=== PATIENT | female | born 1955 ===

== ENCOUNTER → 2017-10-04 | Outpatient (CLI) | payer BC ==
[~2017-10-04] MED LIST: ASPI81TA86 PO; CALC-734 PO; CEPH500C24 PO; CLON-327 PO; DEX4 PO; FOLI0.4T56 PO; IBUP-56 PO; LORA-1455 PO; LOSA50TA72 PO; MAGN27TA6 PO; MULT1CAP59 PO; POTA-23 PO; PROC10TA4 PO; SIMV-54 PO; THIA250T9 PO; TRI05T TP; TRIA15CR40 TOP
== END ==
LOC: RAD 08:40
PROVIDERS: ATTEND Internal Medicine Hematology
DX: C02.1 Malignant neoplasm of border of tongue (principal)

== ENCOUNTER 2017-11-22 08:30 | Outpatient (RCR) | payer BC ==
--- NOTE | 2017-09-26 19:21 | ONCOLOGY CONSULTATION ---
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 Status post primary resection with a right lateral partial glossectomy on April 19, 2017. Tumor size estimated at 1.7 x 1.2 cm with initial positive anterior margin. Adverse features were present including extensive perineural invasion and lymphovascular invasion. Lack of positivity for p16. Patient underwent additional oral biopsy of the floor of mouth and right neck dissection on May 24, 2017. Eight lymph nodes were removed which were all negative for malignancy. The floor of mouth biopsy was unremarkable. STAGE Pathologic T1 N0 M0, intermediate risk with the presence of perineural invasion and angiolymphatic invasion. HISTORY This is a 62-year-old lady who lives in the [place] area. She is referred to the Cancer Center at [facility] by her providers in [place] (her primary surgeon is Dr. Figueroa and she has been seen by Dr. Cassidy for Oncology recommendations). She was advised to strongly consider postoperative radiation therapy and concurrent chemotherapy. The latter will now be directed by Dr. Baldev Kimbrough, who will be seeing the patient on of this week. Excellent notes from Dr. Cassidy accompanied the consultation today and we also have her operative notes and discharge summary from Dr. Figueroa. Briefly, the patient has a significant history of tobacco use as well as ill- fitting dentures. Smoking history of up to two packs per day for most of her life (greater than 45 pack-year). Patient is now down to two cigarettes, but is having trouble stopping completely. The patient relates a palpable irregularity on the lateral aspect of her tongue and pain. She first was found to have a high suspicious lesion by her dentist who was doing a denture adjustment. She was referred to Dr. Driss Roman and was noted to have a lesion on the right ventral tongue and floor of the mouth with biopsy on March 15, 2017 revealing a moderately differentiated squamous cell carcinoma, p16 and stain negative. Patient then had a CT scan of the neck which revealed two right parapharyngeal lymph nodes measuring 1.6 x 0.[address] irregularity along the lateral aspect of the right posterior tongue as well as the floor of the mouth. Lesion measured roughly 1.6 cm. Patient was referred to Dr. Figueroa, who proceeded with a right lateral glossectomy. This confirmed a 1.7 cm grade 2 squamous cell carcinoma. Margins of approximately 3-4 mm. Anterior margin was initially positive. Adverse features also noted were perineural invasion as well as lymphovascular invasion. Patient underwent a second procedure on May 24, 2017, underwent a reexcision specimen from the mouth with a small graft. That specimen was negative for residual carcinoma. Eight lymph nodes were removed from the right neck which were all negative for malignancy. Daughter states that there was a piece of tissue that was lost later, which may have been the graft. Patient has had an uneventful postoperative course. She is able to consume solid and liquid foods. She presently is not wearing her dentures as she fully expects to have additional therapy at this time. Patient has a history of moderate alcohol use. She states she consumes three to four beers per day. She presently has moved to [place] to be close to her daughter who is an ICU nurse at . Patient's daughter accompanied her today for the consultation. MEDICATIONS 1. Losartan 50 mg q.day. 2. Folic acid 1 mg a day. 3. Calcium carbonate 1250 mg q.day. 4. Aspirin 81 mg a day. 5. Simvastatin 40 mg a day. ALLERGIES None. PAST MEDICAL HISTORY 1. Squamous cell carcinoma of the oral cavity with history listed above. 2. History of hypertension. 3. History of hypercholesterolemia. 4. History of tobacco dependence. PAST SURGICAL HISTORY 1. Right partial glossectomy and right neck lymph node dissection. 2. Prior appendectomy. 3. Cholecystectomy. 4. Left hip fracture repair. 5. Remote tubal ligation. SOCIAL HISTORY Lives with family in [place]. Forty to 80 pack per year smoking history. Presently down to two cigarettes per day. Moderate alcohol use. FAMILY HISTORY Notable for type 2 diabetes in one sister and one brother. Carcinoma in a paternal uncle. COMPREHENSIVE REVIEW OF SYSTEMS Patient denies any recent weight changes. No respiratory complaints with the exception of intermittent cough from longstanding smoking. No chest pain or palpitations. No GI complaints. No significant complaints at this time. No focal neurologic complaints. PHYSICAL EXAMINATION GENERAL: A pleasant 62-year-old female of medium build. VITAL SIGNS: Imported to EMR. INTRAORAL INSPECTION: Reveals post surgical changes of partial glossectomy on the right side. There is mild impairment of mobility of the tongue, but overall I would say she has good mobility. Suture line is noted along the floor of the mouth which is smooth. No leukoplakia noted. Gingiva is unremarkable. No secondary lesions appreciated. Tongue is soft. Patient is edentulous. Salivary function appeared to be adequate. LUNGS: Reveal expiratory rhonchi, but otherwise clear. HEART: Sounds regular. No audible murmur. ABDOMEN: Soft. No gross organomegaly. EXTREMITIES: Reveal bilateral clubbing. No cyanosis, however, or edema. NEUROLOGIC: Exam was grossly intact. The patient does have some difficulties with concentration and her short term memory, but when things were repeated to her, she seemed to fully understand. No focal weakness of the upper or lower extremities. IMPRESSION This is a 62-year-old female with a non-HPV related squamous cell carcinoma of the oral cavity. The tumor is 1.7 x 1.2 cm with estimated thickness of 5 mm. She has undergone appropriate surgical resection at this time. Lymph nodes fortunately were negative, although mildly enlarged on the preoperative studies. She did have a recent PET CT scan in [place], and I will try to track the results of that study down within the week. The predominant reason for the patient being seen in Oncology is the findings of two significant adverse features of her malignancy. These adverse features include perineural invasion as well as lymphovascular invasion. Literature search today defined risk of tumor recurrence for patients with oral cavity lesions on the order of 23% to 36% in multiple studies with clear margins. Patients without that feature have a relative risk of local recurrence of 5% to 9%. We have certainly seen higher risk of positive margins and tumor recurrence at other sites as well, including skin and prostate, whenever we see perineural invasion. Patient appeared to have a good understanding of that rationale after our discussion today. I would like to proceed to a postoperative radiotherapy dose of 60 Gy confined to the oral tongue and floor of the mouth, with careful attention to treatment technique with IMRT. We could use the left parotid and submandibular glands as avoidance structures. I should be able to also prevent significant radiotherapy to the right parotid gland. I presently favor covering the submental lymph node chain. I would only extend the radiotherapy course to a wider area if there was any gross lymphadenopathy on her treatment planning CT scan, or any suspicious areas on her recent PET CT scan in [place]. Field reduction will be performed after Gy (50.4 Gy in 28 fractions and 10 Gy in five fractions to complete the course). The patient will see Dr. River on of this week to discuss the possibility of concurrent chemotherapy with cisplatin during the radiation program. The patient has already reviewed the NCCN guidelines with Dr. Cassidy at her appointment, and she also saw the radiation oncologist at that time in [place] just to review the indications. Patient and daughter would like to get started as quickly as possible and I am certain we could make that happen within a timeframe of seven to 10 days. Patient would be refitted for her appropriate dentures about six weeks following the radiotherapy program completion. Therapeutic dose and treatment technique will be altered based on treatment tolerance. Signed consent was obtained today after reviewing potential acute and late side effects and therapeutic alternatives. I would like to thank Dr. Figueroa and Dr. Cassidy for the excellent records which accompanied the patient today. Consultation was completed in approximately 70 minutes from start to finish, allowing time for patient's questions to be answered. Daughter accompanied the patient, who will reiterate the plan to her later this evening. [facility]
--- NOTE | 2017-11-14 18:29 | ONCOLOGY FOLLOW UP NOTE ---
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 CHIEF COMPLAINT Patient is here today for weekly cisplatin. This will be week number seven, concurrent with radiation therapy for her floor of the mouth squamous cell carcinoma. 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 Patient was found to have a lesion in the right ventral tongue and the floor of the mouth. She had a biopsy done on March 15, 2017, which showed moderately differentiated squamous cell carcinoma. P16 stain is negative. CT scan of the neck showed two right parapharyngeal lymph nodes ranging up to 1.6 x 0.9 cm. It also showed irregular enhancing lesion along the right posterior tongue extending laterally to the floor of the mouth with ill-defined margins, roughly 1.6 cm in diameter and 0.6 cm in thickness. Patient has been seen by Dr. Figueroa, the middleware consultant in [place] and had a partial tongue excision without node biopsy or neck dissection done on April 19, 2017, and pathology came back positive for 1.7 cm moderately differentiated squamous cell carcinoma 5 mm thick, anterior margins positive and lymphovascular and perineural invasion are positive. She had a second procedure done on May 24, 2017 including laryngoscopy, right neck dissection and re-excision of the tongue at the floor of the mouth, and the pathology from the biopsy was negative for malignancy, and eight right neck lymph nodes were negative for malignancy. Patient started chemoradiation with weekly cisplatin on October 07, 2017. HISTORY OF PRESENT ILLNESS Patient is here today for week number seven of weekly cisplatin concurrent with radiation therapy for her floor of the mouth squamous cell carcinoma. She is tolerating treatment very well so far, except for hypomagnesemia. Denies any sore throat. She has easy bruising and she is weak, tired and fatigued. Other than that she is really doing very well. PAST MEDICAL HISTORY 1. Hypertension. 2. Hypercholesterolemia. PAST SURGICAL HISTORY 1. Appendectomy. 2. Cholecystectomy. 3. Hip fracture surgery. 4. Laryngoscopy, right neck dissection, re-excision of the tongue at the floor of the mouth. 5. Partial excision of the tongue and excision biopsy of the neck deep. 6. Right neck dissection, re-excision of the tongue and the floor of the mouth. 7. Tubal ligation. 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 She has over 45 years of tobacco abuse. Currently she smokes about two to three cigarettes a day. She drinks about a six pack per day. Denies any abuse of illicit drugs. FAMILY HISTORY Negative for cancer or blood diseases. CURRENT MEDICATIONS 1. Triamcinolone acetonide 0.5% cream topically twice daily. 2. Simvastatin 40 mg at bedtime. 3. Losartan potassium 50 mg tablet daily. 4. Magnesium amino acid chelate 27 mg tablet daily. 5. Folic acid 0.4 mg daily. 6. Calcium carbonate/vitamin D3, 500 mg of calcium one tablet daily. 7. Multivitamin one tablet daily. 8. Ibuprofen 200 mg two tablets as needed orally. ALLERGIES No known drug allergies. REVIEW OF SYSTEMS CONSTITUTIONAL: No appetite or weight change. No fever, chills or sweating. No recent infection. Patient has loss of taste to food. HEENT: Ears: No tinnitus or hearing problem. Nose: She has some nasal discharge. No epistaxis. Throat: She has some sore mouth. Eyes: No diplopia or visual changes. RESPIRATORY: Patient has some cough with expectoration. CARDIOVASCULAR: No chest pain, orthopnea, or paroxysmal nocturnal dyspnea (PND) . No edema. No palpitations. GASTROINTESTINAL: No nausea or vomiting. No diarrhea or constipation. No change in bowel movements. No heartburn or swallowing difficulties. No abdominal pain. No jaundice. No hematemesis, melena or rectal bleeding. GENITOURINARY: She has cloudy urine. MUSCULOSKELETAL: She has pain in the knees. NEUROLOGICAL: No tingling or numbness in the hands or feet. No headaches or convulsions. HEMATOLOGIC/LYMPHATIC: She bruises easily. She is weak, tired and fatigued. SKIN: No skin rash or lumps. PSYCHIATRIC: No anxiety or depression. PHYSICAL EXAMINATION GENERAL: Looks stable. Well-developed, well-nourished, and in no acute distress. VITAL SIGNS: Blood pressure 157/83, pulse 103 per minute, respirations 16 per minute, temperature 97.8, pulse ox 93% on room air. HEENT: Head: Atraumatic. No sinus tenderness to palpation. Eyes: No icterus or conjunctivitis. Mouth and throat: No oral thrush or mucositis. NECK: Supple. No cervical or supraclavicular lymphadenopathy. LUNGS: Clear to auscultation and percussion bilaterally. HEART: Regular rate and rhythm. No gallops, murmurs, clicks or rubs. ABDOMEN: Soft and lax. No tenderness. No hepatosplenomegaly. No masses. EXTREMITIES: No cyanosis, clubbing or edema. LYMPHATICS: No peripheral lymphadenopathy. NEUROLOGICAL: Conscious, alert and oriented times three. No focal motor or sensory deficits. PSYCHIATRIC: Mood and affect appear normal. SKIN: No skin rash, bruise or purpuric eruption. DIAGNOSTIC DATA CBC shows white count 3.4, hemoglobin 12.8, hematocrit 36.7, platelets 112,000. Chem panel totally normal except sodium 124, magnesium 1.4, blood sugar 137 and chloride 87. ASSESSMENT 1. 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 CT scan of the neck showed right parapharyngeal lymph node 1.6 cm., and irregular enhancing mass along the right posterior tongue extending laterally to the floor of the mouth with ill-defined margins. The size of the mass was 1.6 cm . Patient had partial tongue excision without node biopsy or neck dissection done April 19, 2017, and the pathology came back positive for 1.7 cm moderately differentiated squamous cell carcinoma, 5 mm thick. Anterior margin was positive and lymphovascular invasion and perineural invasion were also positive. Patient had re-biopsy and re-excision of the right tongue/floor of the mouth and right neck dissection done May 24, 2017, and the pathology showed no residual tumor, and eight neck lymph nodes were negative for metastasis. Given the adverse effects of perineural invasion and lymphovascular invasion, radiation therapy or concurrent chemoradiation is recommended. Patient started chemoradiation with cisplatin weekly as radiosensitizer started October 07, 2017. Patient finished six courses so far, and she is due for her course number seven on November 18, 2017. I am planning to proceed with her treatment as scheduled. Patient is tolerating chemoradiation very well currently except for magnesium wasting and sodium wasting. 2. Hyponatremia, most probably due to cisplatin therapy. Patient is taking sodium salts. 3. Hypomagnesemia. Current magnesium 1.4. Patient is encouraged to use her magnesium supplement orally. PLAN 1. Cisplatin. This will be cycle number seven to be given on November 18, 2017. 2. Patient to return in one week with CBC, chem panel and magnesium level. 3. Continue sodium and magnesium supplement orally. 4. Patient is to contact us for any new concerns or complaints. [facility]
[~2017-11-22 08:30] MED LIST changes: +FLUC100T35 PO
== END 2017-12-22 ==
LOC: RAON 08:30
PROVIDERS: ATTEND Radiology Radiation Oncology
DX: Z51.0 Encounter for antineoplastic radiation therapy (principal); C02.1 Malignant neoplasm of border of tongue; F17.210 Nicotine dependence, cigarettes, uncomplicated
CPT/HCPCS: 77280; 77290; 77300; 77301; 77334; 77336; 77338; 77386; 99203

== ENCOUNTER 2017-12-23 08:45 | Outpatient (RCR) | payer BC ==
[2017-09-26 08:10] VITALS: BP 129/74
--- NOTE | 2017-09-27 04:24 | ONCOLOGY FOLLOW UP NOTE ---
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 CHIEF COMPLAINT Patient is here today to discuss about chemoradiation for her head and neck cancer. HISTORY OF PRESENT ILLNESS Patient is a 62-year-old female who was diagnosed with biopsy-proven squamous cell carcinoma of the right floor of the mouth/tongue. Patient was found to have a lesion in the right ventral tongue and the floor of the mouth. She had a biopsy done on March 15, 2017, which showed moderately differentiated squamous cell carcinoma. P16 stain is negative. CT scan of the neck showed two right parapharyngeal lymph nodes ranging up to 1.6 x 0.9 cm. It also showed irregular enhancing lesion along the right posterior tongue extending laterally to the floor of the mouth with ill-defined margins, roughly 1.6 cm in diameter and 0.6 cm in thickness. Patient has been seen by Dr. Figueroa, the senior clinical consultant in [place] and had a partial tongue excision without node biopsy or neck dissection done on April 19, 2017, and pathology came back positive for 1.7 cm moderately differentiated squamous cell carcinoma 5 mm thick, anterior margins positive and lymphovascular and perineural invasion are positive. She had a second procedure done on May 24, 2017 including laryngoscopy, right neck dissection and re-excision of the tongue at the floor of the mouth, and the pathology from the biopsy was negative for malignancy, and eight right neck lymph nodes were negative for malignancy. PAST MEDICAL HISTORY 1. Hypertension. 2. Hypercholesterolemia. PAST SURGICAL HISTORY 1. Appendectomy. 2. Cholecystectomy. 3. Hip fracture surgery. 4. Laryngoscopy, right neck dissection, re-excision of the tongue at the floor of the mouth. 5. Partial excision of the tongue and excision biopsy of the neck deep. 6. Right neck dissection, re-excision of the tongue and the floor of the mouth. 7. Tubal ligation. 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 She has over 45 years of tobacco abuse. Currently she smokes about two to three cigarettes a day. She drinks about a six pack per day. Denies any abuse of illicit drugs. FAMILY HISTORY Negative for cancer or blood diseases. CURRENT MEDICATIONS 1. Triamcinolone acetonide 0.5% cream topically twice daily. 2. Simvastatin 40 mg at bedtime. 3. Losartan potassium 50 mg tablet daily. 4. Magnesium amino acid chelate 27 mg tablet daily. 5. Folic acid 0.4 mg daily. 6. Calcium carbonate/vitamin D3, 500 mg of calcium one tablet daily. 7. Multivitamin one tablet daily. 8. Ibuprofen 200 mg two tablets as needed orally. ALLERGIES No known drug allergies. REVIEW OF SYSTEMS CONSTITUTIONAL: No appetite or weight change. No fever, chills or sweating. No recent infection. HEENT: Ears: No tinnitus or hearing problem. Nose: She has some nasal discharge. No epistaxis. Throat: No sore throat or mouth ulcers. Eyes: No diplopia or visual changes. RESPIRATORY: No shortness of breath. No cough, expectoration or hemoptysis. CARDIOVASCULAR: No chest pain, orthopnea, or paroxysmal nocturnal dyspnea (PND) . No edema. No palpitations. GASTROINTESTINAL: No nausea or vomiting. No diarrhea or constipation. No change in bowel movements. No heartburn or swallowing difficulties. No abdominal pain. No jaundice. No hematemesis, melena or rectal bleeding. GENITOURINARY: No hematuria or dysuria. MUSCULOSKELETAL: No pain in the muscles, joints or bones. NEUROLOGICAL: No tingling or numbness in the hands or feet. No headaches or convulsions. HEMATOLOGIC/LYMPHATIC: No bleeding or easy bruising. No weakness or fatigue. No enlarged lymph nodes. SKIN: No skin rash or lumps. PSYCHIATRIC: No anxiety or depression. PHYSICAL EXAMINATION GENERAL: Looks stable. Well-developed, well-nourished, and in no acute distress. VITAL SIGNS: Blood pressure 129/74, pulse 80 per minute, respirations 16 per minute, temperature 97.1, pulse ox 93% on room air. HEENT: Head: Atraumatic. No sinus tenderness to palpation. Eyes: No icterus or conjunctivitis. Mouth and throat: No oral thrush or mucositis. NECK: Supple. No cervical or supraclavicular lymphadenopathy. LUNGS: Clear to auscultation and percussion bilaterally. HEART: Regular rate and rhythm. No gallops, murmurs, clicks or rubs. ABDOMEN: Soft and lax. No tenderness. No hepatosplenomegaly. No masses. EXTREMITIES: No cyanosis, clubbing or edema. LYMPHATICS: No peripheral lymphadenopathy. NEUROLOGICAL: Conscious, alert and oriented times three. No focal motor or sensory deficits. PSYCHIATRIC: Mood and affect appear normal. SKIN: No skin rash, bruise or purpuric eruption. ASSESSMENT 1. 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 CT scan of the neck showed right parapharyngeal lymph nodes ranging up to 1.[address] scan showed irregular enhancing lesion along the right posterior tongue extending laterally to the floor of the mouth with ill-defined margins. Diameter was 1.6 cm and 6.6 cm. She had partial tongue excision without node biopsy of neck dissection done on April 19, 2017, and the pathology showed 1.7 cm moderately differentiated squamous cell carcinoma 5 mm thick. Anterior margin was positive and lymphovascular and perineural invasion were present. She had a repeat biopsy/re-excision of the right tongue/floor of the mouth and right neck dissection done on May 24, 2017. There was no residual tumor and the eight right neck lymph nodes ere negative for metastasis. Given the adverse features of perineural invasion and lymphovascular invasion, radiation therapy or concurrent chemoradiation is recommended. Patient has been evaluated by Dr. Maza and I am planning to treat her with cisplatin weekly during her radiation therapy and radiosensitization. I spent a long time with the patient and her daughter explaining the plan of management and side effects expected from cisplatin, and they are agreeable with the plan of management. For administered of chemotherapy I am planning to place a PICC line, to be removed after she will finish her chemotherapy. Patient will start chemoradiation on October 07, 2017, and I will see her on October 11, 2017. I will check her CBC, chem panel and magnesium prior each infusion of cisplatin. PLAN 1. Patient to return on October 07, 2017 to start chemotherapy with weekly cisplatin and radiation therapy. 2. CBC, chem panel and magnesium to be checked prior to each infusion of cisplatin. 3. Patient to return for followup on October 11, 2017. 4. Patient is to contact us for any new concerns or complaints. [facility]
--- NOTE | 2017-10-04 15:49 | RADIOLOGY IMAGING REPORT ---
FACILITY: [facility] PATIENT NAME: Arely Mac : 1955 MR: [id number] V: [id number] EXAM DATE: ORDERING PHYSICIAN: MANISHA SHELTON TECHNOLOGIST: Location: [facility] [place] Patient: Arely Mac : 1955 Visit/Account:[id number] Date of Sevice: 09/26/2017 Exam type: PICC LINE INSERTION, PICC LINE PLACEMENT History: chemo Comparison: None. Findings: Informed consent was obtained. The patient's right arm was prepped and draped in usual sterile fashi on. Local anesthesia was accomplished with 1% lidocaine. Utilizing both sonographic and fluoroscopi c guidance a 31 cm long trimmed 5 Tajik double lumen power PICC was inserted via the patent right ba silic vein with the distal tip resting in superior vena cava. Both lumens of the power PICC were flu shed with 5 mL of saline flush. Proximal portion PICC line was adhered the patient's arm the sterile dressing. The sonographic images were saved to PACS. The procedure was accomplished without appare nt cortication. The fluoroscopy dose area product was 47.93 micro-Noguera per meter squared IMPRESSION: 1. Successful placement of a 31 cm long trimmed 5 Tajik double lumen power PICC inserted via the pa tent right basilic vein with the distal tip resting in superior vena cava. Report Dictated By: Carrie Brandt MD at 10/04/2017 3:44 PM Report E-Signed By: Carrie Brandt MD at 10/04/2017 3:46 PM WSN:[email or web address]
--- NOTE | 2017-10-04 15:49 | RADIOLOGY IMAGING REPORT ---
FACILITY: [facility] PATIENT NAME: Arely Mac : 1955 MR: [id number] V: [id number] EXAM DATE: ORDERING PHYSICIAN: MANISHA SHELTON TECHNOLOGIST: Location: [facility] [place] Patient: Arely Mac : 1955 Visit/Account:[id number] Date of Sevice: 09/26/2017 Exam type: PICC LINE INSERTION, PICC LINE PLACEMENT History: chemo Comparison: None. Findings: Informed consent was obtained. The patient's right arm was prepped and draped in usual sterile fashi on. Local anesthesia was accomplished with 1% lidocaine. Utilizing both sonographic and fluoroscopi c guidance a 31 cm long trimmed 5 Italian double lumen power PICC was inserted via the patent right ba silic vein with the distal tip resting in superior vena cava. Both lumens of the power PICC were flu shed with 5 mL of saline flush. Proximal portion PICC line was adhered the patient's arm the sterile dressing. The sonographic images were saved to PACS. The procedure was accomplished without appare nt cortication. The fluoroscopy dose area product was 47.93 micro-Noguera per meter squared IMPRESSION: 1. Successful placement of a 31 cm long trimmed 5 Italian double lumen power PICC inserted via the pa tent right basilic vein with the distal tip resting in superior vena cava. Report Dictated By: Carrie Brandt MD at 10/04/2017 3:44 PM Report E-Signed By: Carrie Brandt MD at 10/04/2017 3:46 PM WSN:[email or web address]
[2017-10-07 09:07] VITALS: BP 111/71
[2017-10-07] MEDS: NS(*) 0.9% 1000 ML BAG 1,000 ML IV PRN (09:15)
[2017-10-07] MEDS: NS(*) 0.9% 500 ML BAG 500 ML IV PRN (10:01)
[2017-10-07] MEDS: DEXAMETHASONE SOD PHOS 10MG/ML IVP PRN (10:32)
[2017-10-07] MEDS: PALONOSETRON 0.25 MG/5 ML VIAL IVP PRN (10:32)
[2017-10-07] MEDS: FOSAPREPITANT DIM 150 MG/5 ML 150 MG in NS(*) 0.9% 250 ML BAG 245 ML IVPB PRN (11:14)
[2017-10-07] MEDS: [UNRECOGNIZED DRUG - OTHER] IV PRN (13:04)
[2017-10-07] MEDS: KCL IV PRN (13:04)
[2017-10-07] MEDS: MAGNESIUM SULF IV PRN (13:04)
--- NOTE | 2017-10-08 15:22 | Medical Nutrition Therapy ---
Nutritional Education Nutrition Education Topic: Other (Ca Nutrtion) Learning Readiness: Interested Teaching Methods: Handout Response to Teaching: Verbalize understanding Teaching Recipient: Patient Nutrition Counseling: Lare entry for 3?19: Pt states has lost some wt post dx. Decreased appetite. Reviewed handout on increasing kcal and protein. Discussed easy to chew food. Encouraged pt to try smoothies and provided several handouts. pt admised to contact RD if she has further nutritional issues. Nutrition Monitoring & Eval RD Patient Assessment Time: 15 minutes Nutritional Comment: Provided 20 minutes MNT for Ca dx. Copies To Copies to: MANISHA SHELTON MD, BETH Oct 08, 2017 15:22
[2017-10-11 08:07] VITALS: BP 127/77
--- NOTE | 2017-10-12 17:15 | ONCOLOGY FOLLOW UP NOTE ---
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 CHIEF COMPLAINT Patient is here today for followup of her head and neck cancer on chemoradiation with cisplatin weekly. 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 Patient was found to have a lesion in the right ventral tongue and the floor of the mouth. She had a biopsy done on March 15, 2017, which showed moderately differentiated squamous cell carcinoma. P16 stain is negative. CT scan of the neck showed two right parapharyngeal lymph nodes ranging up to 1.6 x 0.9 cm. It also showed irregular enhancing lesion along the right posterior tongue extending laterally to the floor of the mouth with ill-defined margins, roughly 1.6 cm in diameter and 0.6 cm in thickness. Patient has been seen by Dr. Figueroa, the automotive internet sales consultant in [place] and had a partial tongue excision without node biopsy or neck dissection done on April 19, 2017, and pathology came back positive for 1.7 cm moderately differentiated squamous cell carcinoma 5 mm thick, anterior margins positive and lymphovascular and perineural invasion are positive. She had a second procedure done on May 24, 2017 including laryngoscopy, right neck dissection and re-excision of the tongue at the floor of the mouth, and the pathology from the biopsy was negative for malignancy, and eight right neck lymph nodes were negative for malignancy. Patient started chemoradiation with weekly cisplatin on October 07, 2017. 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 She tolerated the first week of cisplatin very well without complications or complaints. Apart from having easy bruising, patient really is doing very well. PAST MEDICAL HISTORY 1. Hypertension. 2. Hypercholesterolemia. PAST SURGICAL HISTORY 1. Appendectomy. 2. Cholecystectomy. 3. Hip fracture surgery. 4. Laryngoscopy, right neck dissection, re-excision of the tongue at the floor of the mouth. 5. Partial excision of the tongue and excision biopsy of the neck deep. 6. Right neck dissection, re-excision of the tongue and the floor of the mouth. 7. Tubal ligation. 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 She has over 45 years of tobacco abuse. Currently she smokes about two to three cigarettes a day. She drinks about a six pack per day. Denies any abuse of illicit drugs. FAMILY HISTORY Negative for cancer or blood diseases. CURRENT MEDICATIONS 1. Triamcinolone acetonide 0.5% cream topically twice daily. 2. Simvastatin 40 mg at bedtime. 3. Losartan potassium 50 mg tablet daily. 4. Magnesium amino acid chelate 27 mg tablet daily. 5. Folic acid 0.4 mg daily. 6. Calcium carbonate/vitamin D3, 500 mg of calcium one tablet daily. 7. Multivitamin one tablet daily. 8. Ibuprofen 200 mg two tablets as needed orally. ALLERGIES No known drug allergies. REVIEW OF SYSTEMS CONSTITUTIONAL: No appetite or weight change. No fever, chills or sweating. No recent infection. HEENT: Ears: No tinnitus or hearing problem. Nose: She has some nasal discharge. No epistaxis. Throat: No sore throat or mouth ulcers. Eyes: No diplopia or visual changes. RESPIRATORY: No shortness of breath. No cough, expectoration or hemoptysis. CARDIOVASCULAR: No chest pain, orthopnea, or paroxysmal nocturnal dyspnea (PND) . No edema. No palpitations. GASTROINTESTINAL: No nausea or vomiting. No diarrhea or constipation. No change in bowel movements. No heartburn or swallowing difficulties. No abdominal pain. No jaundice. No hematemesis, melena or rectal bleeding. GENITOURINARY: No hematuria or dysuria. MUSCULOSKELETAL: No pain in the muscles, joints or bones. NEUROLOGICAL: No tingling or numbness in the hands or feet. No headaches or convulsions. HEMATOLOGIC/LYMPHATIC: She bruises easily. No weakness or fatigue. No enlarged lymph nodes. SKIN: No skin rash or lumps. PSYCHIATRIC: No anxiety or depression. PHYSICAL EXAMINATION GENERAL: Looks stable. Well-developed, well-nourished, and in no acute distress. VITAL SIGNS: Blood pressure 127/77, pulse 94 per minute, respirations 16 per minute, temperature 98.3, pulse ox 91% on room air. HEENT: Head: Atraumatic. No sinus tenderness to palpation. Eyes: No icterus or conjunctivitis. Mouth and throat: No oral thrush or mucositis. NECK: Supple. No cervical or supraclavicular lymphadenopathy. LUNGS: Clear to auscultation and percussion bilaterally. HEART: Regular rate and rhythm. No gallops, murmurs, clicks or rubs. ABDOMEN: Soft and lax. No tenderness. No hepatosplenomegaly. No masses. EXTREMITIES: No cyanosis, clubbing or edema. LYMPHATICS: No peripheral lymphadenopathy. NEUROLOGICAL: Conscious, alert and oriented times three. No focal motor or sensory deficits. PSYCHIATRIC: Mood and affect appear normal. SKIN: No skin rash, bruise or purpuric eruption. DIAGNOSTIC DATA CBC showed white count 10,000, hemoglobin 15.4, hematocrit 44, platelets 263, 000. Chem panel totally normal except sodium 132, chloride 95, blood sugar 128 , AST 58, alkaline phosphatase 142, other parameters are normal. 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 CT scan of the neck showed right parapharyngeal lymph nodes ranging from 1.[address] scan showed irregular enhancing lesion along the right posterior tongue extending laterally to the floor of the mouth with ill-defined margins. Diameter was 1.6 cm. She had partial tongue excision without node biopsy of neck dissection done on April 19, 2017, and the pathology showed 1.7 cm moderately differentiated squamous cell carcinoma 5 mm thick. Anterior margin was positive and lymphovascular and perineural invasion were present. She had a re-biopsy and re-excision of the right tongue/floor of the mouth and right neck dissection done on May 24, 2017. There was no residual tumor and eight right neck lymph nodes were negative for metastasis. Given the adverse features of perineural invasion and lymphovascular invasion, radiation therapy or concurrent chemoradiation is recommended. Patient has been evaluated by Dr. Maza and she started chemoradiation with weekly cisplatin as radiosensitizer started on October 07, 2017. She tolerated the first week very well without much complications. I am planning to proceed with her second week. I will continue to monitor her CBC, chem panel and magnesium level every week. I will see her in the week with the same labs. Patient will have her second dose of cisplatin on October 14, 2017. PLAN 1. Cisplatin week number two, to be given on October 14, 2017. 2. CBC, chem panel and magnesium level to be checked weekly. 3. Patient to return in one week with the same labs. 4. Patient is to contact us for any new concerns or complaints. [facility]
[2017-10-14 09:29] LABS: PLATELET COUNT, AUTOMATED 242 K/uL (150-450)
[2017-10-14 10:10] VITALS: BP 135/78
[2017-10-14] MEDS: NS(*) 0.9% 1000 ML BAG 1,000 ML IV PRN (10:30)
[2017-10-14] MEDS: NS(*) 0.9% 500 ML BAG 500 ML IV PRN (10:30)
[2017-10-14] MEDS: PALONOSETRON 0.25 MG/5 ML VIAL IVP PRN (10:54)
[2017-10-14] MEDS: DEXAMETHASONE SOD PHOS 10MG/ML IVP PRN (10:54)
[2017-10-14] MEDS: FOSAPREPITANT DIM 150 MG/5 ML 150 MG in NS(*) 0.9% 250 ML BAG 245 ML IVPB PRN (11:12)
[2017-10-14] MEDS: KCL IV PRN (13:03)
[2017-10-14] MEDS: MAGNESIUM SULF IV PRN (13:03)
[2017-10-14] MEDS: [UNRECOGNIZED DRUG - OTHER] IV PRN (13:03)
[2017-10-14 15:10] VITALS: BP 146/83
[2017-10-18 09:35] VITALS: BP 143/78
--- NOTE | 2017-10-18 18:11 | ONCOLOGY FOLLOW UP NOTE ---
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 CHIEF COMPLAINT Patient is here today for followup of her head and neck cancer on chemoradiation with cisplatin weekly. 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 Patient was found to have a lesion in the right ventral tongue and the floor of the mouth. She had a biopsy done on March 15, 2017, which showed moderately differentiated squamous cell carcinoma. P16 stain is negative. CT scan of the neck showed two right parapharyngeal lymph nodes ranging up to 1.6 x 0.9 cm. It also showed irregular enhancing lesion along the right posterior tongue extending laterally to the floor of the mouth with ill-defined margins, roughly 1.6 cm in diameter and 0.6 cm in thickness. Patient has been seen by Dr. Figueroa, the partner management consultant in [place] and had a partial tongue excision without node biopsy or neck dissection done on April 19, 2017, and pathology came back positive for 1.7 cm moderately differentiated squamous cell carcinoma 5 mm thick, anterior margins positive and lymphovascular and perineural invasion are positive. She had a second procedure done on May 24, 2017 including laryngoscopy, right neck dissection and re-excision of the tongue at the floor of the mouth, and the pathology from the biopsy was negative for malignancy, and eight right neck lymph nodes were negative for malignancy. Patient started chemoradiation with weekly cisplatin on October 07, 2017. 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 Patient is tolerating chemoradiation very well so far. She is complaining of some cough with expectoration, which is normal for her, but other than that she does not have any other complaint. PAST MEDICAL HISTORY 1. Hypertension. 2. Hypercholesterolemia. PAST SURGICAL HISTORY 1. Appendectomy. 2. Cholecystectomy. 3. Hip fracture surgery. 4. Laryngoscopy, right neck dissection, re-excision of the tongue at the floor of the mouth. 5. Partial excision of the tongue and excision biopsy of the neck deep. 6. Right neck dissection, re-excision of the tongue and the floor of the mouth. 7. Tubal ligation. 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 She has over 45 years of tobacco abuse. Currently she smokes about two to three cigarettes a day. She drinks about a six pack per day. Denies any abuse of illicit drugs. FAMILY HISTORY Negative for cancer or blood diseases. CURRENT MEDICATIONS 1. Triamcinolone acetonide 0.5% cream topically twice daily. 2. Simvastatin 40 mg at bedtime. 3. Losartan potassium 50 mg tablet daily. 4. Magnesium amino acid chelate 27 mg tablet daily. 5. Folic acid 0.4 mg daily. 6. Calcium carbonate/vitamin D3, 500 mg of calcium one tablet daily. 7. Multivitamin one tablet daily. 8. Ibuprofen 200 mg two tablets as needed orally. ALLERGIES No known drug allergies. REVIEW OF SYSTEMS CONSTITUTIONAL: No appetite or weight change. No fever, chills or sweating. No recent infection. HEENT: Ears: No tinnitus or hearing problem. Nose: She has some nasal discharge. No epistaxis. Throat: No sore throat or mouth ulcers. Eyes: No diplopia or visual changes. RESPIRATORY: Patient has some cough with expectoration. CARDIOVASCULAR: No chest pain, orthopnea, or paroxysmal nocturnal dyspnea (PND) . No edema. No palpitations. GASTROINTESTINAL: No nausea or vomiting. No diarrhea or constipation. No change in bowel movements. No heartburn or swallowing difficulties. No abdominal pain. No jaundice. No hematemesis, melena or rectal bleeding. GENITOURINARY: No hematuria or dysuria. MUSCULOSKELETAL: No pain in the muscles, joints or bones. NEUROLOGICAL: No tingling or numbness in the hands or feet. No headaches or convulsions. HEMATOLOGIC/LYMPHATIC: She bruises easily. No weakness or fatigue. No enlarged lymph nodes. SKIN: No skin rash or lumps. PSYCHIATRIC: No anxiety or depression. PHYSICAL EXAMINATION GENERAL: Looks stable. Well-developed, well-nourished, and in no acute distress. VITAL SIGNS: Blood pressure 143/78, pulse 97 per minute, respirations 16 per minute, temperature 96.7, pulse ox 94% on room air. HEENT: Head: Atraumatic. No sinus tenderness to palpation. Eyes: No icterus or conjunctivitis. Mouth and throat: No oral thrush or mucositis. NECK: Supple. No cervical or supraclavicular lymphadenopathy. LUNGS: Clear to auscultation and percussion bilaterally. HEART: Regular rate and rhythm. No gallops, murmurs, clicks or rubs. ABDOMEN: Soft and lax. No tenderness. No hepatosplenomegaly. No masses. EXTREMITIES: No cyanosis, clubbing or edema. LYMPHATICS: No peripheral lymphadenopathy. NEUROLOGICAL: Conscious, alert and oriented times three. No focal motor or sensory deficits. PSYCHIATRIC: Mood and affect appear normal. SKIN: No skin rash, bruise or purpuric eruption. DIAGNOSTIC DATA CBC showed white count 12.4, hemoglobin 14.4, hematocrit 40.6, platelets 242, 000. Chem panel is totally normal, except sodium 129, chloride 93, blood sugar 121, AST 42. Other parameters are normal. Her magnesium level is normal at 1.7. 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 CT scan of the neck showed right parapharyngeal lymph nodes ranging from 1.[address] scan showed irregular enhancing lesion along the right posterior tongue extending laterally to the floor of the mouth with ill-defined margins. Diameter was 1.6 cm. She had partial tongue excision without node biopsy or neck dissection done April 19, 2017, and the pathology showed 1.7 cm moderately differentiated squamous cell carcinoma 5 mm thick. Anterior margin was positive and lymphovascular invasion and perineural invasion were present. She had a re-biopsy and re-excision of the right tongue/floor of the mouth and right neck dissection done on May 24, 2017. There was no residual tumor and eight right neck lymph nodes were negative for metastasis. Given the adverse features of perineural invasion and lymphovascular invasion, radiation therapy or concurrent chemoradiation is recommended. Patient started chemoradiation with cisplatin weekly as radiosensitizer started October 07, 2017. She had two doses of cisplatin so far without complications. I am planning to proceed with her third dose as per schedule. I will see her in a week with CBC, chem panel and magnesium level. She is due for her third dose of cisplatin on October 21, 2017 PLAN 1. Cisplatin week number three, to be given on October 21, 2017. 2. Patient to return in one week with CBC, chem panel and magnesium level. 3. Patient is to contact us for any new concerns or complaints. [facility]
[2017-10-21 09:10] VITALS: BP 120/80
[2017-10-21] MEDS: NS(*) 0.9% 1000 ML BAG 1,000 ML IV PRN (09:26)
[2017-10-21] MEDS: PALONOSETRON 0.25 MG/5 ML VIAL IVP PRN (10:17)
[2017-10-21] MEDS: DEXAMETHASONE SOD PHOS 10MG/ML IVP PRN (10:17)
[2017-10-21] MEDS: FOSAPREPITANT DIM 150 MG/5 ML 150 MG in NS(*) 0.9% 250 ML BAG 245 ML IVPB PRN (10:30)
[2017-10-21] MEDS: KCL IV PRN (12:24)
[2017-10-21] MEDS: [UNRECOGNIZED DRUG - OTHER] IV PRN (12:24)
[2017-10-21] MEDS: MAGNESIUM SULF IV PRN (12:24)
[2017-10-21 14:43] VITALS: BP 147/71
[2017-10-25 09:27] VITALS: BP 132/81
--- NOTE | 2017-10-25 16:38 | ONCOLOGY FOLLOW UP NOTE ---
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 CHIEF COMPLAINT Patient is here today for followup of her head and neck cancer on chemoradiation with cisplatin weekly. 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 Patient was found to have a lesion in the right ventral tongue and the floor of the mouth. She had a biopsy done on March 15, 2017, which showed moderately differentiated squamous cell carcinoma. P16 stain is negative. CT scan of the neck showed two right parapharyngeal lymph nodes ranging up to 1.6 x 0.9 cm. It also showed irregular enhancing lesion along the right posterior tongue extending laterally to the floor of the mouth with ill-defined margins, roughly 1.6 cm in diameter and 0.6 cm in thickness. Patient has been seen by Dr. Figueroa, the child welfare consultant in [place] and had a partial tongue excision without node biopsy or neck dissection done on April 19, 2017, and pathology came back positive for 1.7 cm moderately differentiated squamous cell carcinoma 5 mm thick, anterior margins positive and lymphovascular and perineural invasion are positive. She had a second procedure done on May 24, 2017 including laryngoscopy, right neck dissection and re-excision of the tongue at the floor of the mouth, and the pathology from the biopsy was negative for malignancy, and eight right neck lymph nodes were negative for malignancy. Patient started chemoradiation with weekly cisplatin on October 07, 2017. 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 Patient is tolerating chemoradiation very well so far. She has started to loose a taste of food. She has also pain in her knees, and she has some cloudy urine. Other than that she is really doing very well. Denies any sore throat. PAST MEDICAL HISTORY 1. Hypertension. 2. Hypercholesterolemia. PAST SURGICAL HISTORY 1. Appendectomy. 2. Cholecystectomy. 3. Hip fracture surgery. 4. Laryngoscopy, right neck dissection, re-excision of the tongue at the floor of the mouth. 5. Partial excision of the tongue and excision biopsy of the neck deep. 6. Right neck dissection, re-excision of the tongue and the floor of the mouth. 7. Tubal ligation. 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 She has over 45 years of tobacco abuse. Currently she smokes about two to three cigarettes a day. She drinks about a six pack per day. Denies any abuse of illicit drugs. FAMILY HISTORY Negative for cancer or blood diseases. CURRENT MEDICATIONS 1. Triamcinolone acetonide 0.5% cream topically twice daily. 2. Simvastatin 40 mg at bedtime. 3. Losartan potassium 50 mg tablet daily. 4. Magnesium amino acid chelate 27 mg tablet daily. 5. Folic acid 0.4 mg daily. 6. Calcium carbonate/vitamin D3, 500 mg of calcium one tablet daily. 7. Multivitamin one tablet daily. 8. Ibuprofen 200 mg two tablets as needed orally. ALLERGIES No known drug allergies. REVIEW OF SYSTEMS CONSTITUTIONAL: No appetite or weight change. No fever, chills or sweating. No recent infection. Patient has loss of taste to food. HEENT: Ears: No tinnitus or hearing problem. Nose: She has some nasal discharge. No epistaxis. Throat: No sore throat or mouth ulcers. Eyes: No diplopia or visual changes. RESPIRATORY: Patient has some cough with expectoration. CARDIOVASCULAR: No chest pain, orthopnea, or paroxysmal nocturnal dyspnea (PND) . No edema. No palpitations. GASTROINTESTINAL: No nausea or vomiting. No diarrhea or constipation. No change in bowel movements. No heartburn or swallowing difficulties. No abdominal pain. No jaundice. No hematemesis, melena or rectal bleeding. GENITOURINARY: She has cloudy urine. MUSCULOSKELETAL: She has pain in the knees. NEUROLOGICAL: No tingling or numbness in the hands or feet. No headaches or convulsions. HEMATOLOGIC/LYMPHATIC: She bruises easily. No weakness or fatigue. No enlarged lymph nodes. SKIN: No skin rash or lumps. PSYCHIATRIC: No anxiety or depression. PHYSICAL EXAMINATION GENERAL: Looks stable. Well-developed, well-nourished, and in no acute distress. VITAL SIGNS: Blood pressure 132/81, pulse 98 per minute, respirations 16 per minute, temperature 97, pulse ox 92% on room air. HEENT: Head: Atraumatic. No sinus tenderness to palpation. Eyes: No icterus or conjunctivitis. Mouth and throat: No oral thrush or mucositis. NECK: Supple. No cervical or supraclavicular lymphadenopathy. LUNGS: Clear to auscultation and percussion bilaterally. HEART: Regular rate and rhythm. No gallops, murmurs, clicks or rubs. ABDOMEN: Soft and lax. No tenderness. No hepatosplenomegaly. No masses. EXTREMITIES: No cyanosis, clubbing or edema. LYMPHATICS: No peripheral lymphadenopathy. NEUROLOGICAL: Conscious, alert and oriented times three. No focal motor or sensory deficits. PSYCHIATRIC: Mood and affect appear normal. SKIN: No skin rash, bruise or purpuric eruption. DIAGNOSTIC DATA CBC showed white count 8.4, hemoglobin 13.8, hematocrit 38.9, platelets 244, 000. Chem panel is totally normal, except sodium 129, chloride 92, blood sugar 120, alkaline phosphatase 129, magnesium 1.9 which is normal. 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 CT scan of the neck showed right parapharyngeal lymph nodes ranging from 1.6 cm., and irregular enhancing mass along the right posterior tongue extending laterally to the floor of the mouth with ill-defined margins. Diameter was 1.6 cm for the mass. She had partial tongue excision without node biopsy or neck dissection done April 19, 2017, and pathology showed 1.7 cm moderately differentiated squamous cell carcinoma 5 mm thick. Anterior margin was positive and lymphovascular invasion and perineural invasion was also present. She had re-biopsy and re-excision of the right tongue/floor of hte mouth and right neck dissection done May 24, 2017. Pathology showed no residual tumor and eight right neck lymph nodes were negative for metastasis. Given the adverse features of perineural invasion and lymphovascular invasion, radiation therapy or concurrent chemoradiation is recommended. Patient started chemoradiation with cisplatin weekly as radiosensitizer started October 07, 2017. She finished three courses so far, and I am planning to proceed with her fourth course on October 28, 2017. I will see her in a week with CBC, chem panel and magnesium level. Generally speaking she is tolerating treatment very well so far. PLAN 1. Cisplatin week number four, to be given on October 28, 2017. 2. Patient to return in one week with CBC, chem panel and magnesium level. 3. Patient is to contact us for any new concern or complaints. [facility]
[2017-10-28] MEDS: NS(*) 0.9% 1000 ML BAG 1,000 ML IV PRN (09:43)
[2017-10-28 09:55] VITALS: BP 149/75
[2017-10-28] MEDS: PALONOSETRON 0.25 MG/5 ML VIAL IVP PRN (10:10)
[2017-10-28] MEDS: DEXAMETHASONE SOD PHOS 10MG/ML IVP PRN (10:11)
[2017-10-28] MEDS: FOSAPREPITANT DIM 150 MG/5 ML 150 MG in NS(*) 0.9% 250 ML BAG 245 ML IVPB PRN (10:48)
[2017-10-28] MEDS: NS(*) 0.9% 500 ML BAG 500 ML IV PRN (10:48)
[2017-10-28] MEDS: MAGNESIUM SULF IV PRN (12:34)
[2017-10-28] MEDS: KCL IV PRN (12:34)
[2017-10-28] MEDS: [UNRECOGNIZED DRUG - OTHER] IV PRN (12:34)
[2017-10-28 14:40] VITALS: BP 167/86
[2017-10-31 08:41] VITALS: BP 160/84
--- NOTE | 2017-10-31 17:55 | ONCOLOGY FOLLOW UP NOTE ---
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 CHIEF COMPLAINT Patient is here today for followup of her head and neck cancer on chemoradiation with cisplatin weekly. This will be week number five. 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 Patient was found to have a lesion in the right ventral tongue and the floor of the mouth. She had a biopsy done on March 15, 2017, which showed moderately differentiated squamous cell carcinoma. P16 stain is negative. CT scan of the neck showed two right parapharyngeal lymph nodes ranging up to 1.6 x 0.9 cm. It also showed irregular enhancing lesion along the right posterior tongue extending laterally to the floor of the mouth with ill-defined margins, roughly 1.6 cm in diameter and 0.6 cm in thickness. Patient has been seen by Dr. Figueroa, the devops consultant in [place] and had a partial tongue excision without node biopsy or neck dissection done on April 19, 2017, and pathology came back positive for 1.7 cm moderately differentiated squamous cell carcinoma 5 mm thick, anterior margins positive and lymphovascular and perineural invasion are positive. She had a second procedure done on May 24, 2017 including laryngoscopy, right neck dissection and re-excision of the tongue at the floor of the mouth, and the pathology from the biopsy was negative for malignancy, and eight right neck lymph nodes were negative for malignancy. Patient started chemoradiation with weekly cisplatin on October 07, 2017. 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 Patient so far is tolerating treatment very well. Apart from having occasional knee pains patient really is doing very well. She denies any sore throat. PAST MEDICAL HISTORY 1. Hypertension. 2. Hypercholesterolemia. PAST SURGICAL HISTORY 1. Appendectomy. 2. Cholecystectomy. 3. Hip fracture surgery. 4. Laryngoscopy, right neck dissection, re-excision of the tongue at the floor of the mouth. 5. Partial excision of the tongue and excision biopsy of the neck deep. 6. Right neck dissection, re-excision of the tongue and the floor of the mouth. 7. Tubal ligation. 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 She has over 45 years of tobacco abuse. Currently she smokes about two to three cigarettes a day. She drinks about a six pack per day. Denies any abuse of illicit drugs. FAMILY HISTORY Negative for cancer or blood diseases. CURRENT MEDICATIONS 1. Triamcinolone acetonide 0.5% cream topically twice daily. 2. Simvastatin 40 mg at bedtime. 3. Losartan potassium 50 mg tablet daily. 4. Magnesium amino acid chelate 27 mg tablet daily. 5. Folic acid 0.4 mg daily. 6. Calcium carbonate/vitamin D3, 500 mg of calcium one tablet daily. 7. Multivitamin one tablet daily. 8. Ibuprofen 200 mg two tablets as needed orally. ALLERGIES No known drug allergies. REVIEW OF SYSTEMS CONSTITUTIONAL: No appetite or weight change. No fever, chills or sweating. No recent infection. Patient has loss of taste to food. HEENT: Ears: No tinnitus or hearing problem. Nose: She has some nasal discharge. No epistaxis. Throat: No sore throat or mouth ulcers. Eyes: No diplopia or visual changes. RESPIRATORY: Patient has some cough with expectoration. CARDIOVASCULAR: No chest pain, orthopnea, or paroxysmal nocturnal dyspnea (PND) . No edema. No palpitations. GASTROINTESTINAL: No nausea or vomiting. No diarrhea or constipation. No change in bowel movements. No heartburn or swallowing difficulties. No abdominal pain. No jaundice. No hematemesis, melena or rectal bleeding. GENITOURINARY: She has cloudy urine. MUSCULOSKELETAL: She has occasional knee pains. NEUROLOGICAL: No tingling or numbness in the hands or feet. No headaches or convulsions. HEMATOLOGIC/LYMPHATIC: She bruises easily. No weakness or fatigue. No enlarged lymph nodes. SKIN: No skin rash or lumps. PSYCHIATRIC: No anxiety or depression. PHYSICAL EXAMINATION GENERAL: Looks stable. Well-developed, well-nourished, and in no acute distress. VITAL SIGNS: Blood pressure 160/84, pulse 85 per minute, respirations 16 per minute, temperature 97.1, pulse ox 93% on room air. HEENT: Head: Atraumatic. No sinus tenderness to palpation. Eyes: No icterus or conjunctivitis. Mouth and throat: No oral thrush or mucositis. NECK: Supple. No cervical or supraclavicular lymphadenopathy. LUNGS: Clear to auscultation and percussion bilaterally. HEART: Regular rate and rhythm. No gallops, murmurs, clicks or rubs. ABDOMEN: Soft and lax. No tenderness. No hepatosplenomegaly. No masses. EXTREMITIES: No cyanosis, clubbing or edema. LYMPHATICS: No peripheral lymphadenopathy. NEUROLOGICAL: Conscious, alert and oriented times three. No focal motor or sensory deficits. PSYCHIATRIC: Mood and affect appear normal. SKIN: No skin rash, bruise or purpuric eruption. DIAGNOSTIC DATA CBC showed white count 8.1, hemoglobin 13.6, hematocrit 38.2, platelets 207, 000. Chem panel totally normal except blood sugar 126, creatinine 0.5, chloride 90. Other parameters are normal. 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 CT scan of the neck showed right parapharyngeal lymph nodes ranging from 1.6 cm., and irregular enhancing mass along the right posterior tongue extending laterally to the floor of the mouth with ill-defined margins. Diameter of this mass was 1.6 cm . She had partial tongue excision without node biopsy or neck dissection done April 19, 2017, and the pathology showed 1.7 cm moderately differentiated squamous cell carcinoma 5 mm thick. Anterior margin was positive and lymphovascular invasion and perineural invasion were also positive. She had re-biopsy and re-excision of the right tongue/floor of the mouth and right neck dissection done May 24, 2017, and the pathology showed no residual tumor and eight neck lymph nodes were negative for metastasis. Given the adverse effects of perineural invasion and lymphovascular invasion, radiation therapy or concurrent chemoradiation is recommended. Patient started chemoradiation with cisplatin weekly as radiosensitizer started October 07, 2017. She finished four cycles so far, and I am planning to proceed with her fifth cycle. Patient is doing really very well currently without complaints related to her radiation. I am planning to see her in a week prior to the next dose of chemotherapy with CBC, chem panel and magnesium level. PLAN 1. Cisplatin to be given on November 04, 2017. 2. Patient to return in one week with CBC, chem panel and magnesium level. 3. Patient is to contact us for any new concern or complaints. [facility]
[2017-11-04 09:30] VITALS: BP 150/71
[2017-11-04] MEDS: NS(*) 0.9% 1000 ML BAG 1,000 ML IV PRN (10:04)
[2017-11-04] MEDS: PALONOSETRON 0.25 MG/5 ML VIAL IVP PRN (10:57)
[2017-11-04] MEDS: DEXAMETHASONE SOD PHOS 10MG/ML IVP PRN (10:58)
[2017-11-04] MEDS: FOSAPREPITANT DIM 150 MG/5 ML 150 MG in NS(*) 0.9% 250 ML BAG 245 ML IVPB PRN (12:16)
[2017-11-04] MEDS: [UNRECOGNIZED DRUG - OTHER] IV PRN (14:22)
[2017-11-04] MEDS: MAGNESIUM SULF IV PRN (14:22)
[2017-11-04] MEDS: KCL IV PRN (14:22)
[2017-11-04 16:33] VITALS: BP 161/73
[2017-11-04] MEDS: NS(*) 0.9% 500 ML BAG 500 ML IV PRN (16:35)
[2017-11-07 07:58] VITALS: BP 186/93
--- NOTE | 2017-11-07 19:09 | ONCOLOGY FOLLOW UP NOTE ---
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 CHIEF COMPLAINT Patient is here today for her week number six of cisplatin therapy, concurrent with radiation therapy for her floor of the mouth squamous cell carcinoma. 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 Patient was found to have a lesion in the right ventral tongue and the floor of the mouth. She had a biopsy done on March 15, 2017, which showed moderately differentiated squamous cell carcinoma. P16 stain is negative. CT scan of the neck showed two right parapharyngeal lymph nodes ranging up to 1.6 x 0.9 cm. It also showed irregular enhancing lesion along the right posterior tongue extending laterally to the floor of the mouth with ill-defined margins, roughly 1.6 cm in diameter and 0.6 cm in thickness. Patient has been seen by Dr. Figueroa, the sustainable design consultant in [place] and had a partial tongue excision without node biopsy or neck dissection done on April 19, 2017, and pathology came back positive for 1.7 cm moderately differentiated squamous cell carcinoma 5 mm thick, anterior margins positive and lymphovascular and perineural invasion are positive. She had a second procedure done on May 24, 2017 including laryngoscopy, right neck dissection and re-excision of the tongue at the floor of the mouth, and the pathology from the biopsy was negative for malignancy, and eight right neck lymph nodes were negative for malignancy. Patient started chemoradiation with weekly cisplatin on October 07, 2017. HISTORY OF PRESENT ILLNESS Patient is here today for week number six of cisplatin weekly concurrent with radiation therapy for her floor of the mouth squamous cell carcinoma. Patient tolerating treatment very well so far. She is complaining of some pain in her knees, and she has some soreness in her mouth, but other than that she is really doing very well. PAST MEDICAL HISTORY 1. Hypertension. 2. Hypercholesterolemia. PAST SURGICAL HISTORY 1. Appendectomy. 2. Cholecystectomy. 3. Hip fracture surgery. 4. Laryngoscopy, right neck dissection, re-excision of the tongue at the floor of the mouth. 5. Partial excision of the tongue and excision biopsy of the neck deep. 6. Right neck dissection, re-excision of the tongue and the floor of the mouth. 7. Tubal ligation. 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 She has over 45 years of tobacco abuse. Currently she smokes about two to three cigarettes a day. She drinks about a six pack per day. Denies any abuse of illicit drugs. FAMILY HISTORY Negative for cancer or blood diseases. CURRENT MEDICATIONS 1. Triamcinolone acetonide 0.5% cream topically twice daily. 2. Simvastatin 40 mg at bedtime. 3. Losartan potassium 50 mg tablet daily. 4. Magnesium amino acid chelate 27 mg tablet daily. 5. Folic acid 0.4 mg daily. 6. Calcium carbonate/vitamin D3, 500 mg of calcium one tablet daily. 7. Multivitamin one tablet daily. 8. Ibuprofen 200 mg two tablets as needed orally. ALLERGIES No known drug allergies. REVIEW OF SYSTEMS CONSTITUTIONAL: No appetite or weight change. No fever, chills or sweating. No recent infection. Patient has loss of taste to food. HEENT: Ears: No tinnitus or hearing problem. Nose: She has some nasal discharge. No epistaxis. Throat: She has some sore mouth. Eyes: No diplopia or visual changes. RESPIRATORY: Patient has some cough with expectoration. CARDIOVASCULAR: No chest pain, orthopnea, or paroxysmal nocturnal dyspnea (PND) . No edema. No palpitations. GASTROINTESTINAL: No nausea or vomiting. No diarrhea or constipation. No change in bowel movements. No heartburn or swallowing difficulties. No abdominal pain. No jaundice. No hematemesis, melena or rectal bleeding. GENITOURINARY: She has cloudy urine. MUSCULOSKELETAL: She has pain in the knees. NEUROLOGICAL: No tingling or numbness in the hands or feet. No headaches or convulsions. HEMATOLOGIC/LYMPHATIC: She bruises easily. No weakness or fatigue. No enlarged lymph nodes. SKIN: No skin rash or lumps. PSYCHIATRIC: No anxiety or depression. PHYSICAL EXAMINATION GENERAL: Looks stable. Well-developed, well-nourished, and in no acute distress. VITAL SIGNS: Blood pressure 186/93, pulse 82 per minute, respirations 16 per minute, temperature 98.2, pulse ox 98% on room air. HEENT: Head: Atraumatic. No sinus tenderness to palpation. Eyes: No icterus or conjunctivitis. Mouth and throat: No oral thrush or mucositis. NECK: Supple. No cervical or supraclavicular lymphadenopathy. LUNGS: Clear to auscultation and percussion bilaterally. HEART: Regular rate and rhythm. No gallops, murmurs, clicks or rubs. ABDOMEN: Soft and lax. No tenderness. No hepatosplenomegaly. No masses. EXTREMITIES: No cyanosis, clubbing or edema. LYMPHATICS: No peripheral lymphadenopathy. NEUROLOGICAL: Conscious, alert and oriented times three. No focal motor or sensory deficits. PSYCHIATRIC: Mood and affect appear normal. SKIN: No skin rash, bruise or purpuric eruption. DIAGNOSTIC DATA CBC showed white count 5.5, hemoglobin 13.2, hematocrit 37.3, platelets 140, 000. Chem panel totally normal except sodium 128, chloride 89, blood sugar 137. Alkaline phosphatase 128. Magnesium is normal at 1.7. 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 CT scan of the neck showed right parapharyngeal lymph node 1.6 cm., and irregular enhancing mass along the right posterior tongue extending laterally to the floor of the mouth with ill-defined margins. The size of this mass was 1.6 cm . She had partial tongue excision without node biopsy or neck dissection done April 19, 2017, and the pathology came back positive for 1.7 cm moderately differentiated squamous cell carcinoma, 5 mm thick. Anterior margin was positive and lymphovascular invasion and perineural invasion were also positive. She had re-biopsy and re-excision of the right tongue/floor of the mouth and right neck dissection done May 24, 2017, and the pathology showed no residual tumor and eight neck lymph nodes were negative for metastasis. Given the adverse effects of perineural invasion and lymphovascular invasion, radiation therapy or concurrent chemoradiation is recommended. Patient started chemoradiation with cisplatin weekly as radiosensitizer started October 07, 2017. Patient finished five courses so far, and I am planning to proceed with her sixth course at this time. I am planning to use cisplatin weekly until the patient will end her radiation therapy. So far she is doing very well and tolerating treatment very well too. I am planning to see her in a week with CBC , chem panel and magnesium level. PLAN 1. Cisplatin, which will be given on November 11, 2017. 2. Patient to return in one week with CBC, chem panel and magnesium level. 3. Patient is to contact us for any new concerns or complaints. [facility]
[2017-11-11 09:43] VITALS: BP 148/71
[2017-11-11] MEDS: NS(*) 0.9% 1000 ML BAG 1,000 ML IV PRN (10:17)
[2017-11-11] MEDS: DEXAMETHASONE SOD PHOS 10MG/ML IVP PRN (11:11)
[2017-11-11] MEDS: PALONOSETRON 0.25 MG/5 ML VIAL IVP PRN (11:11)
[2017-11-11] MEDS: FOSAPREPITANT DIM 150 MG/5 ML 150 MG in NS(*) 0.9% 250 ML BAG 245 ML IVPB PRN (11:26)
[2017-11-11] MEDS: MAGNESIUM SULF IV PRN (13:25)
[2017-11-11] MEDS: KCL IV PRN (13:25)
[2017-11-11] MEDS: [UNRECOGNIZED DRUG - OTHER] IV PRN (13:25)
[2017-11-11 15:31] VITALS: BP 168/77
[2017-11-14 08:10] VITALS: BP 154/83
[2017-11-18] MEDS: NS(*) 0.9% 1000 ML BAG 1,000 ML IV PRN (10:06)
[2017-11-18] MEDS: FOSAPREPITANT DIM 150 MG/5 ML 150 MG in NS(*) 0.9% 250 ML BAG 245 ML IVPB PRN (13:00)
[2017-11-18] MEDS: PALONOSETRON 0.25 MG/5 ML VIAL IVP PRN (13:02)
[2017-11-18] MEDS: DEXAMETHASONE SOD PHOS 10MG/ML IVP PRN (13:02)
[2017-11-18] MEDS: KCL IV PRN (15:16)
[2017-11-18] MEDS: MAGNESIUM SULF IV PRN (15:16)
[2017-11-18] MEDS: [UNRECOGNIZED DRUG - OTHER] IV PRN (15:16)
[2017-11-18 17:34] VITALS: BP 140/81
[2017-11-22 08:12] VITALS: BP 142/78
--- NOTE | 2017-11-22 14:55 | [facility] ONCOLOGY NOTE ---
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 CHIEF COMPLAINT Patient is here today for followup of her floor of the mouth squamous cell carcinoma. 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 Patient was found to have a lesion in the right ventral tongue and the floor of the mouth. She had a biopsy done on March 15, 2017, which showed moderately differentiated squamous cell carcinoma. P16 stain is negative. CT scan of the neck showed two right parapharyngeal lymph nodes ranging up to 1.6 x 0.9 cm. It also showed irregular enhancing lesion along the right posterior tongue extending laterally to the floor of the mouth with ill-defined margins, roughly 1.6 cm in diameter and 0.6 cm in thickness. Patient has been seen by Dr. Figueroa, the network consultant in [place] and had a partial tongue excision without node biopsy or neck dissection done on April 19, 2017, and pathology came back positive for 1.7 cm moderately differentiated squamous cell carcinoma 5 mm thick, anterior margins positive and lymphovascular and perineural invasion are positive. She had a second procedure done on May 24, 2017 including laryngoscopy, right neck dissection and re-excision of the tongue at the floor of the mouth, and the pathology from the biopsy was negative for malignancy, and eight right neck lymph nodes were negative for malignancy. Patient started chemoradiation with weekly cisplatin on October 07, 2017. Patient received seven weekly doses of cisplatin during her radiation therapy, completed on November 14, 2017, and she finished her radiation therapy on November 22, 2017. 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 She completed her chemotherapy, and she will complete her radiation therapy today. She is doing fine currently, except she had nasal discharge. She has dry cough. She has nausea and diarrhea. She has pain in her ankles. She bruises easily. She is weak, tired and fatigued. PAST MEDICAL HISTORY 1. Hypertension. 2. Hypercholesterolemia. PAST SURGICAL HISTORY 1. Appendectomy. 2. Cholecystectomy. 3. Hip fracture surgery. 4. Laryngoscopy, right neck dissection, re-excision of the tongue at the floor of the mouth. 5. Partial excision of the tongue and excision biopsy of the neck deep. 6. Right neck dissection, re-excision of the tongue and the floor of the mouth. 7. Tubal ligation. 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 She has over 45 years of tobacco abuse. Currently she smokes about two to three cigarettes a day. She drinks about a six pack per day. Denies any abuse of illicit drugs. FAMILY HISTORY Negative for cancer or blood diseases. CURRENT MEDICATIONS 1. Triamcinolone acetonide 0.5% cream topically twice daily. 2. Simvastatin 40 mg at bedtime. 3. Losartan potassium 50 mg tablet daily. 4. Magnesium amino acid chelate 27 mg tablet daily. 5. Folic acid 0.4 mg daily. 6. Calcium carbonate/vitamin D3, 500 mg of calcium one tablet daily. 7. Multivitamin one tablet daily. 8. Ibuprofen 200 mg two tablets as needed orally. ALLERGIES No known drug allergies. REVIEW OF SYSTEMS CONSTITUTIONAL: No appetite or weight change. No fever, chills or sweating. No recent infection. HEENT: Ears: No tinnitus or hearing problem. Nose: She has nasal discharge. Throat: No sore throat or mouth ulcers. Eyes: No diplopia or visual changes. RESPIRATORY: She has cough. CARDIOVASCULAR: No chest pain, orthopnea, or paroxysmal nocturnal dyspnea (PND) . No edema. No palpitations. GASTROINTESTINAL: She has nausea and diarrhea. GENITOURINARY: No hematuria or dysuria. MUSCULOSKELETAL: She has pain in her ankles. NEUROLOGICAL: No tingling or numbness in the hands or feet. No headaches or convulsions. HEMATOLOGIC/LYMPHATIC: She bruises easily. She is weak, tired and fatigued. SKIN: No skin rash or lumps. PSYCHIATRIC: No anxiety or depression. PHYSICAL EXAMINATION GENERAL: Looks stable. Well-developed, well-nourished, and in no acute distress. VITAL SIGNS: Blood pressure 142/78, pulse 123 per minute, respirations 16 per minute, temperature 96.9, pulse oximetry 94% on room air. HEENT: Head: Atraumatic. No sinus tenderness to palpation. Eyes: No icterus or conjunctivitis. Mouth and throat: No oral thrush or mucositis. NECK: Supple. No cervical or supraclavicular lymphadenopathy. LUNGS: Clear to auscultation and percussion bilaterally. HEART: Regular rate and rhythm. No gallops, murmurs, clicks or rubs. ABDOMEN: Soft and lax. No tenderness. No hepatosplenomegaly. No masses. EXTREMITIES: No cyanosis, clubbing or edema. LYMPHATICS: No peripheral lymphadenopathy. NEUROLOGICAL: Conscious, alert and oriented times three. No focal motor or sensory deficits. PSYCHIATRIC: Mood and affect appear normal. SKIN: No skin rash, bruise or purpuric eruption. DIAGNOSTIC DATA CBC shows white count 2.1, hemoglobin 11.5, hematocrit 31.9, platelets 99,000. ANC 1.2. Chem panel totally normal except sodium 127, blood sugar 141, magnesium 1.3. ASSESSMENT 1. 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 CT scan of the neck showed right parapharyngeal lymph node 1.6 cm., and irregular enhancing mass 1.6 cm along the right posterior tongue extending laterally to the floor of the mouth with ill-defined margins. Patient had partial tongue excision without node biopsy or neck dissection done March, and pathology was positive for 1.7 cm moderately differentiated squamous cell carcinoma, 5 mm thick. Anterior margin was positive and lymphovascular invasion and perineural invasion were also positive. Patient had re-excision of the right tongue/floor of the mouth and right neck dissection done May 24, 2017, and the pathology showed no residual tumor, and eight neck lymph nodes came back negative for metastasis. Given her adverse effects of perineural invasion and lymphovascular invasion, radiation therapy or concurrent chemoradiation was recommended. Patient received chemoradiation with seven weekly doses of cisplatin between October 07, 2017 through November 22, 2017. Apart from having hypomagnesemia and some fatigue, and hyponatremia, patient really is doing very well currently. I am planning to check her CBC, Chem panel and magnesium levels weekly, and I will see her in a month with CBC, Chem panel and a magnesium level until she recovers her electrolyte disturbances and her blood count. 2. Hyponatremia, most probably due to cisplatin therapy. Patient is taking sodium salts. Her current sodium 127, is getting a little bit better. 3. Hypomagnesemia. Current magnesium level 1.3. Patient started magnesium supplement orally last week, and I will administer 4 g of magnesium sulfate intravenously today. 4. Leukopenia due to chemotherapy. Currently white count 2.1, and ANC 1.2. Will continue to monitor, as the patient finished her chemotherapy. 5. Chemotherapy-induced thrombocytopenia. Current platelet count 99,000. Will continue to monitor her blood count weekly. 6. Chemotherapy-induced anemia. Current hemoglobin 11.5 g/dL. I will consider blood transfusion if the hemoglobin drops below 8 g/dL. PLAN 1. Magnesium sulfate 4 g IV infusion today. 2. CBC, chem panel and magnesium level to be checked weekly. 3. Patient to return in one month with CBC, chem panel and magnesium level. 4. Patient to contact us for any new concerns or complaints. MTDD
[2017-11-25 09:30] VITALS: BP 135/90
[2017-11-25 09:39] LABS: PLATELET COUNT, AUTOMATED 134 K/uL (150-450)
[2017-12-02 08:46] VITALS: BP 109/76
[2017-12-02 09:56] LABS: PLATELET COUNT, AUTOMATED 185 K/uL (150-450)
[2017-12-09 08:34] VITALS: BP 147/77
[2017-12-09 09:13] LABS: PLATELET COUNT, AUTOMATED 186 K/uL (150-450)
[~2017-12-23] VITALS: Ht 170.2 cm; Wt 71.5 kg
[~2017-12-23 08:45] MED LIST changes: +ALTEPLASE RECOMB 2 MG VIAL IVP PRN; +CISPLATIN IV ONE; +DEXTROSE 5%(*) 100 ML BAG 100 ML IVPB PRN; +MAGNESIUM SUL* 4 GM/100 ML BAG 100 ML IVPB ONE; +MAGNESIUM SULFATE IVPB ONE; +NS 0.9% IV ONE; +NS 0.9% IVPB ONE; +NS(*) 0.9% 100 ML BAG 100 ML IVPB PRN; +WATER FOR INJ,STERILE 20 ML IVP PRN
[2017-12-23 09:38] LABS: PLATELET COUNT, AUTOMATED 196 K/uL (150-450)
[2017-12-23 10:07] VITALS: BP 98/77
[2017-12-23] MEDS: NS(*) 0.9% 500 ML BAG 500 ML IV PRN (13:30)
== END 2017-12-24 ==
LOC: SPU 08:45
PROVIDERS: ATTEND Internal Medicine Hematology
DX: Z51.11 Encounter for antineoplastic chemotherapy (principal); C04.9 Malignant neoplasm of floor of mouth, unspecified; F17.210 Nicotine dependence, cigarettes, uncomplicated; Z79.899 Other long term (current) drug therapy; R63.0 Anorexia; I10 Essential (primary) hypertension; E78.00 Pure hypercholesterolemia, unspecified
CPT/HCPCS: 36415; 36592; 77336; 83735; 84100; 85025; 85027; 96360; 96361; 96365; 96366; 96367; 96375; 96413; 97802; 99212; J1100; J1453; J2469; J2997; J3475; J3480; J7030; J7040; J7050; J9060; 36569; 76937; 82040; 82247; 82310; 82374; 82435; 82565; 82947; 84075; 84132; 84155; 84295; 84450; 84460; 84520; C1751

== ENCOUNTER 2017-12-23 09:45 | Outpatient (RCR) | payer BC ==
--- NOTE | 2017-10-08 07:22 | PT INITIAL EVALUATION ---
MEDICAL DIAGNOSIS: Tongue Cancer TREATMENT DIAGNOSIS: Tongue Cancer DATE OF ONSET: 10/07/17 SUBJECTIVE: Arely is a 62 year-old female presenting to oncology rehabilitation following recent diagnosis of tongue cancer. Pt started having problems with her mouth in January of 2017 and following biopsy was diagnosed in March 2017. Following in April, pt underwent partial tongue and oral floor resection with margins unclear following pathology examination. Pt later had right side cervical lymph node dissection in May 2017. Following a healing period, pt is to initiate both Cisplatin chemotherapy and radiation therapy treatment today to address any lingering cancer tissue. Pt reports that she is currently feeling a little anxious about starting treatment, but is otherwise ok. Pt currently lives with her daughter who is an ICU nurse at [employer] [facility] and her family. Pt reports that her only major problem currently is some lingering numbness in the tongue affecting taste as well as some difficulty wearing her dentures following post surgical swelling resulting in her not wearing them at all. REHAB PROBLEM LIST: Decreased ROM Decreased Function Decreased ADL's Decreased Mobility PREVIOUS MEDICAL HISTORY: See EMR OCCUPATION: Unemployed on disability following a hip fracture. OBJECTIVE: Pt has a well healing incision on the R anterior neck without any evidence of redness or swelling. Posture: Pt has increased thoracic kyphosis with rounded shoulders and forward head. ROM: Cervical ROM: Extension: moderate restrictions without pain, flexion: full without pain, L SB: moderate restrictions with tightness, R SB: full without pain, B Rotation: full without pain. Palpation: Incision has moderate adhesions present on the proximal aspect with good mobility on the distal aspect Special Tests: FACT-G: PWB: , SWB: 16.3/, EWB: , FWB: , Total: 77.3/108 Modified Head and Neck QOL Instrument: Indicative of slight difficulty with communication and taste. Mobility: ECOG Performance Status: Grade 2 ASSESSMENT: Arely shows signs and symptoms consistent with tongue cancer diagnosis following surgical intervention. Physical therapy is indicated for this patient to address the above listed deficits as well as to maintain function with the initiation of medical and radiation oncology treatment. Education was provided for this patient on functional side-effects from treatment with Non Destructive Evaluation Specialist, and Pt's daugher present for education as well. It is my impression that this patient would also benefit from HUMAN RESOURCES GENERALIST services to address already developing deficits in oral functioning. Short Term Goals In 2 weeks pt will increase cervical ROM to minimal restrictions only or less for improved functional mobility with ADL's. In 3 MO pt will maintain ECOG Performance Status of grade 2 or less for maintenance of function with ADL's and improved oncological outcomes. In 6 MO pt will increase cervical ROM to full in all directions without pain for improved mobility and function with ADL's. In 6 MO pt will maintain FACT-G of 70 or greater for maintained functional well -being with ADL's. In 6 MO pt will maintain ECOG Performance Status of grade 2 or less for maintenance of function with ADL's and improved oncological outcomes. Patient's Goals Maintain current functional status with ADL's. PLAN: Patient to be seen for Manual Therapy/STM/MET Strengthening/condition Ice/Heat Range of Motion Spinal Stabilization Ultrasound Stretching Iontophoresis Neuromuscular Re-ed Closed Chain Program Electrical Stim Posture/Body mechanics Gait Trg/Balance Trg Biofeedback Home Exercise Program Mech./Manual Traction Therapeutic Activities 1x/Week for 4 Months If you have any questions, comments, or concerns about this report or plan, please contact me at . Thank you, Mckayla Soto, PT, DPT, CLT MTDD
--- NOTE | 2017-11-11 12:56 | PT PLAN OF CARE ---
Physician: OLU Goncalves Patient is being seen: 1x/2Weeks PRN Therapist: Mckayla Soto, PT, DPT, CLT Medical Diagnosis: Tongue Cancer Treatment Diagnosis: Tongue Cancer Date of Onset: 10/07/17 Date of Initial Evaluation: 10/07/17 Date patient was last seen: 11/11/17 Number of treatments: 4 Number of cancellations/No shows: 0 INTERVENTIONS: Manual Therapy/STM/MET Strengthening/condition Ice/Heat Range of Motion Spinal Stabilization Ultrasound Stretching Iontophoresis Neuromuscular Re-ed Closed Chain Program Electrical Stim Posture/Body mechanics Gait Trg/Balance Trg Biofeedback Home Exercise Program Mech./Manual Traction Therapeutic Activities GOALS: In 2 weeks pt will increase cervical ROM to minimal restrictions only or less for improved functional mobility with ADL's. MET In 3 MO pt will maintain ECOG Performance Status of grade 2 or less for maintenance of function with ADL's and improved oncological outcomes. In 6 MO pt will increase cervical ROM to full in all directions without pain for improved mobility and function with ADL's. In 6 MO pt will maintain FACT-G of 70 or greater for maintained functional well -being with ADL's. In 6 MO pt will maintain ECOG Performance Status of grade 2 or less for maintenance of function with ADL's and improved oncological outcomes. PATIENT'S GOAL: Maintain current functional status with ADL's. Status of Patient's Goals: In Progress Patient Compliance: Good Prognosis: Good Reasons for continuing therapy: Arely shows good progress with home exercise program and shows improved neck ROM and soft tissue mobility despite ongoing radiation treatment. At this time pt has near full ROM without any pain or stretch in all planes. Pt continues to maintain activity level but does report some increased fatigue following chemotherapy. At this time pt reports no pain or loss of function. OBJECTIVE: Pt has a well healing incision on the R anterior neck without any evidence of redness or swelling. Posture: Pt has slight increased thoracic kyphosis with rounded shoulders and forward head. ROM: Cervical ROM: Extension: minimal restrictions without pain, flexion: full without pain, B SB: Minimal restrictions without pain, B Rotation: full without pain. Palpation: Incision has minimal adhesions present on the proximal aspect with good mobility on the distal aspect Special Tests: FACT-G (EVAL): PWB: , SWB: 16.3, EWB: , FWB: , Total: 77.3/108 FACT-G (11/11/17): PWB: , SWB: 19.6/, EWB: , FWB: , Total: 77.6/108 Modified Head and Neck QOL Instrument: Indicative of slight difficulty with communication and taste. Mobility: ECOG Performance Status: Grade 2 If you have any questions, comments, or concerns about this report or plan, please contact me at . Thank you, Mckayla Soto, PT, DPT, CLT MTDD
[~2017-12-23 09:45] MED LIST changes: -ALTEPLASE RECOMB 2 MG VIAL IVP PRN; -CISPLATIN IV ONE; -DEXTROSE 5%(*) 100 ML BAG 100 ML IVPB PRN; -MAGNESIUM SUL* 4 GM/100 ML BAG 100 ML IVPB ONE; -MAGNESIUM SULFATE IVPB ONE; -NS 0.9% IV ONE; -NS 0.9% IVPB ONE; -NS(*) 0.9% 100 ML BAG 100 ML IVPB PRN; -WATER FOR INJ,STERILE 20 ML IVP PRN
--- NOTE | 2017-12-23 10:44 | PT PLAN OF CARE ---
Physician: OLU Goncalves Patient is being seen: 1x/Week Therapist: Mckayla Soto, PT, DPT, CLT Medical Diagnosis: Tongue Cancer Treatment Diagnosis: Tongue Cancer Date of Onset: 10/07/17 Date of Initial Evaluation: 10/07/17 Date patient was last seen: 12/23/17 Number of treatments: 5 Number of cancellations/No shows: 0 INTERVENTIONS: Manual Therapy/STM/MET Strengthening/condition Ice/Heat Range of Motion Spinal Stabilization Ultrasound Stretching Iontophoresis Neuromuscular Re-ed Closed Chain Program Electrical Stim Posture/Body mechanics Gait Trg/Balance Trg Biofeedback Home Exercise Program Mech./Manual Traction Therapeutic Activities GOALS: In 2 weeks pt will increase cervical ROM to minimal restrictions only or less for improved functional mobility with ADL's. MET In 3 MO pt will maintain ECOG Performance Status of grade 2 or less for maintenance of function with ADL's and improved oncological outcomes. MET In 6 MO pt will increase cervical ROM to full in all directions without pain for improved mobility and function with ADL's. MET In 6 MO pt will maintain FACT-G of 70 or greater for maintained functional well -being with ADL's. In 6 MO pt will maintain ECOG Performance Status of grade 2 or less for maintenance of function with ADL's and improved oncological outcomes. PATIENT'S GOAL: Maintain current functional status with ADL's. Status of Patient's Goals: In Progress Patient Compliance: Good Prognosis: Good Reasons for continuing therapy: Arely now shows full cervical ROM without pain or limitations. However, pt shows B swelling L>R with 2+ pitting and slight redness on the L LE without pain or warmth and a negative Stemmer's sign on B feet. Edema was significantly improved on the R and slightly improved on the L following manual lymph drainage. Pt educated about initiating compression stockings to promote venous flow as well as performing a home exercise program of muscle pump exercises to promote return. Pt overall well-being scores remain stable with little change. Pt to be monitored weekly for edema management. Pt also reports 2 falls in the last month secondary to dizziness with likely orthostatic hypotension with initiating ambulation. Pt educated on providing time for possibly delayed HR response secondary to chemo. OBJECTIVE: Pt has a well healing incision on the R anterior neck without any evidence of redness or swelling. Posture: Pt has slight increased thoracic kyphosis with rounded shoulders and forward head. ROM: Cervical ROM: Full without pain or restrictions Palpation: Incision has minimal adhesions present on the proximal aspect with good mobility on the distal aspect Special Tests: FACT-G (EVAL): PWB: /, SWB: 16.3/, EWB: , FWB: , Total: 77.3/108 FACT-G (11/11/17): PWB: /, SWB: 19.6/, EWB: , FWB: , Total: 77.6/108 FACT-G (12/23/17): PWB: /, SWB: 23.3/, EWB: , FWB: , Total: 81.3/108 Modified Head and Neck QOL Instrument: Indicative of slight difficulty with communication and taste. Mobility: ECOG Performance Status: Grade 2 If you have any questions, comments, or concerns about this report or plan, please contact me at . Thank you, Mckayla Soto, PT, DPT, CLT MTDD
== END 2018-01-05 ==
LOC: PT 09:45
PROVIDERS: ATTEND Internal Medicine Hematology
DX: C01 Malignant neoplasm of base of tongue (principal); R20.2 Paresthesia of skin
CPT/HCPCS: 97162

== ENCOUNTER 2017-12-27 15:26 | Outpatient (RCR) | payer BC ==
[~2017-12-27 15:26] MED LIST changes: -LOSA50TA72 PO; +LOSA50TA74 PO
[2017-12-27 15:31] VITALS: BP 145/78
--- NOTE | 2017-12-27 17:58 | ONCOLOGY FOLLOW UP NOTE ---
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 CHIEF COMPLAINT Patient is here today for followup of her floor of the mouth squamous cell carcinoma. 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 Patient was found to have a lesion in the right ventral tongue and the floor of the mouth. She had a biopsy done on March 15, 2017, which showed moderately differentiated squamous cell carcinoma. P16 stain is negative. CT scan of the neck showed two right parapharyngeal lymph nodes ranging up to 1.6 x 0.9 cm. It also showed irregular enhancing lesion along the right posterior tongue extending laterally to the floor of the mouth with ill-defined margins, roughly 1.6 cm in diameter and 0.6 cm in thickness. Patient has been seen by Dr. Figueroa, the wardrobe image consultant in [place] and had a partial tongue excision without node biopsy or neck dissection done on April 19, 2017, and pathology came back positive for 1.7 cm moderately differentiated squamous cell carcinoma 5 mm thick, anterior margins positive and lymphovascular and perineural invasion are positive. She had a second procedure done on May 24, 2017 including laryngoscopy, right neck dissection and re-excision of the tongue at the floor of the mouth, and the pathology from the biopsy was negative for malignancy, and eight right neck lymph nodes were negative for malignancy. Patient started chemoradiation with weekly cisplatin on October 07, 2017. Patient received seven weekly doses of cisplatin during her radiation therapy, completed on November 14, 2017, and she finished her radiation therapy on November 22, 2017. HISTORY OF PRESENT ILLNESS Patient is here today for follow up of her floor of the mouth squamous cell carcinoma. She has some dry cough occasionally. She continues to have occasional diarrhea. She is weak, tired and fatigued, but generally speaking she is stable. PAST MEDICAL HISTORY 1. Hypertension. 2. Hypercholesterolemia. PAST SURGICAL HISTORY 1. Appendectomy. 2. Cholecystectomy. 3. Hip fracture surgery. 4. Laryngoscopy, right neck dissection, re-excision of the tongue at the floor of the mouth. 5. Partial excision of the tongue and excision biopsy of the neck deep. 6. Right neck dissection, re-excision of the tongue and the floor of the mouth. 7. Tubal ligation. 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 She has over 45 years of tobacco abuse. Currently she smokes about two to three cigarettes a day. She drinks about a six pack per day. Denies any abuse of illicit drugs. FAMILY HISTORY Negative for cancer or blood diseases. CURRENT MEDICATIONS 1. Triamcinolone acetonide 0.5% cream topically twice daily. 2. Simvastatin 40 mg at bedtime. 3. Losartan potassium 50 mg tablet daily. 4. Magnesium amino acid chelate 27 mg tablet daily. 5. Folic acid 0.4 mg daily. 6. Calcium carbonate/vitamin D3, 500 mg of calcium one tablet daily. 7. Multivitamin one tablet daily. 8. Ibuprofen 200 mg two tablets as needed orally. ALLERGIES No known drug allergies. REVIEW OF SYSTEMS CONSTITUTIONAL: No appetite or weight change. No fever, chills or sweating. No recent infection. HEENT: Ears: No tinnitus or hearing problem. Nose: She has nasal discharge. Throat: No sore throat or mouth ulcers. Eyes: No diplopia or visual changes. RESPIRATORY: She has dry cough. CARDIOVASCULAR: No chest pain, orthopnea, or paroxysmal nocturnal dyspnea (PND) . No edema. No palpitations. GASTROINTESTINAL: She has diarrhea occasionally. GENITOURINARY: No hematuria or dysuria. MUSCULOSKELETAL: She has pain in her ankles. NEUROLOGICAL: No tingling or numbness in the hands or feet. No headaches or convulsions. HEMATOLOGIC/LYMPHATIC: She bruises easily. She is weak, tired and fatigued. SKIN: No skin rash or lumps. PSYCHIATRIC: No anxiety or depression. PHYSICAL EXAMINATION GENERAL: Looks stable. Well-developed, well-nourished, and in no acute distress. VITAL SIGNS: Blood pressure 145/78, pulse 116 per minute, respirations 16 per minute, temperature 97.8, pulse oximetry 94% on room air. HEENT: Head: Atraumatic. No sinus tenderness to palpation. Eyes: No icterus or conjunctivitis. Mouth and throat: No oral thrush or mucositis. NECK: Supple. No cervical or supraclavicular lymphadenopathy. LUNGS: Clear to auscultation and percussion bilaterally. HEART: Regular rate and rhythm. No gallops, murmurs, clicks or rubs. ABDOMEN: Soft and lax. No tenderness. No hepatosplenomegaly. No masses. EXTREMITIES: No cyanosis, clubbing or edema. LYMPHATICS: No peripheral lymphadenopathy. NEUROLOGICAL: Conscious, alert and oriented times three. No focal motor or sensory deficits. PSYCHIATRIC: Mood and affect appear normal. SKIN: No skin rash, bruise or purpuric eruption. DIAGNOSTIC DATA CBC shows white count 5.1, hemoglobin 10.9, hematocrit 31, platelets 196,000. Chem panel totally normal except sodium 120, potassium 5.4, chloride 86, blood sugar 134, alkaline phosphatase 176. Magnesium is normal at 1.8. ASSESSMENT 1. 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 CT scan of the neck showed right parapharyngeal lymph node 1.6 cm., and irregular enhancing mass 1.6 cm along the right posterior tongue extending laterally to the floor of the mouth with ill-defined margins. Patient had partial tongue excision without node biopsy or neck dissection done March, and pathology was positive for 1.7 cm moderately differentiated squamous cell carcinoma, 5 mm thick. Anterior margin was positive and lymphovascular invasion and perineural invasion were also positive. Patient had re-excision of the right tongue/floor of the mouth and right neck dissection done May 24, 2017, and the pathology showed no residual tumor, and eight neck lymph nodes came back negative for metastasis. Given her adverse effects of perineural invasion and lymphovascular invasion, radiation therapy or concurrent chemoradiation was recommended. Patient received chemoradiation with seven weekly doses of cisplatin between October 07, 2017 through November 22, 2017. Patient developed hypomagnesemia with her treatment. I am planning to see her again in three months from now with CBC, chem panel and magnesium level. 2. Hyponatremia, probably due to cisplatin therapy. Patient is taking sodium salts, which she missed for some time now, and her current sodium is 120, and the patient was advised to take it. 3. Hypomagnesemia, corrected. Current magnesium is 1.8. 4. Chemotherapy-induced anemia. Current hemoglobin 10.9. I am planning to continue to monitor in the future. PLAN 1. Continue followup. 2. Patient to return in three months with bradycardia, chem panel and magnesium. 3. Patient to contact us for any new concerns or complaints. [facility]
[2018-01-21] MEDS ORDERED: LOSA50TA74 PO (16:38)
[2018-03-05] MEDS ORDERED: LOSA50TA74 PO (13:34)
== END 2018-03-26 ==
LOC: ONC 15:26
PROVIDERS: ATTEND Internal Medicine Hematology
DX: C04.9 Malignant neoplasm of floor of mouth, unspecified (principal); E87.1 Hypo-osmolality and hyponatremia; E83.42 Hypomagnesemia; D64.81 Anemia due to antineoplastic chemotherapy; Z92.21 Personal history of antineoplastic chemotherapy; R53.1 Weakness; R53.83 Other fatigue; F17.210 Nicotine dependence, cigarettes, uncomplicated; R05 Cough
CPT/HCPCS: 99212

== ENCOUNTER → 2018-02-13 | Outpatient (CLI) | payer SELFPAY ==
[~2018-02-13] MED LIST changes: +LOSA50TA72 PO; -LOSA50TA74 PO
[2018-02-13 16:28] LABS: PLATELET COUNT, AUTOMATED 188 K/uL (150-450)
== END ==
LOC: LAB 16:09
PROVIDERS: ATTEND Emergency Medicine
DX: E87.1 Hypo-osmolality and hyponatremia (principal)
CPT/HCPCS: 36415; 82040; 82247; 82310; 82374; 82435; 82565; 82947; 83540; 83550; 84075; 84132; 84155; 84295; 84450; 84460; 84520; 85025

== ENCOUNTER → 2018-02-19 | Outpatient (CLI) | payer BC | LOC: LAB 09:42 | PROVIDERS: ATTEND Emergency Medicine | DX: E83.51 Hypocalcemia (principal); R41.82 Altered mental status, unspecified; E87.0 Hyperosmolality and hypernatremia | CPT/HCPCS: 36415; 81001; 82306; 82310; 82374; 82435; 82565; 82607; 82947; 83090; 83921; 84132; 84295; 84443; 84520 ==

== ENCOUNTER → 2018-03-04 | Outpatient (CLI) | payer BC | LOC: SPU 09:25 | PROVIDERS: ATTEND Emergency Medicine | DX: E87.1 Hypo-osmolality and hyponatremia (principal) | CPT/HCPCS: 81256; 83935; 84300 ==

== ENCOUNTER 2018-03-18 14:30 | Outpatient (RCR) | payer BC ==
[2018-03-04 09:45] VITALS: BP 146/85
[2018-03-04 09:48] LABS: PLATELET COUNT, AUTOMATED 188 K/uL (150-450)
[~2018-03-18 14:30] MED LIST changes: -LOSA50TA72 PO; +LOSA50TA74 PO
[2018-04-04] MEDS ORDERED: LOSA100T69 PO (14:30)
== END 2018-04-16 09:20 | disposition home or self-care (01) ==
LOC: RAON 14:30
PROVIDERS: ATTEND Radiology Radiation Oncology
DX: Z51.0 Encounter for antineoplastic radiation therapy (principal); C02.1 Malignant neoplasm of border of tongue; F17.210 Nicotine dependence, cigarettes, uncomplicated
CPT/HCPCS: 36415; 82040; 82247; 82310; 82374; 82435; 82565; 82947; 84075; 84132; 84155; 84295; 84443; 84450; 84460; 84520; 85025; 99213

== ENCOUNTER → 2018-04-03 | Outpatient (CLI) | payer BC ==
[~2018-04-03] MED LIST changes: +LOSA100T69 PO
== END ==
LOC: LAB 09:31
PROVIDERS: ATTEND Emergency Medicine
DX: E87.1 Hypo-osmolality and hyponatremia (principal)
CPT/HCPCS: 36415; 82310; 82374; 82435; 82533; 82565; 82947; 84132; 84295; 84520

== ENCOUNTER → 2018-06-25 | Outpatient (CLI) | payer BC ==
[~2018-06-25] MED LIST changes: +AMLO-111 PO; +AMLO-113 PO; +IOPAMIDOL 76% 50 ML INFUS BTL 0 ML ONE; +IOPAMIDOL 76% 50 ML INFUS BTL 100 ML ONE
[2018-06-25 09:20] LABS: PLATELET COUNT, AUTOMATED 200 K/uL (150-450)
--- NOTE | 2018-06-25 12:19 | RADIOLOGY IMAGING REPORT ---
[place] [facility] [place] Arely Mac : 1955 MR: [id number] V: [id number] EXAM DATE: ORDERING PHYSICIAN: JORDAN HOLDEN TECHNOLOGIST: [facility] Patient: Arely Mac : 1955 Visit/Account:[id number] Date of Sevice: 06/25/2018 EXAMINATION: CT neck with IV contrast HISTORY: History of tongue cancer TECHNIQUE: CT was obtained through the neck following IV contrast administration. Sagittal and co tony reformatted images were generated. 75 mL of IV [id number]-[id number] injected. One of the following dose optimization techniques was utilized in the performance of this exam: autom ated exposure control; adjustment of the mA and/or kV according to patient size; or use of iterative reconstruction technique. Specific details can be referenced in the facility's radiology CT exam ope rational policy. COMPARISON: No comparison studies available at the time of dictation. FINDINGS: Parotid/submandibular and thyroid glands: Absent or significantly atrophic right submandibular gland. Subcentimeter dystrophic calcification in the right thyroid lobe. Pharyngeal and retropharyngeal soft tissues: Normal. Oral cavity and fur comber space soft tissues: No apparent tongue mass identified. Larynx/glottis and airway: Normal. Lymph nodes: Normal. Vessels: Bilateral right greater than left carotid bulb and proximal internal carotid artery calcifi ed plaque results in underlying stenosis on the right which is not well characterized on this exam. Visualized orbits / brain: No significant finding. Upper chest: Minimal emphysema. Punctate right upper lobe granulomas. Additional punctate noncalcif ied right upper lobe is favored to be postinflammatory, axial image 53. Bones/sinuses/mastoid air cells: Chronic left fourth rib fracture deformity. No osseous metastatic d isease identified. IMPRESSION: 1. No apparent recurrent disease or neck mass identified. 2. No suspicious appearing or large neck lymph nodes. 3. Absent or atrophic right submandibular gland. Report Dictated By: Daquan Padilla MD at 06/25/2018 12:06 PM Report E-Signed By: Daquan Padilla MD at 06/25/2018 12:15 PM WSN:[id number]
--- NOTE | 2018-06-25 14:22 | RADIOLOGY IMAGING REPORT ---
FACILITY: [facility] [place] PATIENT NAME: Arely Mac : 1955 MR: [id number] V: [id number] EXAM DATE: ORDERING PHYSICIAN: JORDAN HOLDEN TECHNOLOGIST: Location: [facility] [place] Patient: Arely Mac : 1955 Visit/Account:[id number] Date of Sevice: 06/25/2018 CHEST W/O CONTRAST History: History of tongue cancer TECHNIQUE: Contiguous axial images were performed through the chest to the level of the adrenal gla nds. No IV contrast was administered. Coronal and sagittal reformatting was also performed.Dose Lower ing Technique One of the following dose optimization techniques was utilized in the performance of this exam: Autom ated exposure control; adjustment of the mA and/or kV according to the patient's size; or use of an i terative reconstruction technique. Specific details can be referenced in the facility's radiology C T exam operational policy. COMPARISON STUDIES: PET/CT September 20, 2017. Lungs / Pleura: A vague 2 mm noncalcified nodule lateral aspect right upper lobe also seen on image 63 5 mm noncalcified nodule anterior aspect right upper lobe best seen on image 84 Faint 2 mm subpleural noncalcified nodule anterior aspect right upper lobe best seen on image 112. 2 mm nodule anterior aspect of the right middle lobe best seen on image 233. 2 x 3 mm intrafissural nodule in the left major fissure best seen on image 188 There are multiple small calcified granulomas seen throughout the lungs Mild emphysematous changes throughout the lungs Mediastinum/nodes: negative. Heart and vessels: negative. Musculoskeletal / Body wall: Mild spondylotic changes of the visualized thoracic spine with moderat e spondylotic changes the visualized lower cervical spine. There is a mild to moderate compression along the inferior endplate of L1 of indeterminate age howeve r there do appear to be anterior osteophytes suggesting a chronic injury Upper abdomen: Hepatic steatosis IMPRESSION: There multiple calcified nodules seen throughout the lungs likely granulomas There are several noncalcified nodules in the right lung measuring up to 5 mm. These could represent noncalcified granulomas however given the clinical history of tongue cancer short-term interval foll ow-up may be helpful. Mild emphysematous changes throughout the lungs. Mild to moderate compression involving the inferior endplate of L1 of indeterminate age however likel y old given the anterior osteophytes. Hepatic steatosis Report Dictated By: Carrie Brandt MD at 06/25/2018 12:29 PM Report E-Signed By: Carrie Brandt MD at 06/25/2018 2:18 PM WSN:[email or web address]
== END ==
LOC: CT 09:05
PROVIDERS: ATTEND Radiology Radiation Oncology
DX: R91.1 Solitary pulmonary nodule (principal); C02.1 Malignant neoplasm of border of tongue; K11.0 Atrophy of salivary gland
CPT/HCPCS: 36415; 70491; 71250; 84443; 85025; Q9967; 82040; 82247; 82310; 82374; 82435; 82565; 82947; 84075; 84132; 84155; 84295; 84450; 84460; 84520

== ENCOUNTER 2018-07-01 13:00 | Outpatient (RCR) | payer MEDICARE, BC ==
[2018-03-04 09:45] VITALS: BP 146/85
[~2018-07-01 13:00] MED LIST changes: -IOPAMIDOL 76% 50 ML INFUS BTL 0 ML ONE; -IOPAMIDOL 76% 50 ML INFUS BTL 100 ML ONE; -LOSA100T69 PO; +LOSA100T75 PO; -LOSA50TA74 PO; +LOSA50TA80 PO
--- NOTE | 2018-07-02 04:47 | ONCOLOGY FOLLOW UP NOTE ---
EVENT DATE: July 01, 2018 REASON FOR VISIT 1. 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 2. Review of labs and CT scan of the neck and thorax. 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 Tumor measured 1.7 x 1.2 cm. Tumor demonstrated lymphovascular invasion and perineural invasion which was extensive. Lymph node negative. Patient received postoperative external beam radiation therapy with weekly sensitizing cisplatinum, 6040 cGy delivered at 33 fractions, completed 11/21/17. INTERVAL HISTORY Arely was seen back in the oncology clinic for a followup visit today. Overall, she seems to be doing reasonably well and denies any difficulty with dry mouth or altered taste. No pain. She does have a history of significant alcohol use and has notably impaired short-term memory. This is not new. Patient had a CT scan of the neck and thorax, which I reviewed on the computer monitor with her today, and fortunately there are no signs of cancer recurrence in the lymph nodes or the lungs. There are multiple lung nodules present, which most likely are granulomas, although the radiologist recommended continued monitoring, particularly with her smoking history. Patient continues to smoke three cigarettes per day. She states she drinks beer. Lab work reveals chronic hyponatremia, probably related to beer. Her TSH is normal. Her CBC and CMP are essentially normal as well. Patient states she forgot her last appointment with Dr. River, so she will see him on the of this month. PAST MEDICAL HISTORY 1. Hypertension. 2. Hypercholesterolemia. PAST SURGICAL HISTORY 1. Appendectomy. 2. Cholecystectomy. 3. Hip fracture surgery. 4. Laryngoscopy, right neck dissection, re-excision of the tongue at the floor of the mouth. 5. Partial excision of the tongue and excision biopsy of the neck deep. 6. Right neck dissection, re-excision of the tongue and the floor of the mouth. 7. Tubal ligation. 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 She has over 45 years of tobacco abuse. Currently she smokes about two to three cigarettes a day. She drinks about a six pack per day. Denies any abuse of illicit drugs. FAMILY HISTORY Negative for cancer or blood diseases. CURRENT MEDICATIONS 1. Triamcinolone acetonide 0.5% cream topically twice daily. 2. Simvastatin 40 mg at bedtime. 3. Losartan potassium 50 mg tablet daily. 4. Magnesium amino acid chelate 27 mg tablet daily. 5. Folic acid 0.4 mg daily. 6. Calcium carbonate/vitamin D3, 500 mg of calcium one tablet daily. 7. Multivitamin one tablet daily. 8. Ibuprofen 200 mg two tablets as needed orally. ALLERGIES No known drug allergies. REVIEW OF SYSTEMS Notable for impaired short-term and long-term memory. Patient remembers no details of her original cancer diagnosis or providers. She does have fatigue. She does have occasional urinary urgency related to fluid intake. Respiratory status is stable. PHYSICAL EXAMINATION VITAL SIGNS: Weight 153, pulse 109, BP 152/82, O2 saturation 92% on room air. GENERAL: Alert and oriented to today. HEENT: Notable for postsurgical changes from the previous resection of the tongue on the right side with some mild restriction. No signs of any exophytic mass. No signs of thrush. Reasonable moisture today. Patient has upper dentures in place. NECK: Palpation reveals no lymphadenopathy. LUNGS: Expiratory rhonchi bilaterally. Otherwise clear. HEART: Heart sounds regular. ABDOMEN: Soft. No gross organomegaly, mass, or tenderness. IMPRESSION Squamous cell carcinoma of the right tongue, treated with surgery, followed by radiation therapy and concurrent cisplatinum-based chemotherapy. Patient is 14 months remote from her original resection, 1.7 x 1.2 cm malignancy. She is overall doing quite well as far as the therapeutic response to the radiation and chemotherapy, with no signs of metastatic disease or recurrent disease from radiographic or clinical exam. Patient does have a history of ongoing EtOH use and certainly has impaired short-term memory. She will need reminders for her appointments. She will follow up with Dr. River later this month, on the . I will see her again in six months with updated CT scan of the neck and thorax, CBC, CMP, and TSH. See sooner bryson [email or web address]
[2018-07-10] MEDS ORDERED: AMLO-113 PO (16:02)
[2018-07-10] MEDS ORDERED: LOSA100T75 PO (16:02)
== END 2018-07-18 15:37 | disposition home or self-care (01) ==
LOC: RAON 13:00
PROVIDERS: ATTEND Radiology Radiation Oncology
DX: Z51.0 Encounter for antineoplastic radiation therapy (principal); C02.1 Malignant neoplasm of border of tongue; F17.210 Nicotine dependence, cigarettes, uncomplicated; Z92.21 Personal history of antineoplastic chemotherapy; Z92.3 Personal history of irradiation; R41.3 Other amnesia
CPT/HCPCS: 99212

== ENCOUNTER 2018-12-29 14:28 | Outpatient (RCR) | payer MEDICARE, BC ==
[2018-03-04 09:45] VITALS: BP 146/85
[~2018-12-29 14:28] MED LIST changes: -AMLO-111 PO; -AMLO-113 PO; +AMLO-125 PO; +AMLO-127 PO
== END 2018-12-30 12:08 | disposition home or self-care (01) ==
LOC: RAON 14:28
PROVIDERS: ATTEND Radiology Radiation Oncology
DX: Z02.9 Encounter for administrative examinations, unspecified (principal)

== ENCOUNTER 2019-01-13 09:52 | Emergency (ER) | payer BC ==
--- NOTE | 2019-01-13 09:54 | ER Report ---
History and Physical Time Seen By MD: 09:52 HPI/ROS CHIEF COMPLAINT: Transient altered mental status HISTORY OF PRESENT ILLNESS: Patient is a 63-year-old female here with complaints of transient altered mental status per patient and family. Patient reportedly has had episodes of confusion, not recalling some current events. Patient does have a history of polycythemia, hyponatremia, pancreatitis, alcohol abuse. Patient reportedly drinks 7-8 beers daily per family report. Patient currently does not know why she was brought into the emergency and reports that she feels well today. Patient does report having a fall approximately week ago. Symptoms have been present for approximately 2-3 weeks per family report. Patient is afebrile, hemodynamically stable, alert and oriented at time of evaluation. REVIEW OF SYSTEMS: Constitutional: No fever, no chills. Eyes: No discharge. ENT: No sore throat. Cardiovascular: No chest pain, no palpitations. Respiratory: No cough, no shortness of breath. Gastrointestinal: No abdominal pain, no vomiting. Genitourinary: No hematuria. Musculoskeletal: No back pain. Skin: No rashes. Neurological: No headache, + transient AMS per family Allergies: Coded Allergies: No Known Drug Allergies (Unverified , 10/12/14) Home Meds Active Scripts Sodium Chloride (SODIUM CHLORIDE) 1 Gm Tab, 1 GM PO QDAY for 14 Days, #14 TAB Prov:AGUSTO DUKE DO 01/13/19 Cephalexin Monohydrate (CEPHALEXIN) 500 Mg Cap, 500 MG PO BID for 7 Days, #14 CAP 0 Refills Prov:AGUSTO DUKE DO 01/13/19 Amlodipine Besylate (AMLODIPINE BESYLATE) 10 Mg Tablet, 1 TAB PO QDAY, #90 TAB 3 Refills Prov:MARTÍN GRAY MD 07/10/18 Losartan Potassium (LOSARTAN POTASSIUM) 100 Mg Tablet, 100 MG PO QDAY, #90 TAB 3 Refills Prov:MARTÍN GRAY MD 07/10/18 Hx Smoking: Yes Smoking Status: Current: Every Day Smoker Hx Substance Use Disorder: No Hx Alcohol Use: Yes (OCC) Constitutional Vital Sign - Last 24 Hours 01/13/19 01/13/19 01/13/19 01/13/19 09:56 09:56 10:01 10:34 Temp 98.2 Pulse 88 101 85 88 Resp 16 B/P (MAP) 199/102 (134) 199/102 178/102 (127) 167/84 (111) Pulse Ox 94 O2 Delivery Room Air Physical Exam General Appearance: The patient is alert, has no immediate need for airway protection and no signs of toxicity. AAO, no acute distress Eyes: Pupils equal and round no pallor or injection. ENT, Mouth: Mucous membranes are moist. Respiratory: There are no retractions, lungs are clear to auscultation. Cardiovascular: Regular rate and rhythm. [ ] Gastrointestinal: Abdomen is soft and non tender, no masses, bowel sounds normal. Neurological: No focal neuro deficits, reports of intermittent confusion Skin: Warm and dry, no rashes. Musculoskeletal: Neck is supple non tender. Extremities are nontender, nonswollen and have full range of motion. DIFFERENTIAL DIAGNOSIS: After history and physical exam differential diagnosis was considered for altered mental status including but not limited to hypoglycemia, infectious process, electrolyte abnormality, head injury and intoxicants. Medical Decision Making Data Points Result Diagram: 01/13/19 1001 01/13/19 1001 Laboratory Hematology Test 01/13/19 00:00 01/13/19 10:01 01/13/19 10:15 01/13/19 10:16 Prothrombin Time 14.9 seconds (12.0-14.4) Prothromb Time International Ratio 1.16 Activated Partial Thromboplast Time 44 seconds (23-35) Red Blood Count 3.89 M/uL (4.17-5.56) Mean Corpuscular Volume 101.4 fL (80.0-96.0) Mean Corpuscular Hemoglobin 36.5 pg (26.0-33.0) Mean Corpuscular Hemoglobin Concent 36.0 g/dL (32.0-36.0) Red Cell Distribution Width 12.9 % (11.5-14.5) Mean Platelet Volume 7.2 fL (7.2-11.1) Neutrophils (%) (Auto) 67.9 % (39.4-72.5) Lymphocytes (%) (Auto) 18.8 % (17.6-49.6) Monocytes (%) (Auto) 11.6 % (4.1-12.4) Eosinophils (%) (Auto) 1.0 % (0.4-6.7) Basophils (%) (Auto) 0.7 % (0.3-1.4) Nucleated RBC Relative Count (auto) 0.1 /100WBC Neutrophils # (Auto) 4.3 K/uL (2.0-7.4) Lymphocytes # (Auto) 1.2 K/uL (1.3-3.6) Monocytes # (Auto) 0.7 K/uL (0.3-1.0) Eosinophils # (Auto) 0.1 K/uL (0.0-0.5) Basophils # (Auto) 0.0 K/uL (0.0-0.1) Nucleated RBC Absolute Count (auto) 0.00 K/uL Sodium Level 119 mmol/L (137-145) Potassium Level 3.2 mmol/L (3.5-5.0) Chloride Level 76 mmol/L (98-107) Carbon Dioxide Level 25 mmol/L (22-31) Blood Urea Nitrogen 14 mg/dl (7-18) Creatinine 1.30 mg/dl (0.52-1.04) Glomerular Filtration Rate Calc 41.1 Random Glucose 134 mg/dl (75-110) Calcium Level 9.0 mg/dl (8.4-10.2) Total Bilirubin 1.7 mg/dl (0.2-1.3) Aspartate Amino Transf (AST/SGOT) 96 U/L (0-35) Alanine Aminotransferase (ALT/SGPT) 63 U/L (0-56) Alkaline Phosphatase 170 U/L (0-126) Ammonia 12 UMOL/L (9-33) Troponin I < 0.012 ng/ml Total Protein 7.5 g/dl (6.3-8.2) Albumin 4.1 g/dl (3.5-5.0) Lipase 86 U/L (23-300) Serum Alcohol 51 mg/dl Urine Opiates Screen Negative Urine Barbiturates Screen Negative Ur Tricyclic Antidepressants Screen Negative Urine Phencyclidine Screen Negative Urine Amphetamines Screen Negative Urine Benzodiazepines Screen Negative Urine Cocaine Screen Negative Urine Cannabinoids Screen Negative Urine Color Yellow Urine Clarity Clear Urine pH 6.0 pH (4.8-9.5) Urine Specific [place] 1.002 Urine Protein Negative mg/dL (NEGATIVE) Urine Glucose (UA) Negative mg/dL (NEGATIVE) Urine Ketones Negative mg/dL (NEGATIVE) Urine Blood Negative (NEGATIVE) Urine Nitrite Positive (NEGATIVE) Urine Bilirubin Negative (NEGATIVE) Urine Urobilinogen Negative mg/dL (0.2-1.9) Urine Leukocyte Esterase Small (NEGATIVE) Urine RBC <1 /HPF (0-2/HPF) Urine WBC 9 /HPF (0-5/HPF) Urine Squamous Epithelial Cells Few /LPF (</=FEW) Urine Bacteria Many /HPF (NONE-FEW) Urine Mucus None /HPF (NONE-FEW) Test 01/13/19 10:19 Blood Gas Patient Temperature 98.2 DEGREES Venous Blood pH 7.37 (7.31-7.41) Venous Blood Partial Pressure CO2 43 mmHg Venous Blood Partial Pressure O2 43 mmHg Venous Blood HCO3 25 mmol/L Venous Blood Oxygen Saturation 77 % Venous Blood Base Excess 0 mmol/L Carboxyhemoglobin 1.1 % (< 5.0) Oxygen Liters/Minute 0 Chemistry Test 01/13/19 00:00 01/13/19 10:01 01/13/19 10:15 01/13/19 10:16 Prothrombin Time 14.9 seconds (12.0-14.4) Prothromb Time International Ratio 1.16 Activated Partial Thromboplast Time 44 seconds (23-35) White Blood Count 6.3 k/uL (4.5-11.0) Red Blood Count 3.89 M/uL (4.17-5.56) Hemoglobin 14.2 g/dL (12.0-16.0) Hematocrit 39.5 % (34.0-47.0) Mean Corpuscular Volume 101.4 fL (80.0-96.0) Mean Corpuscular Hemoglobin 36.5 pg (26.0-33.0) Mean Corpuscular Hemoglobin Concent 36.0 g/dL (32.0-36.0) Red Cell Distribution Width 12.9 % (11.5-14.5) Platelet Count 181 K/uL (150-450) Mean Platelet Volume 7.2 fL (7.2-11.1) Neutrophils (%) (Auto) 67.9 % (39.4-72.5) Lymphocytes (%) (Auto) 18.8 % (17.6-49.6) Monocytes (%) (Auto) 11.6 % (4.1-12.4) Eosinophils (%) (Auto) 1.0 % (0.4-6.7) Basophils (%) (Auto) 0.7 % (0.3-1.4) Nucleated RBC Relative Count (auto) 0.1 /100WBC Neutrophils # (Auto) 4.3 K/uL (2.0-7.4) Lymphocytes # (Auto) 1.2 K/uL (1.3-3.6) Monocytes # (Auto) 0.7 K/uL (0.3-1.0) Eosinophils # (Auto) 0.1 K/uL (0.0-0.5) Basophils # (Auto) 0.0 K/uL (0.0-0.1) Nucleated RBC Absolute Count (auto) 0.00 K/uL Glomerular Filtration Rate Calc 41.1 Calcium Level 9.0 mg/dl (8.4-10.2) Total Bilirubin 1.7 mg/dl (0.2-1.3) Aspartate Amino Transf (AST/SGOT) 96 U/L (0-35) Alanine Aminotransferase (ALT/SGPT) 63 U/L (0-56) Alkaline Phosphatase 170 U/L (0-126) Ammonia 12 UMOL/L (9-33) Troponin I < 0.012 ng/ml Total Protein 7.5 g/dl (6.3-8.2) Albumin 4.1 g/dl (3.5-5.0) Lipase 86 U/L (23-300) Serum Alcohol 51 mg/dl Urine Opiates Screen Negative Urine Barbiturates Screen Negative Ur Tricyclic Antidepressants Screen Negative Urine Phencyclidine Screen Negative Urine Amphetamines Screen Negative Urine Benzodiazepines Screen Negative Urine Cocaine Screen Negative Urine Cannabinoids Screen Negative Urine Color Yellow Urine Clarity Clear Urine pH 6.0 pH (4.8-9.5) Urine Specific [place] 1.002 Urine Protein Negative mg/dL (NEGATIVE) Urine Glucose (UA) Negative mg/dL (NEGATIVE) Urine Ketones Negative mg/dL (NEGATIVE) Urine Blood Negative (NEGATIVE) Urine Nitrite Positive (NEGATIVE) Urine Bilirubin Negative (NEGATIVE) Urine Urobilinogen Negative mg/dL (0.2-1.9) Urine Leukocyte Esterase Small (NEGATIVE) Urine RBC <1 /HPF (0-2/HPF) Urine WBC 9 /HPF (0-5/HPF) Urine Squamous Epithelial Cells Few /LPF (</=FEW) Urine Bacteria Many /HPF (NONE-FEW) Urine Mucus None /HPF (NONE-FEW) Test 01/13/19 10:19 Blood Gas Patient Temperature 98.2 DEGREES Venous Blood pH 7.37 (7.31-7.41) Venous Blood Partial Pressure CO2 43 mmHg Venous Blood Partial Pressure O2 43 mmHg Venous Blood HCO3 25 mmol/L Venous Blood Oxygen Saturation 77 % Venous Blood Base Excess 0 mmol/L Carboxyhemoglobin 1.1 % (< 5.0) Oxygen Liters/Minute 0 Coagulation Test 01/13/19 00:00 Prothrombin Time 14.9 seconds Prothromb Time International Ratio 1.16 Activated Partial Thromboplast Time 44 seconds Toxicology Test 01/13/19 10:01 01/13/19 10:15 Serum Alcohol 51 mg/dl Urine Opiates Screen Negative Urine Barbiturates Screen Negative Ur Tricyclic Antidepressants Screen Negative Urine Phencyclidine Screen Negative Urine Amphetamines Screen Negative Urine Benzodiazepines Screen Negative Urine Cocaine Screen Negative Urine Cannabinoids Screen Negative Urinalysis Test 01/13/19 10:16 Urine Color Yellow Urine Clarity Clear Urine pH 6.0 pH (4.8-9.5) Urine Specific [place] 1.002 Urine Protein Negative mg/dL (NEGATIVE) Urine Glucose (UA) Negative mg/dL (NEGATIVE) Urine Ketones Negative mg/dL (NEGATIVE) Urine Blood Negative (NEGATIVE) Urine Nitrite Positive (NEGATIVE) Urine Bilirubin Negative (NEGATIVE) Urine Urobilinogen Negative mg/dL (0.2-1.9) Urine Leukocyte Esterase Small (NEGATIVE) Urine RBC <1 /HPF (0-2/HPF) Urine WBC 9 /HPF (0-5/HPF) Urine Squamous Epithelial Cells Few /LPF (</=FEW) Urine Bacteria Many /HPF (NONE-FEW) Urine Mucus None /HPF (NONE-FEW) EKG/Imaging Imaging PATIENT NAME: Arely Mac : 1955 MR: [id number] V: [id number] EXAM DATE: ORDERING PHYSICIAN: AGUSTO DUKE TECHNOLOGIST: Location: [facility] - [place] Patient: Arely Mac : 1955 Visit/Account:[id number] Date of Sevice: 01/13/2019 EXAMINATION: CT head without IV contrast HISTORY: Transient confusion. Fell and hit head one week ago. COMPARISON: CT neck from 06/25/2018. TECHNIQUE: Contiguous axial images were obtained from the skull base to the vertex without intravenous contrast. Sagittal and coronal reformatted images are also submitted. One of the following dose optimization techniques was utilized in the performance of this exam: Automated exposure control; adjustment of the mA and/or kV according to the patient's size; or use of an iterative reconstruction technique. Specific details can be referenced in the facility's radiology CT exam operational policy. FINDINGS: Brain volume: Mild generalized atrophy with associated concordant prominence of the ventricular system. Ventricles: Normal. Acute ischemic changes: None. Hemorrhage: No acute intracranial hemorrhage. Masses/edema: None. Noguera-white: Focal encephalomalacia and gliosis with cortical thinning in the bilateral inferior temporal lobes. White matter: Patchy hypodensities in the deep white matter bilaterally. Vessels: Calcified plaque of both carotid siphons. Extra-axial: Negative. Calvarium/scalp: No acute fracture. Skull base/visualized face: Negative. Visualized sinuses/orbits: Negative. IMPRESSION: 1. No acute fracture, hemorrhage or intracranial mass lesion. No CT evidence of acute infarct. 2. 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 3. Moderate nonspecific white matter disease is suspicious for chronic small vessel ischemia. ED Course/Re-evaluation ED Course Patient is a 63-year-old female here with complaints of intermittent altered mental status per family report in the setting of current alcohol use, prior history of hyponatremia, pancreatitis, recent fall. Basic labs, CT imaging of the head were completed. Patient was given a liter of normal saline bolus. Patient was found to have a urinalysis consistent with urinary tract infection, culture sent, patient was given ceftriaxone [address] imaging of the head was unremarkable for an acute process. Patient's sodium was compared to prior sodium levels on file, last of which was in June and was 124 compared to today's 119 which is not a large discrepancy. Unclear whether or not the patient has SIADH versus a beer tiny given her history of alcohol abuse. Patient will be started on 1 g by mouth tablet of sodium daily with close PCP follow-up to trend electrolyte levels. Also the patient's creatinine looks mildly elevated compared to prior which also need to be followed up with after patient orally hydrates at home. Patient was updated regarding these findings. Prescription provided for Keflex 7 d course, sodium repletion 1 g daily. I did discuss the patient briefly with Dr. Morris who is the hospitalist on-call in order to formulate a plan for outpatient repletion of sodium and PCP follow-up. Patient was hemodynamically stable throughout course and at time of discharge, alert and oriented with no focal neurological findings or history of seizures. Close PCP follow-up recommended. Decision to Disposition Date: Jan 13, 2019 Decision to Disposition Time: 11:38 Depart Departure Latest Vital Signs Vital Signs Date Time Temp Pulse Resp B/P (MAP) Pulse Ox O2 Delivery O2 Flow Rate FiO2 01/13/19 10:34 88 167/84 (111) 01/13/19 09:56 98.2 16 94 Room Air Impression: Primary Impression: Hyponatremia Additional Impression: Urinary tract infection Condition: Improved Disposition: HOME OR SELF-CARE Referrals: MARTÍN GRAY MD (PCP) New Scripts Sodium Chloride (SODIUM CHLORIDE) 1 Gm Tab 1 GM PO QDAY for 14 Days, #14 TAB Prov: AGUSTO DUKE DO 01/13/19 Cephalexin Monohydrate (CEPHALEXIN) 500 Mg Cap 500 MG PO BID for 7 Days, #14 CAP 0 Refills Prov: AGUSTO DUKE DO 01/13/19 Patient Instructions: Hyponatremia (ED), Urinary Tract Infection in Women (ED) Additional Instructions: Please drink plenty of water. Please take sodium tablet 1 g daily as well as Keflex one tablet twice daily for treatment of hyponatremia or low sodium and urinary tract infection respectively. Please follow-up with her family doctor in the next 2-4 days for repeat evaluation and repeat lab trending. Please return promptly if you develop chest pain, shortness of breath, altered mental status, fevers or chills, inability keep down food or fluids. Problem Qualifiers AGUSTO DUKE DO Jan 13, 2019 09:54
[2019-01-13] MEDS ORDERED: NS(*) 0.9% 1000 ML BAG 1,000 ML IV ONE (10:09)
[2019-01-13 10:22] LABS: PLATELET COUNT, AUTOMATED 181 K/uL (150-450)
[2019-01-13 10:28] LABS: INR 1.16
[2019-01-13] MEDS ORDERED: cefTRIAXone 1 GM VIAL IVP ONE (10:35)
--- NOTE | 2019-01-13 10:53 | RADIOLOGY IMAGING REPORT ---
FACILITY: [facility] PATIENT NAME: Arely Mac : 1955 MR: [id number] V: [id number] EXAM DATE: ORDERING PHYSICIAN: AGUSTO DUKE TECHNOLOGIST: Location: [facility] - [place] Patient: Arely Mac : 1955 Visit/Account:[id number] Date of Sevice: 01/13/2019 EXAMINATION: CT head without IV contrast HISTORY: Transient confusion. Fell and hit head one week ago. COMPARISON: CT neck from 06/25/2018. TECHNIQUE: Contiguous axial images were obtained from the skull base to the vertex without intraven ous contrast. Sagittal and coronal reformatted images are also submitted. One of the following dose optimization techniques was utilized in the performance of this exam: Autom ated exposure control; adjustment of the mA and/or kV according to the patient's size; or use of an i terative reconstruction technique. Specific details can be referenced in the facility's radiology C T exam operational policy. FINDINGS: Brain volume: Mild generalized atrophy with associated concordant prominence of the ventricular syst em. Ventricles: Normal. Acute ischemic changes: None. Hemorrhage: No acute intracranial hemorrhage. Masses/edema: None. Noguera-white: Focal encephalomalacia and gliosis with cortical thinning in the bilateral inferior tempo ral lobes. White matter: Patchy hypodensities in the deep white matter bilaterally. Vessels: Calcified plaque of both carotid siphons. Extra-axial: Negative. Calvarium/scalp: No acute fracture. Skull base/visualized face: Negative. Visualized sinuses/orbits: Negative. IMPRESSION: 1. No acute fracture, hemorrhage or intracranial mass lesion. No CT evidence of acute infarct. 2. 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 3. Moderate nonspecific white matter disease is suspicious for chronic small vessel ischemia. Report Dictated By: Mitali Botello MD at 01/13/2019 10:42 AM Report E-Signed By: Mitali Boetllo MD at 01/13/2019 10:46 AM WSN:[id number]
[2019-01-13] MEDS ORDERED: SODCTAB PO (11:44)
[2019-01-13] MEDS ORDERED: CEPH500C24 PO (11:44)
[2019-01-13 11:59] VITALS: BP 124/72
== END 2019-01-13 12:04 | disposition home or self-care (01) ==
LOC: ER 09:55
DX: E87.1 Hypo-osmolality and hyponatremia (principal); N39.0 Urinary tract infection, site not specified; D75.1 Secondary polycythemia
CPT/HCPCS: 70450; 80305; 80320; 81001; 82140; 82375; 82803; 83690; 84443; 84484; 85025; 85610; 85730; 87088; 96361; 96374; 99284; J0696; J7030; 82040; 82247; 82310; 82374; 82435; 82565; 82947; 84075; 84132; 84155; 84295; 84450; 84460; 84520

== ENCOUNTER → 2019-01-15 | Outpatient (CLI) | payer MEDICARE ==
[~2019-01-15] MED LIST changes: +SODCTAB PO
[2019-01-15 13:29] LABS: PLATELET COUNT, AUTOMATED 178 K/uL (150-450)
== END ==
LOC: LAB 13:02
PROVIDERS: ATTEND Emergency Medicine
DX: E87.1 Hypo-osmolality and hyponatremia (principal); N39.0 Urinary tract infection, site not specified; F10.20 Alcohol dependence, uncomplicated
CPT/HCPCS: 36415; 82040; 82247; 82310; 82374; 82435; 82565; 82947; 84075; 84132; 84155; 84295; 84450; 84460; 84520; 85025

== ENCOUNTER 2019-01-17 20:13 | Inpatient (IN) | payer MEDICARE ==
[~2019-01-17] VITALS: Ht 170.2 cm; Wt 70.3 kg
[~2019-01-17 20:13] MED LIST changes: -CALC-852 PO; -FOLI-68 PO; -MAGN400T36 PO; -MULT-27 PO; -THIA100T6 PO
--- NOTE | 2019-01-17 20:16 | ER Report ---
History and Physical Time Seen By MD: 20:14 HPI/ROS CHIEF COMPLAINT: altered mental status HISTORY OF PRESENT ILLNESS: This is a 63 year old female. She has been getting progressively more week over the last few weeks. Today could not get up out of the chair and acting confused. She was incontinent of stool and urine. EMS responded to the home and had to have two of the medical editor get her out of the chair and onto the gurney. She can respond to some questions. Vital signs were stable. She is not able to answer most questions at this time. Is alert to self and place, but not to time or surroundings/events. Daughter reports she has a long history of alcoholsim, drinks about 12 beers daily. Unsure is she has been taking her medications. Recently prescribed antibiotics for urinary tract infection. Also with chronic hyponatremia problems. Has also had several falls at home the last few days. REVIEW OF SYSTEMS: Unable to obtain. Allergies: Coded Allergies: No Known Drug Allergies (Unverified , 10/12/14) Home Meds Active Scripts Sodium Chloride (SODIUM CHLORIDE) 1 Gm Tab, 1 GM PO QDAY for 14 Days, #14 TAB Prov:AGUSTO DUKE DO 01/13/19 Cephalexin Monohydrate (CEPHALEXIN) 500 Mg Cap, 500 MG PO BID for 7 Days, #14 CAP 0 Refills Prov:AGUSTO DUKE DO 01/13/19 Amlodipine Besylate (AMLODIPINE BESYLATE) 10 Mg Tablet, 1 TAB PO QDAY, #90 TAB 3 Refills Prov:MARTÍN GRAY MD 07/10/18 Losartan Potassium (LOSARTAN POTASSIUM) 100 Mg Tablet, 100 MG PO QDAY, #90 TAB 3 Refills Prov:MARTÍN GRAY MD 07/10/18 Reported Medications Magnesium Oxide (MAGNESIUM OXIDE) 400 Mg Tablet, 400 MG PO BID 01/17/19 Mu-Vits-Min Th/Lycopene/Lutein (CENTRUM SILVER TABLET) 1 Each Tablet, 1 EACH PO DAILY 01/17/19 Calcium Carbonate/Vitamin D3 (CALCIUM + VITAMIN D TABLET) 1 Each Tablet, 1 EACH PO DAILY 01/17/19 Thiamine HCl (B-1) 100 Mg Tablet, 1 TAB PO DAILY 01/17/19 Folic Acid (FOLIC ACID) 1 Mg Tablet, 1 MG PO QDAY, TAB 01/17/19 Reviewed Nurses Notes: Yes Hx Smoking: Yes Smoking Status: Current: Every Day Smoker Hx Substance Use Disorder: No Hx Alcohol Use: Yes (OCC) Constitutional Vital Sign - Last 24 Hours 01/17/19 01/17/19 01/17/19 01/17/19 20:13 20:14 20:14 20:30 Temp 98.7 Pulse ??? 95 Resp 24 B/P (MAP) 156/70 (98) 156/70 163/96 (118) Pulse Ox 87 90 01/17/19 01/17/19 01/17/19 01/17/19 20:38 20:43 21:00 21:13 Pulse 92 91 Resp 13 B/P (MAP) 192/94 (126) 163/68 (99) Pulse Ox 88 89 01/17/19 01/17/19 21:20 21:25 Pulse 92 Resp 15 B/P (MAP) 155/79 (104) Pulse Ox 91 Intake and Output 01/17/19 01/17/19 01/18/19 15:01 23:01 07:01 Output Total 250 ml Balance -250 ml Physical Exam General Appearance: The patient is alert, but confused, requiring continued re-orienting. Disheveled, incontinent. Eyes: Pupils are equal, round. Reactive to light. No pallor, injection or icterus. Extraocular movements are intact. ENT: Mucous membranes are moist. Normal oral mucosa. Posterior oropharynx is normal. Normal tympanic membranes and canals. Neck: Supple and non tender. Respiratory: Lungs are clear to auscultation. Cardiovascular: Regular rate and rhythm. No murmurs, gallops or rubs. Has some bilateral leg edema, mild. Gastrointestinal: Abdomen is soft with no apparent tenderness. Normal active bowel sounds. Neurological: Confused, answers Rose to place, date, president, name. At later time can answer somewhat better. Moving all extremities, but generalized weakness. Skin: Warm and dry. Musculoskeletal: Extremities are nontender. No tenderness in palpation of the cervical, thoracic and lumbar spine. DIFFERENTIAL DIAGNOSIS: After history and physical exam, differential diagnosis was considered for patient with generalized weakness, likely going to be due to hyponatremia given her history but would worry about sepsis, other electrolyte abnormality, other infectious. Medical Decision Making Data Points Result Diagram: 01/17/19200201/17/19 0474 Laboratory Hematology Test 01/17/19 20:03 01/17/19 20:50 Red Blood Count 3.44 M/uL (4.17-5.56) Mean Corpuscular Volume 98.4 fL (80.0-96.0) Mean Corpuscular Hemoglobin 36.3 pg (26.0-33.0) Mean Corpuscular Hemoglobin Concent 36.8 g/dL (32.0-36.0) Red Cell Distribution Width 13.0 % (11.5-14.5) Mean Platelet Volume 7.9 fL (7.2-11.1) Neutrophils (%) (Auto) 73.0 % (39.4-72.5) Lymphocytes (%) (Auto) 15.7 % (17.6-49.6) Monocytes (%) (Auto) 10.6 % (4.1-12.4) Eosinophils (%) (Auto) 0.2 % (0.4-6.7) Basophils (%) (Auto) 0.5 % (0.3-1.4) Nucleated RBC Relative Count (auto) 0.1 /100WBC Neutrophils # (Auto) 5.1 K/uL (2.0-7.4) Lymphocytes # (Auto) 1.1 K/uL (1.3-3.6) Monocytes # (Auto) 0.7 K/uL (0.3-1.0) Eosinophils # (Auto) 0.0 K/uL (0.0-0.5) Basophils # (Auto) 0.0 K/uL (0.0-0.1) Nucleated RBC Absolute Count (auto) 0.01 K/uL Lactate 1.1 mmol/L (0.7-2.1) Magnesium Level 1.2 mg/dl (1.7-2.2) Total Bilirubin 2.5 mg/dl (0.2-1.3) Aspartate Amino Transf (AST/SGOT) 225 U/L (0-35) Alanine Aminotransferase (ALT/SGPT) 91 U/L (0-56) Alkaline Phosphatase 160 U/L (0-126) Troponin I < 0.012 ng/ml Total Protein 6.5 g/dl (6.3-8.2) Albumin 3.6 g/dl (3.5-5.0) Serum Alcohol < 10 mg/dl Urine Color Yellow Urine Clarity Clear Urine pH 7.0 pH (4.8-9.5) Urine Specific [place] 1.002 Urine Protein Negative mg/dL (NEGATIVE) Urine Glucose (UA) Negative mg/dL (NEGATIVE) Urine Ketones Trace mg/dL (NEGATIVE) Urine Blood Small (NEGATIVE) Urine Nitrite Negative (NEGATIVE) Urine Bilirubin Negative (NEGATIVE) Urine Urobilinogen 2.0 mg/dL (0.2-1.9) Urine Leukocyte Esterase Negative (NEGATIVE) Urine RBC None /HPF (0-2/HPF) Urine WBC None /HPF (0-5/HPF) Urine Squamous Epithelial Cells Few /LPF (NONE-FEW) Urine Bacteria Negative /HPF (NONE-FEW) Urine Mucus None /HPF (NONE-FEW) Chemistry Test 01/17/19 20:03 01/17/19 20:50 White Blood Count 7.0 k/uL (4.5-11.0) Red Blood Count 3.44 M/uL (4.17-5.56) Hemoglobin 12.5 g/dL (12.0-16.0) Hematocrit 33.8 % (34.0-47.0) Mean Corpuscular Volume 98.4 fL (80.0-96.0) Mean Corpuscular Hemoglobin 36.3 pg (26.0-33.0) Mean Corpuscular Hemoglobin Concent 36.8 g/dL (32.0-36.0) Red Cell Distribution Width 13.0 % (11.5-14.5) Platelet Count 161 K/uL (150-450) Mean Platelet Volume 7.9 fL (7.2-11.1) Neutrophils (%) (Auto) 73.0 % (39.4-72.5) Lymphocytes (%) (Auto) 15.7 % (17.6-49.6) Monocytes (%) (Auto) 10.6 % (4.1-12.4) Eosinophils (%) (Auto) 0.2 % (0.4-6.7) Basophils (%) (Auto) 0.5 % (0.3-1.4) Nucleated RBC Relative Count (auto) 0.1 /100WBC Neutrophils # (Auto) 5.1 K/uL (2.0-7.4) Lymphocytes # (Auto) 1.1 K/uL (1.3-3.6) Monocytes # (Auto) 0.7 K/uL (0.3-1.0) Eosinophils # (Auto) 0.0 K/uL (0.0-0.5) Basophils # (Auto) 0.0 K/uL (0.0-0.1) Nucleated RBC Absolute Count (auto) 0.01 K/uL Lactate 1.1 mmol/L (0.7-2.1) Magnesium Level 1.2 mg/dl (1.7-2.2) Total Bilirubin 2.5 mg/dl (0.2-1.3) Aspartate Amino Transf (AST/SGOT) 225 U/L (0-35) Alanine Aminotransferase (ALT/SGPT) 91 U/L (0-56) Alkaline Phosphatase 160 U/L (0-126) Troponin I < 0.012 ng/ml Total Protein 6.5 g/dl (6.3-8.2) Albumin 3.6 g/dl (3.5-5.0) Serum Alcohol < 10 mg/dl Urine Color Yellow Urine Clarity Clear Urine pH 7.0 pH (4.8-9.5) Urine Specific [place] 1.002 Urine Protein Negative mg/dL (NEGATIVE) Urine Glucose (UA) Negative mg/dL (NEGATIVE) Urine Ketones Trace mg/dL (NEGATIVE) Urine Blood Small (NEGATIVE) Urine Nitrite Negative (NEGATIVE) Urine Bilirubin Negative (NEGATIVE) Urine Urobilinogen 2.0 mg/dL (0.2-1.9) Urine Leukocyte Esterase Negative (NEGATIVE) Urine RBC None /HPF (0-2/HPF) Urine WBC None /HPF (0-5/HPF) Urine Squamous Epithelial Cells Few /LPF (NONE-FEW) Urine Bacteria Negative /HPF (NONE-FEW) Urine Mucus None /HPF (NONE-FEW) Toxicology Test 01/17/19 20:03 Serum Alcohol < 10 mg/dl Urinalysis Test 01/17/19 20:50 Urine Color Yellow Urine Clarity Clear Urine pH 7.0 pH (4.8-9.5) Urine Specific [place] 1.002 Urine Protein Negative mg/dL (NEGATIVE) Urine Glucose (UA) Negative mg/dL (NEGATIVE) Urine Ketones Trace mg/dL (NEGATIVE) Urine Blood Small (NEGATIVE) Urine Nitrite Negative (NEGATIVE) Urine Bilirubin Negative (NEGATIVE) Urine Urobilinogen 2.0 mg/dL (0.2-1.9) Urine Leukocyte Esterase Negative (NEGATIVE) Urine RBC None /HPF (0-2/HPF) Urine WBC None /HPF (0-5/HPF) Urine Squamous Epithelial Cells Few /LPF (NONE-FEW) Urine Bacteria Negative /HPF (NONE-FEW) Urine Mucus None /HPF (NONE-FEW) EKG/Imaging EKG Interpretation 12 lead EKG: Rhythm: Normal sinus rhythm, rate 93 [place]: normal QRS: Prolonged QT ST segments: normal Imaging CT BRAIN NO CONTRAST HISTORY: Fall COMPARISON STUDIES: 01/13/2019 TECHNIQUE: Contiguous axial images were obtained from the skull base to the vertex. One of the following dose optimization techniques was utilized in the performance of this exam: Automated exposure control; adjustment of the mA and/or kV according to the patient's size; or use of an iterative fady nstruction technique. Specific details can be referenced in the facility's radiology CT exam operational policy. FINDINGS: Hemorrhage: Negative Ventricles / sulci / fissures: Negative Masses / midline shift: Negative White matter: Confluent periventricular white matter low densities likely on the basis of small vessel disease. Noguera-white differentiation: Bilateral temporal lobe encephalomalacia is unchanged from prior exam. Extra-axial spaces: Negative Bones and skull base: Negative Visualized mastoid air cells / paranasal sinuses: Negative IMPRESSION: 1. No evidence for acute intracranial hemorrhage, mass or acute ischemia. 2. Confluent periventricular white matter low density is likely the basis of small vessel disease. 2. Encephalomalacia changes in both temporal lobes is unchanged prior examination. Report Dictated By: Alok James MD at 01/17/2019 10:25 PM Exam type: CHEST SINGLE AP History: Fall Comparison: CT scan 06/25/2018. Findings: Lungs are well-expanded. There is irregular density left lung base could represent atelectasis, scar or nodule. Prior CT scan demonstrated a subtle interstitial scar or atelectasis in the left lingula which may account for this abnormality but a follow-up chest x-ray suggested. No pleural effusion or pneumothorax. Heart size is normal. Osseous structures are unremarkable. IMPRESSION: 1. Irregular density left lung base could represent atelectasis or a scar but technically a nodule is not excluded. Prior CT scan from 06/25/2018 demonstrated some scarring or atelectasis in this region but slightly more lateral.. Recommend a follow-up chest x-ray in 6-8 weeks for reevaluation. Report Dictated By: Alok James MD at 01/17/2019 10:45 PM Exam type: 2 views of the hips History: FALLS/BRUISING Comparison: None. Findings: No evidence for acute fracture the right hip. Patient is osteopenic. Right pelvis is unremarkable. Left hip is notable for left hip arthroplasty without hardware complication or acute fracture. IMPRESSION: 1. Postoperative changes are noted from left hip arthroplasty. No evidence for hardware complication or fracture in either hip. Report Dictated By: Alok James MD at 01/17/2019 10:50 PM Exam type: 3 views right hand History: Fall Comparison: None. Findings: Patient is remarkably osteopenic. Degenerative changes are noted in the fingers. PIP joint of the right 4th finger is somewhat subluxed laterally which appears chronic. No acute fracture. Carpus aligns appropriately. Soft tissues are unremarkable. IMPRESSION: 1. No acute fracture of the right hand. 2. Osteopenia and degenerative changes are noted. Report Dictated By: Alok James MD at 01/17/2019 10:43 PM Exam type: FOOT 3 VIEW LEFT History: Fall Comparison: None. Findings: There is no acute fracture of left foot. Patient is osteopenic with flexion deformities of the toes. Metatarsals are intact. Soft tissues are unremarkable. IMPRESSION: 1. No acute fracture of the left foot. Report Dictated By: Alok James MD at 01/17/2019 10:51 PM Exam type: FOOT 3 VIEWS RIGHT History: Fall Comparison: None. Findings: There is no acute fracture of the right foot. Patient is osteopenic. Metatarsals are intact. Hindfoot is unremarkable. IMPRESSION: 1. No acute fracture of the right foot. Report Dictated By: Alok James MD at 01/17/2019 10:52 PM ED Course/Re-evaluation Clinical Indication for ER IV: Hydration, IV Access ED Course Initially concerned about sepsis, and started with a liter of normal saline, but with the hyponatremia, stopped after the single liter to correct the sodium slowly. Called and spoke with Dr. Sandhu, hospitalist, who accepted the patient for ICU admission. Imaging also done, and negative. Blood cultures and urine cath/culture obtained. Decision to Disposition Date: Jan 18, 2019 Decision to Disposition Time: 22:30 Critical Care Time I spent a total of 40 minutes of critical care time in obtaining history, performing a physical exam, bedside monitoring of interventions, collecting and interpreting tests and discussion with consultants but not including time spent performing procedures. Depart Departure Latest Vital Signs Vital Signs Date Time Temp Pulse Resp B/P (MAP) Pulse Ox O2 Delivery O2 Flow Rate FiO2 01/17/19 21:25 92 15 91 01/17/19 21:20 155/79 (104) 01/17/19 20:14 98.7 Impression: Primary Impression: Change in mental status Additional Impressions: Hyponatremia Hypomagnesemia Hypokalemia Alcoholism Condition: Condition Unchanged Disposition: Admitted from ER Referrals: MARTÍN GRAY MD (PCP) Problem Qualifiers Primary Impression: Change in mental status Altered mental status type: delirium Qualified Codes: R41.0 - Disorientati on, unspecified SAURABH LEOS MD Jan 17, 2019 20:16
[2019-01-17] MEDS ORDERED: NS(*) 0.9% 1000 ML BAG 1,000 ML IV ONE (20:40)
[2019-01-17 20:48] LABS: PLATELET COUNT, AUTOMATED 161 K/uL (150-450)
--- NOTE | 2019-01-17 22:35 | RADIOLOGY IMAGING REPORT ---
FACILITY: [facility] PATIENT NAME: Arely Mac : 1955 MR: [id number] V: [id number] EXAM DATE: ORDERING PHYSICIAN: SAURABH LEOS TECHNOLOGIST: Location: [facility] Patient: Arely Mac : 1955 Visit/Account:[id number] Date of Sevice: 01/17/2019 CT BRAIN NO CONTRAST HISTORY: Fall COMPARISON STUDIES: 01/13/2019 TECHNIQUE: Contiguous axial images were obtained from the skull base to the vertex. One of the following dose optimization techniques was utilized in the performance of this exam: Autom ated exposure control; adjustment of the mA and/or kV according to the patient's size; or use of an i terative reconstruction technique. Specific details can be referenced in the facility's radiology C T exam operational policy. FINDINGS: Hemorrhage: Negative Ventricles / sulci / fissures: Negative Masses / midline shift: Negative White matter: Confluent periventricular white matter low densities likely on the basis of small vesse l disease. Noguera-white differentiation: Bilateral temporal lobe encephalomalacia is unchanged from prior exam. Extra-axial spaces: Negative Bones and skull base: Negative Visualized mastoid air cells / paranasal sinuses: Negative IMPRESSION: 1. No evidence for acute intracranial hemorrhage, mass or acute ischemia. 2. Confluent periventricular white matter low density is likely the basis of small vessel disease. 2. Encephalomalacia changes in both temporal lobes is unchanged prior examination. Report Dictated By: Alok James MD at 01/17/2019 10:25 PM Report E-Signed By: Alok James MD at 01/17/2019 10:29 PM WSN:[id number]
--- NOTE | 2019-01-17 22:50 | RADIOLOGY IMAGING REPORT ---
FACILITY: [facility] PATIENT NAME: Arely Mac : 1955 MR: [id number] V: [id number] EXAM DATE: ORDERING PHYSICIAN: SAURABH LEOS TECHNOLOGIST: [place] [facility] [place] [place]rely [place] : 1955 Visit/Account:[id number] Date of Sevice: 01/17/2019 Exam type: 3 views right hand History: Fall Comparison: None. Findings: Patient is remarkably osteopenic. Degenerative changes are noted in the fingers. PIP joint of the rig ht 4th finger is somewhat subluxed laterally which appears chronic. No acute fracture. Carpus aligns appropriately. Soft tissues are unremarkable. IMPRESSION: 1. No acute fracture of the right hand. 2. Osteopenia and degenerative changes are noted. Report Dictated By: Alok James MD at 01/17/2019 10:43 PM Report E-Signed By: Alok James MD at 01/17/2019 10:45 PM WSN:[id number]
--- NOTE | 2019-01-17 22:56 | RADIOLOGY IMAGING REPORT ---
FACILITY: [facility] PATIENT NAME: Arely Mac : 1955 MR: [id number] V: [id number] EXAM DATE: [id number] ORDERING PHYSICIAN: SAURABH LEOS TECHNOLOGIST: Location: [facility] Patient: Arely Mac : 1955 Visit/Account:[id number] Date of Sevice: 01/17/2019 Exam type: CHEST SINGLE AP History: Fall Comparison: CT scan 06/25/2018. Findings: Lungs are well-expanded. There is irregular density left lung base could represent atelectasis, scar or nodule. Prior CT scan demonstrated a subtle interstitial scar or atelectasis in the left lingula w hich may account for this abnormality but a follow-up chest x-ray suggested. No pleural effusion or pneumothorax. Heart size is normal. Osseous structures are unremarkable. IMPRESSION: 1. Irregular density left lung base could represent atelectasis or a scar but technically a nodule is not excluded. Prior CT scan from 06/25/2018 demonstrated some scarring or atelectasis in this region but slightly more lateral.. Recommend a follow-up chest x-ray in 6-8 weeks for reevaluation. Report Dictated By: Alok James MD at 01/17/2019 10:45 PM Report E-Signed By: Alok James MD at 01/17/2019 10:50 PM WSN:[id number]
--- NOTE | 2019-01-17 22:57 | RADIOLOGY IMAGING REPORT ---
FACILITY: [facility] [place] PATIENT NAME: Arely Mac : 1955 MR: [id number] V: [id number] EXAM DATE: ORDERING PHYSICIAN: SAURABH LEOS TECHNOLOGIST: [facility] Patient: Arely Mac : 1955 Visit/Account:[id number] Date of Sevice: 01/17/2019 Exam type: 2 views of the hips History: FALLS/BRUISING Comparison: None. Findings: No evidence for acute fracture the right hip. Patient is osteopenic. Right pelvis is unremarkable. Left hip is notable for left hip arthroplasty without hardware complication or acute fracture. IMPRESSION: 1. Postoperative changes are noted from left hip arthroplasty. No evidence for hardware complication or fracture in either hip. Report Dictated By: Alok James MD at 01/17/2019 10:50 PM Report E-Signed By: Alok James MD at 01/17/2019 10:51 PM WSN:[id number]
--- NOTE | 2019-01-17 22:58 | RADIOLOGY IMAGING REPORT ---
FACILITY: [facility] [place] PATIENT NAME: Arely Mac : 1955 MR: [id number] V: [id number] EXAM DATE: ORDERING PHYSICIAN: SAURABH LEOS TECHNOLOGIST: [place] [facility] [place]: Arely Mac : 1955 Visit/Account:[id number] Date of Sevice: 01/17/2019 Exam type: FOOT 3 VIEW LEFT History: Fall Comparison: None. Findings: There is no acute fracture of left foot. Patient is osteopenic with flexion deformities of the toes. Metatarsals are intact. Soft tissues are unremarkable. IMPRESSION: 1. No acute fracture of the left foot. Report Dictated By: Alok James MD at 01/17/2019 10:51 PM Report E-Signed By: Alok James MD at 01/17/2019 10:52 PM WSN:[id number]
--- NOTE | 2019-01-17 22:58 | RADIOLOGY IMAGING REPORT ---
FACILITY: [facility] [place] PATIENT NAME: Arely Mac : 1955 MR: [id number] V: [id number] EXAM DATE: ORDERING PHYSICIAN: SAURABH LEOS TECHNOLOGIST: Location: [facility] Patient: Arely Mac : 1955 Visit/Account:[id number] Date of Sevice: 01/17/2019 Exam type: FOOT 3 VIEWS RIGHT History: Fall Comparison: None. Findings: There is no acute fracture of the right foot. Patient is osteopenic. Metatarsals are intact. Hindfoot is unremarkable. IMPRESSION: 1. No acute fracture of the right foot. Report Dictated By: Alok James MD at 01/17/2019 10:52 PM Report E-Signed By: Alok James MD at 01/17/2019 10:53 PM WSN:[id number]
[2019-01-17] MEDS ORDERED: FOLI-68 PO (22:59)
[2019-01-17 23:00] VITALS: BP 122/59
[2019-01-17] MEDS ORDERED: THIA100T6 PO (23:00)
[2019-01-17] MEDS ORDERED: CALC-852 PO (23:01)
[2019-01-17] MEDS ORDERED: MULT-27 PO (23:02)
[2019-01-17] MEDS ORDERED: MAGN400T36 PO (23:05)
[2019-01-17] MEDS: MAGNESIUM SULF 4 GM/50 ML BAG 50 ML IVPB ONE (23:10)
[2019-01-17] MEDS ORDERED: DIAZEPAM 10 MG TAB PO PRN (23:10)
[2019-01-17] MEDS ORDERED: THIAMINE HCL(*) 200 MG/2 ML IN 100 MG, FOLIC ACID(*) 50 MG/10 ML INJ 1 MG, MULTIVITAMIN... IV ONE (23:10)
--- NOTE | 2019-01-17 23:27 | EKG ---
FACILITY: [facility] [place] PATIENT NAME: KELLY VENCES : [id number] MR: [id number] V: [id number] EXAM DATE: ORDERING PHYSICIAN: SAURABH LEOS TECHNOLOGIST: LORRAINE Test Reason : ALTERD MENTAL STATUS Blood Pressure : / mmHG Vent. Rate : 093 BPM Atrial Rate : 093 BPM P-R Int : 152 ms QRS Dur : 088 ms QT Int : 412 ms P-R-T Axes : 079 070 071 degrees QTc Int : 512 ms Normal sinus rhythm Prolonged QT Abnormal ECG No previous ECGs available Confirmed by RHYS CAMEJO ([id number] on 01/18/2019 6:39:06 AM Referred By: Confirmed By:RHYS CAMEJO
[2019-01-17 23:30] VITALS: BP 129/62
[2019-01-17] MEDS ORDERED: THIAMINE HCL 200 MG/2 ML INJ ONE (23:30)
[2019-01-17] MEDS ORDERED: MAGNESIUM SULFATE 2 GM/50 ML ONE (23:31)
[2019-01-17] MEDS ORDERED: FLUSH 10 ML SYR IVP PRN (23:40)
[2019-01-17] MEDS ORDERED: INFLUENZA VIRUS VAC 0.5ML SYR IM ONLY ONE (23:40)
[2019-01-18] VITALS (25 sets, daily range): BP systolic 92–151; BP diastolic 44–97
[2019-01-18] MEDS ORDERED: DESMOPRESSIN ACET IVP SCH
[2019-01-18] MEDS ORDERED: FOLIC ACID 50 MG/10 ML 1ML INJ IV ONE (00:15)
[2019-01-18] MEDS ORDERED: THIAMINE HCL 200 MG/2 ML INJ IVP ONE (00:15)
[2019-01-18] MEDS ORDERED: THIAMINE HCL 200 MG/2 ML INJ ONE (00:17)
--- NOTE | 2019-01-18 00:24 | History & Physical ---
History of Present Illness Chief Complaint Mental status change. History of Present Illness The patient is a 63 year old female with PMH significant for chronic hyponatremia, alcohol dependence and recent UTI who was found this evening by her daughter at home with mental status changes. The patient's daughter gives the history as the patient is obtunded. Per the patient's daughter, the patient has not been feeling well for about 2 weeks. She has been having frequent falls at home. She did have an ER visit on 01/13 and was found to have a UTI. Sodium level at that time was 119. The patient was given an oral antibiotic and was started on sodium tablets. She had repeat lab work done on 01/15 and her sodium had improved to 120. This evening, the patient's daughter went to give her mother her evening dose of antibiotic and found her unresponsive, sitting on the couch in her own feces and urine. She could not get the patient up and had to call EMS. The patient drinks at least a 12 pack of beer daily. She has not been eating well over the past 2 weeks and her intake has been worse over the past few days. The patient has a history of withdrawal when stopping alcohol suddenly in the past. The patient has a long history of hyponatremia. She had been on sodium tablets in the past and these were stopped. History Problems: (1) Head and neck cancer Status: Resolved Comment: Tongue. (2) Hyperlipidemia Status: Chronic (3) Macrocytosis without anemia Status: Chronic (4) Tobacco abuse Status: Chronic (5) Eczema Status: Chronic (6) Hypertension Status: Chronic (7) Hyponatremia Status: Chronic (8) Alcoholism Status: Chronic Home Meds Active Scripts Sodium Chloride (SODIUM CHLORIDE) 1 Gm Tab, 1 GM PO QDAY for 14 Days, #14 TAB Prov:AGUSTO DUKE DO 01/13/19 Cephalexin Monohydrate (CEPHALEXIN) 500 Mg Cap, 500 MG PO BID for 7 Days, #14 CAP 0 Refills Prov:AGUSTO DUKE DO 01/13/19 Amlodipine Besylate (AMLODIPINE BESYLATE) 10 Mg Tablet, 1 TAB PO QDAY, #90 TAB 3 Refills Prov:MARTÍN GRAY MD 07/10/18 Losartan Potassium (LOSARTAN POTASSIUM) 100 Mg Tablet, 100 MG PO QDAY, #90 TAB 3 Refills Prov:MARTÍN GRAY MD 07/10/18 Reported Medications Magnesium Oxide (MAGNESIUM OXIDE) 400 Mg Tablet, 400 MG PO BID 01/17/19 Mu-Vits-Min Th/Lycopene/Lutein (CENTRUM SILVER TABLET) 1 Each Tablet, 1 EACH PO DAILY 01/17/19 Calcium Carbonate/Vitamin D3 (CALCIUM + VITAMIN D TABLET) 1 Each Tablet, 1 EACH PO DAILY 01/17/19 Thiamine HCl (B-1) 100 Mg Tablet, 1 TAB PO DAILY 01/17/19 Folic Acid (FOLIC ACID) 1 Mg Tablet, 1 MG PO QDAY, TAB 01/17/19 Allergies: Coded Allergies: No Known Drug Allergies (Unverified , 10/12/14) Patient History: Cardiac arrest MOTHER, , Age:67 FH: back pain BROTHER OR SISTER FH: diabetes mellitus BROTHER OR SISTER Hx Smoking: Yes Smoking Status: Current: Every Day Smoker Hx Alcohol Use: Yes (OCC) Social Drug Use: Never Review of Systems Constitutional: No Fever Neurological: Confusion, Weakness Gastrointestinal: Other (Decreased appetite and oral intake) Genitourinary: Dysuria Musculoskeletal: Other (Bruising due to frequent falls.) Exam Vital Signs Vital Signs Date Time Temp Pulse Resp B/P (MAP) Pulse Ox O2 Delivery O2 Flow Rate FiO2 01/17/19 22:25 87 91 01/17/19 22:20 128/58 (81) 01/17/19 21:25 15 01/17/19 20:14 98.7 General Appearance: Other (Somnolent but awakens with stimulation. ) Neuro: Other (Answers questions but not always appropriately.) Eyes: PERRLA Cardiovascular: Other (Tachy, regular.) Respiratory: Clear to Auscultation GI: Abd Soft and Non-Tender (BS+) Extremities: Warm, Perfused Integumentary: Other (Scattered bruises throughout. R anterior shoulder with large bruise. R mid back with quarter sized bruise. Abrasions over L flank. R buttock with partial skin thickness wound lateral to yaa cleft. No redness or discharge. Scattered bruises over LE. R foot with large bruise over forefoot and toes. R thumb completely bruised with extension of bruising into the R hand.) Psych: Other (Somnolent. ) Medical Decision Making Data Points Result Diagram: 01/17/19200201/17/19 0962 Item Value Date Time Lactate 1.1 mmol/L 01/17/192002 Calcium Level 8.1 mg/dl L 01/17/192002 Total Bilirubin 2.5 mg/dl H 01/17/192002 Aspartate Amino Transf (AST/SGOT) 225 U/L H 01/17/192002 Alanine Aminotransferase (ALT/SGPT) 91 U/L H 01/17/192002 Alkaline Phosphatase 160 U/L H 01/17/192002 Troponin I < 0.012 ng/ml 01/17/192002 Total Protein 6.5 g/dl 01/17/192002 Albumin 3.6 g/dl 01/17/192002 Magnesium Level 1.2 mg/dl L 01/17/192002 Serum Alcohol < 10 mg/dl 01/17/192002 Urine Color Yellow 01/17/192049 Urine Clarity Clear 01/17/192049 Urine pH 7.0 pH 01/17/192049 Urine Specific [place] 1.002 01/17/192049 Urine Protein Negative mg/dL 01/17/192049 Urine Glucose (UA) Negative mg/dL 01/17/192049 Urine Ketones Trace mg/dL 01/17/192049 Urine Blood Small 01/17/192049 Urine Nitrite Negative 01/17/192049 Urine Bilirubin Negative 01/17/192049 Urine Urobilinogen 2.0 mg/dL 01/17/192049 Urine Leukocyte Esterase Negative 01/17/192049 Urine RBC None /HPF 01/17/192049 Urine WBC None /HPF 01/17/192049 Urine Squamous Epithelial Cells Few /LPF 01/17/192049 Urine Bacteria Negative /HPF 01/17/192049 Urine Mucus None /HPF 01/17/192049 EKG / Imaging EKG Interpretation FACILITY: [facility] PATIENT NAME: ARELY VENCES : [id number] MR: [id number] V: [id number] EXAM DATE: ORDERING PHYSICIAN: SAURABH LEOS TECHNOLOGIST: LORRAINE Test Reason : ALTERD MENTAL STATUS Blood Pressure : / mmHG Vent. Rate : 093 BPM Atrial Rate : 093 BPM P-R Int : 152 ms QRS Dur : 088 ms QT Int : 412 ms P-R-T Axes : 079 070 071 degrees QTc Int : 512 ms Normal sinus rhythm Prolonged QT Abnormal ECG No previous ECGs available Referred By: Confirmed By: 50 T: / Imaging FACILITY: [facility] PATIENT NAME: Arely Vences : 1955 MR: [id number] V: [id number] EXAM DATE: [id number] ORDERING PHYSICIAN: SAURABH LEOS TECHNOLOGIST: Location: [facility] Patient: Arely Vences : 1955 Visit/Account:[id number] Date of Sevice: 01/17/2019 CT BRAIN NO CONTRAST HISTORY: Fall COMPARISON STUDIES: 01/13/2019 TECHNIQUE: Contiguous axial images were obtained from the skull base to the vertex. One of the following dose optimization techniques was utilized in the performance of this exam: Automated exposure control; adjustment of the mA and/or kV according to the patient's size; or use of an iterative recons truction technique. Specific details can be referenced in the facility's radiology CT exam operational policy. FINDINGS: Hemorrhage: Negative Ventricles / sulci / fissures: Negative Masses / midline shift: Negative White matter: Confluent periventricular white matter low densities likely on the basis of small vessel disease. Noguera-white differentiation: Bilateral temporal lobe encephalomalacia is unchanged from prior exam. Extra-axial spaces: Negative Bones and skull base: Negative Visualized mastoid air cells / paranasal sinuses: Negative IMPRESSION: 1. No evidence for acute intracranial hemorrhage, mass or acute ischemia. 2. Confluent periventricular white matter low density is likely the basis of small vessel disease. 2. Encephalomalacia changes in both temporal lobes is unchanged prior examination. Report Dictated By: Alok James MD at 01/17/2019 10:25 PM Report E-Signed By: Alok James MD at 01/17/2019 10:29 PM [id number] Pre-Admit Course Medical Record Review: Yes Assessment and Plan Problems: (1) Change in mental status Status: Acute Assessment & Plan: Likely due to an acute drop in her sodium level from 120 to 104. (2) Hyponatremia Status: Chronic Assessment & Plan: With acute worsening from 120 to 104. She received one liter of NS in ER and developed a water diuresis with a reported 2 L output in ER and another 650 ml out upon arrival to the ICU. Romeo placed for accurate output. A repeat BMP was done upon arrival to ICU and her sodium had increased to 112 mmol/L. Desmopressin was ordered to be given at 2mcg every 6 hours to slow her diuresis and prevent further correction of her sodium. She is at increased risk for osmotic demyelination syndrome due to her initial sodium level of 104 mmol/L and history of alcoholism. Will give desmopressin and recheck a BMP in 4 hours. If her sodium continues to increase, will need to give D5W. Will continue to mon itor BMPs every 4 hours. (3) Hypomagnesemia Status: Acute Assessment & Plan: Magnesium 4mg IV ordered. Recheck magnesium in am. (4) Hypokalemia Status: Acute Assessment & Plan: 40meq K rider ordered. Will repeat BMPs q 4 hrs and continue replacement as needed. (5) QT prolongation Status: Acute Assessment & Plan: Likely due to electrolyte abnormalities listed above. Avoid any QT prolonging drugs. Recheck EKG in am. (6) Alcoholism Status: Chronic Assessment & Plan: The patient drinks at least 12 beers daily. She has had withdrawal in the past. CIWA protocol ordered. Seizure precautions implemented. (7) Urinary tract infection Status: Acute Assessment & Plan: Culture grew multiple colony types. She is currently on Keflex 500mg bid. (8) Decubitus ulcer Status: Acute Assessment & Plan: R buttock. Keep clean and protected. Romeo placed. Wound care to evaluate on Saturday if needed. (9) Hypertension Status: Chronic Assessment & Plan: She is on losartan and amlodipine which will be held for now with close monitoring of her BP. Time Spent on Plan of Care: < 30 min Venous Thromboembolism Antithrombotics Is Pt On Any Antithrombotics?: No Prophylaxis Tx Contraindicated Pharmacological Contraindicati: Liver Disease Exam Sepsis Risk: Possible Severe Sepsis Risk RHYS AMIN MD Jan 18, 2019 00:24
[2019-01-18] MEDS: KCL (*) 20 MEQ/100 ML PREMIX 100 ML IV SCH ×4 (00:44→12:33)
[2019-01-18] MEDS ORDERED: D5W(*) 500 ML BAG 500 ML IV ONE (00:49)
[2019-01-18] MEDS: D5W(*) 500 ML BAG 500 ML IV PRN ×2 (00:59→14:29)
[2019-01-18] MEDS ORDERED: DESMOPRESSIN ACET IVP PRN (04:05)
[2019-01-18 08:13] LABS: PLATELET COUNT, AUTOMATED 132 K/uL (150-450)
[2019-01-18 08:27] LABS: INR 1.22
[2019-01-18] MEDS: CEPHALEXIN MONO 500 MG CAP PO SCH ×2 (09:05→20:24)
--- NOTE | 2019-01-18 10:20 | EKG ---
[place] [facility] [place] NAME: KELLY VENCES : [id number] MR: [id number] V: [id number] EXAM DATE: ORDERING PHYSICIAN: RHYS AMIN TECHNOLOGIST: RUBI Test Reason : PROLONGED QT Blood Pressure : / mmHG Vent. Rate : 077 BPM Atrial Rate : 077 BPM P-R Int : 154 ms QRS Dur : 090 ms QT Int : 436 ms P-R-T Axes : 064 051 056 degrees QTc Int : 493 ms Normal sinus rhythm Prolonged QT Abnormal ECG When compared with ECG of 17-JAN-2019 20:51, No significant change was found Confirmed by Ladarius Oviedo ([id number]) on 01/18/2019 9:14:09 PM Referred By: BRENNAN Confirmed By:Ladarius Knapp
[2019-01-18] MEDS ORDERED: THIAMINE HCL(*) 200 MG/2 ML IN 100 MG, FOLIC ACID(*) 50 MG/10 ML INJ 1 MG, MULTIVITAMIN... IV ONE (15:00)
[2019-01-18] MEDS ORDERED: NS(*) 0.9% 1000 ML BAG 1,000 ML IV PRN (21:05)
[2019-01-19] VITALS (23 sets, daily range): BP systolic 96–166; BP diastolic 41–84; Ht 170.2 cm; Wt 70.3 kg
[2019-01-19] MEDS ORDERED: NS(*) 0.9% 1000 ML BAG 1,000 ML IV PRN (00:41)
[2019-01-19] MEDS: KCL (*) 20 MEQ/100 ML PREMIX 100 ML IV SCH ×2 (00:46→03:29)
[2019-01-19] MEDS ORDERED: D5W(*) 500 ML BAG 500 ML IV PRN (06:05)
--- NOTE | 2019-01-19 09:02 | Hospitalist Progress Note ---
Subjective Progress Notes Subjective She denies pain or nausea. She is eating breakfast. Physical Exam Vital Signs Date Time Temp Pulse Resp B/P (MAP) Pulse Ox O2 Delivery O2 Flow Rate FiO2 01/19/19 06:00 18 141/60 (87) Nasal Cannula 1.0 01/19/19 05:00 73 89 01/19/19 04:00 97.7 Intake and Output 01/19/19 07:02 Intake Total 2664 ml Output Total 4590 ml Balance -1926 ml Intake Oral 1680 ml IV Total 984 ml Output Urine Total 4590 ml General Appearance: Alert, Awake, No Acute Distress Neuro: Other (Knows she is in the hospital in [place], thinks it is 1918, but knows the month.) Cardiovascular: Regular Rate and Rhythm Respiratory: Clear to Auscultation Extremities: No Edema Result Diagram: 01/18/19 0753 01/19/19 0508 Assessment and Plan Problems: (1) Change in mental status Status: Acute Assessment & Plan: Likely due to an acute drop in her sodium level from 120 to 104. Near baseline, now. (2) Hyponatremia Status: Chronic Assessment & Plan: With acute worsening from 120 to 104. She received one liter of NS in ER and developed a water diuresis with a reported 2 L output in ER and another 650 ml out upon arrival to the ICU. Romeo placed for accurate output. A repeat BMP was done upon arrival to ICU and her sodium had increased to 112 mmol/L. Desmopressin 2mcg given x1. Her sodium was 120 this morning, so was started on D5W. She is at increased risk for osmotic demyelination syndrome due to her initial sodium level of 104 mmol/L and history of alcoholism. She needs to correct no faster then a rate of 6 mmol/L per 24 hours. Will try to get her sodium to 116 tomorrow morning. (3) Hypomagnesemia Status: Acute Assessment & Plan: Improved with replacement. Recheck magnesium in am. (4) Hypokalemia Status: Acute Assessment & Plan: Improved with KCL and Mg replacement. Follow. (5) QT prolongation Status: Acute Assessment & Plan: Likely due to electrolyte abnormalities listed above. Avoid any QT prolonging drugs. Improving on recent ECG. (6) Alcoholism Status: Chronic Assessment & Plan: The patient drinks at least 12 beers daily. She has had withdrawal in the past. [facility] protocol ordered. Seizure precautions implemented. (7) Urinary tract infection Status: Acute Assessment & Plan: Culture grew multiple colony types from the urine on 01/13. The culture from 01/17 has no growth to date. She is afebrile and has a normal wbc. She is currently on Keflex 500mg bid since 01/13, which will be stopped (8) Decubitus ulcer Status: Acute Assessment & Plan: R buttock. Keep clean and protected. Romeo placed. Wound care to evaluate on Saturday if needed. (9) Hypertension Status: Chronic Assessment & Plan: She is on losartan and amlodipine which will be held for now with close monitoring of her BP. Exam Sepsis Risk: No Definite Risk Problem Qualifiers (1) Change in mental status: Altered mental status type: delirium Qualified Codes: R41.0 - Disorientation, unspecified NICHOLE ACOSTA MD Jan 19, 2019 09:02
[2019-01-19] MEDS: FOLIC ACID 1 MG TAB PO SCH (09:16)
[2019-01-19] MEDS: THIAMINE HCL 100 MG TAB PO SCH (09:16)
--- NOTE | 2019-01-19 10:50 | Medical Nutrition Therapy ---
Nutrition Anthropometrics Height (Inches): 67.00 Height (Calculated Centimeters: 170.225480 Weight (Pounds): 155 Weight (Calculated Kilograms): 70.307 BMI: 24.3 Evan Nutrition Score: Probably Inadequate Evan Nutrition Risk Score: 13 Dietary Referral Nutrition Risk Factors: Nutrition Risk Comment: Physical Findings Physical Appearance: wnr Skin Appearance Skin Appearance: Edema Edema Location Modifier: Edema Location: Type of Edema: Degree of Edema: Gastrointestinal Symptoms GI Symtoms: Tube Present: Bowel Sounds: Recent Bowel Pattern: Stool Characteristics: Nutritional Diagnosis Nutritional Risk Acuity 2: Pr Appetite > 3d Nutritional Risk Acuity 3: ST I/II Pressure Ulcer, Alcohol abuse Past Medical History: alcohol 12+ beers/day, hyponatreia, Nutritional Acuity: 2-Moderate Nutrition Diagnosis: Inadequate Food Intake, Excessive Alcohol Intake Nutrition Etiology: Alcohol Addiction Nutrition Problem/Etiology/Sym: AEB intake reported 12+ beers/day Energy Requirement: 1585 (MSJ) Protein Requirement: 70 (1gm/kg) Fluid Requirement: 1585 (1ml/kcal) Nutrition Intervention: Encourage intake Additional Diet Restrictions: OFFER BREANNA AT BREAKFAST AND SUPPER MEALS Diet Comment To [facility]: ENCOURAGE HIGH PROTEIN, HIGH KCAL FOODS Nutrition Monitoring & Eval Nutrition Goals: Eat 75-100% Meal RD Patient Assessment Time: [address] Assessment Type: RD Assessment Patient Nutrition Acuity: 2-Moderate Follow Up Date: Jan 23, 2019 Nutritional Comment: 01/19 Pt admitted for AMS with hyponaterina, hypomagnesium, kypokalemeia. currently Alb 2.9, Na 120, Mg 2.3, K+ 3.7. Pt has hx of drinking 12+ beers/day. Pt has unstated decubitus to buttock. Will offer wound healing nutr supplement. Pt on regualr diet and eating 0-10% of meals. Will encourage high protein, high kcal. BMI is within acceptable range. Will cont to monitor and encourage intake TUSHAR DHILLON Jan 19, 2019 10:50
[2019-01-19] MEDS: D5W(*) 1000 ML BAG 1,000 ML IV PRN ×2 (13:28→23:19)
[2019-01-19] MEDS ORDERED: THIAMINE HCL(*) 200 MG/2 ML IN 100 MG, FOLIC ACID(*) 50 MG/10 ML INJ 1 MG, MULTIVITAMIN... IV ONE (15:00)
[2019-01-19] MEDS ORDERED: DESMOPRESSIN ACET IVP ONE (21:00)
[2019-01-19] MEDS ORDERED: MELATONIN 3 MG TAB PO SCH (21:20)
[2019-01-19] MEDS: BENZONATATE 100 MG CAP PO PRN (21:33)
[2019-01-20] VITALS (25 sets, daily range): BP systolic 106–178; BP diastolic 55–102
[2019-01-20 05:20] LABS: PLATELET COUNT, AUTOMATED 147 K/uL (150-450)
[2019-01-20] MEDS ORDERED: D5W(*) 1000 ML BAG 1,000 ML IV PRN (05:57)
[2019-01-20] MEDS ORDERED: MAGNESIUM SULF 4 GM/50 ML BAG 50 ML IVPB ONE (08:00)
--- NOTE | 2019-01-20 08:31 | Hospitalist Progress Note ---
Subjective Progress Notes Subjective Alert and awake. She is oriented to person and place, but not time. She denies any specific complaints. Physical Exam Vital Signs Date Time Temp Pulse Resp B/P (MAP) Pulse Ox O2 Delivery O2 Flow Rate FiO2 01/20/19 06:00 97.7 70 16 178/76 (110) 95 Room Air 01/19/19 06:00 1.0 Intake and Output 01/20/19 07:02 Intake Total 5361 ml Output Total 6155 ml Balance -794 ml Intake Oral 3300 ml IV Total 2061 ml Output Urine Total 6155 ml # Bowel Movements 1 General Appearance: Alert, Awake Neuro: Other (no focal deficits/appears mildly motor agitated) Cardiovascular: Regular Rate and Rhythm Respiratory: Clear to Auscultation GI: Soft and Non-Tender Extremities: Warm, Perfused Result Diagram: 01/20/19 0454 01/20/19 045 Assessment and Plan Problems: (1) Hyponatremia Status: Chronic Assessment & Plan: Most likely due to poor nutritional status and excessive water/beer intake. She had acute worsening from 120 (01/15) to 104 (01/17). She received one liter of NS in ER and developed a water diuresis with a reported 2L output in ER and another 650 ml out upon arrival to the ICU. Romeo placed for accurate output. A repeat BMP was done upon arrival to ICU and her sodium had increased to 112 mmol/L. Desmopressin 2mcg given x1. She is at increased risk for osmotic demyelination syndrome due to her initial sodium level of 104 mmol/L and history of alcoholism. She needs to correct no faster then a rate of 6 mmol/L per 24 hours. Her sodium is 113 this morning. Will hold all IV fluids. Place on 1800ml/24hr fluid restriction. Check BMP every 4-6 hours. (2) Change in mental status Status: Acute Assessment & Plan: Likely due to an acute drop in her sodium from 120 to 104. Still somewhat disoriented, but nearing her baseline now, per family. (3) Hypomagnesemia Status: Acute Assessment & Plan: Continue with replacement. Recheck magnesium daily. (4) Hypokalemia Status: Acute Assessment & Plan: Persistent. Continue with K+ and Mg++ replacement. Follow. (5) QT prolongation Status: Acute Assessment & Plan: Likely due to electrolyte abnormalities listed above. Avoid any QT prolonging drugs. Improving on recent ECG. (6) Alcoholism Status: Chronic Assessment & Plan: The patient drinks at least 12 beers daily. She has had withdrawal in the past. CIWA protocol ordered. Seizure precautions implemented. (7) Urinary tract infection Status: Acute Assessment & Plan: Culture grew multiple colony types from the urine on 01/13. The culture from 01/17 has no growth to date. She is afebrile and has a normal WBC count. She was initially on Keflex 500mg BID, which has been stopped (8) Decubitus ulcer Status: Acute Assessment & Plan: R buttock. Keep clean and protected. Romeo placed. Wound care to evaluate. (9) Hypertension Status: Chronic Assessment & Plan: She is on losartan and amlodipine which will be held for now with close monitoring of her BP. Her BPs have been moderately elevated intermittently. No changes at this time. Exam Sepsis Risk: No Definite Risk Problem Qualifiers (1) Change in mental status: Altered mental status type: delirium Qualified Codes: R41.0 - Disorientation, unspecified MIKE AMIN MD Jan 20, 2019 08:31
[2019-01-20] MEDS: POTASSIUM CHL 10 MEQ TABCR PO SCH ×3 (08:56→17:22)
[2019-01-20] MEDS: FOLIC ACID 1 MG TAB PO SCH (08:57)
[2019-01-20] MEDS: THIAMINE HCL 100 MG TAB PO SCH (08:57)
[2019-01-20] MEDS: MAGNESIUM OXIDE 400 MG TAB PO SCH ×2 (09:04→21:16)
[2019-01-20] MEDS ORDERED: NICOTINE CARTRIDGE 1 EA PO PRN (14:05)
[2019-01-20] MEDS: NICOTINE INH SYSTEM 10 MG/INH INH PRN ×2 (14:31→21:16)
[2019-01-20] MEDS: MELATONIN 3 MG TAB PO SCH (21:16)
[2019-01-21] VITALS (10 sets, daily range): BP systolic 95–131; BP diastolic 49–62
[2019-01-21 05:48] LABS: PLATELET COUNT, AUTOMATED 179 K/uL (150-450)
[2019-01-21] MEDS: THIAMINE HCL 100 MG TAB PO SCH (08:48)
[2019-01-21] MEDS: FOLIC ACID 1 MG TAB PO SCH (08:48)
[2019-01-21] MEDS: MAGNESIUM OXIDE 400 MG TAB PO SCH ×2 (08:48→21:05)
[2019-01-21] MEDS: POTASSIUM CHL 10 MEQ TABCR PO SCH ×2 (08:48→12:38)
[2019-01-21] MEDS ORDERED: SODIUM CHLORIDE 1 GR TAB PO SCH (09:00)
--- NOTE | 2019-01-21 09:47 | Hospitalist Progress Note ---
Subjective Progress Notes Subjective She ate some this morning. She wants to go home. Physical Exam Vital Signs Date Time Temp Pulse Resp B/P (MAP) Pulse Ox O2 Delivery O2 Flow Rate FiO2 01/21/19 07:55 92 Room Air 01/21/19 07:54 98.4 74 12 105/54 (71) 01/19/19 06:00 1.0 Intake and Output 01/21/19 07:02 Intake Total 1976.8 ml Output Total 3145 ml Balance -1168.2 ml Intake Oral 1815 ml IV Total 161.8 ml Output Urine Total 3145 ml General Appearance: Alert, Awake, No Acute Distress Neuro: Other (Confused to events leading admission. Knows where she is, but thinks it's 1918 and February. Not consistent with giving answers to where she lives. No focal motor deficits and no facial droop.) Extremities: No Edema Result Diagram: 01/21/1951701/21/19517 Assessment and Plan Problems: (1) Hyponatremia Status: Chronic Assessment & Plan: Most likely due to poor nutritional status and excessive water/beer intake. She had acute worsening from 120 (01/15) to 104 (01/17). She received one liter of NS in ER and developed a water diuresis with a reported 2L output in ER and another 650 ml out upon arrival to the ICU. Romeo placed for accurate output. A repeat BMP was done upon arrival to ICU and her sodium had increased to 112 mmol/L. Her sodium did go as high as 120 on 01/20 related to isma ine administration, but was corrected down with D5W. Desmopressin 2mcg given x2 since admission. She is at increased risk for osmotic demyelination syndrome due to her initial sodium level of 104 mmol/L and history of alcoholism. She needs to correct no faster then a rate of 6 mmol/L per 24 hours (which overall, she is correcting slower than that rate.) Off of IVF and on 1800ml/24hr fluid rest riction since the morning of 01/20. Her sodium is 111 this morning. Will start 1g of NaCl orally. Check BMP closely. (2) Change in mental status Status: Acute Assessment & Plan: Likely due to an acute drop in her sodium from 120 to 104. Still somewhat disoriented, but not having symptoms consistent with osmotic demyelination syndrome. (3) Hypomagnesemia Status: Acute Assessment & Plan: Continue with replacement. Recheck magnesium daily. (4) Hypokalemia Status: Acute Assessment & Plan: Persistent. Continue with K+ and Mg++ replacement. Follow. (5) QT prolongation Status: Acute Assessment & Plan: Likely due to electrolyte abnormalities listed above. Avoid any QT prolonging drugs. Improving on recent ECG. (6) Alcoholism Status: Chronic Assessment & Plan: The patient drinks at least 12 beers daily. She has had withdrawal in the past. CIWA protocol ordered. Seizure precautions implemented. (7) Urinary tract infection Status: Acute Assessment & Plan: Culture grew multiple colony types from the urine on 01/13. The culture from 01/17 has no growth to date. She is afebrile and has a normal W BC count. She was initially on Keflex 500mg BID, which has been stopped (8) Decubitus ulcer Status: Acute Assessment & Plan: R buttock. Keep clean and protected. Romeo placed. Wound care to evaluate. (9) Hypertension Status: Chronic Assessment & Plan: She is on losartan and amlodipine which will be held for now with close monitoring of her BP. Her BPs have been moderately elevated intermittently. No changes at this time. Exam Sepsis Risk: No Definite Risk Problem Qualifiers (1) Change in mental status: Altered mental status type: delirium Qualified Codes: R41.0 - Disorientation, unspecified NICHOLE ACOSTA MD Jan 21, 2019 09:47
[2019-01-21] MEDS ORDERED: D5W(*) 1000 ML BAG 1,000 ML IV PRN (18:45)
--- NOTE | 2019-01-21 19:10 | Miscellaneous Provider Note ---
Miscellaneous Provider Note Note Sodium increased 6mmol/L in 12 hours after the 1g NaCL. Will start D5W again at 50cc/hr. Will decrease to 0.5g NaCL. Her daughter reports that the patient has been confused for about 2 weeks, that progressively worsened. The patient is still fairly confused, and not at baseline. Because of the long standing alco hol use and hyponatremia that seems to be nutritional/alcohol related, will replace Thiamine for a possible Wernicke's (i.e. 500mg IV tid x2d, then 250mg IV daily x5d, then 100mg orally a day). Also, will check B12/Folate, CRP, Ammonia, VBG, Phosphorus. Will get an MRI of the brain. The plan was discussed with the daughter. NICHOLE ACOSTA MD Jan 21, 2019 19:10
[2019-01-21] MEDS: MELATONIN 3 MG TAB PO SCH (21:05)
[2019-01-21] MEDS: THIAMINE HCL 200 MG/2 ML INJ IVP SCH (21:05)
[2019-01-22] VITALS (9 sets, daily range): BP systolic 96–124; BP diastolic 45–67
[2019-01-22 06:06] LABS: INR 1.15
[2019-01-22] MEDS ORDERED: D5W(*) 1000 ML BAG 1,000 ML IV PRN ×3 (06:38→16:08)
[2019-01-22] MEDS ORDERED: DESMOPRESSIN ACET IVP ONE (06:45)
[2019-01-22] MEDS ORDERED: LORazepam 2 MG/ML VIAL IVP ONE (07:40)
[2019-01-22] MEDS ORDERED: SODIUM CHLORIDE 1 GR TAB PO SCH (09:00)
[2019-01-22] MEDS: MAGNESIUM OXIDE 400 MG TAB PO SCH ×2 (09:23→21:25)
[2019-01-22] MEDS: FOLIC ACID 1 MG TAB PO SCH (09:23)
[2019-01-22] MEDS: THIAMINE HCL 200 MG/2 ML INJ IVP SCH ×3 (09:23→21:33)
--- NOTE | 2019-01-22 11:26 | RADIOLOGY IMAGING REPORT ---
FACILITY: [facility] PATIENT NAME: Arely Mac : 1955 MR: [id number] V: [id number] EXAM DATE: ORDERING PHYSICIAN: NICHOLE ACOSTA TECHNOLOGIST: Location: [facility] [place] Patient: Arely Mac : 1955 Visit/Account:[id number] Date of Sevice: 01/22/2019 Exam type: MR BRAIN/BRAIN STEM W/O CON Clinical Indication: Altered mental status. Comparison: None Technique: Multiplanar and multisequence MRI images of the brain were obtained without IV contrast. Please note, evaluation is somewhat suboptimal secondary to motion artifact. Result: DWI and ADC are negative for acute ischemia. The normally visualized major intracranial flow- voids are preserved. There is normal el-white matter differentiation. There is moderate to advanced T2 hyperintensities within the periventricular and subcortical white matter which are nonspecific however likely represen t chronic microvascular ischemic changes. . The ventricles and sulci demonstrate mild atrophy. Ther e is no evidence of intra cerebral hemorrhage, intracranial mass, or extraaxial fluid collection. The visualized midline structures including the corpus callosum, pituitary, and brainstem are within normal limits. The visualized bony structures and soft tissues are within normal limits. The visualized orbits are w ithin normal limits. The visualized paranasal sinuses demonstrate mild ethmoid sinus disease. Impression: Please note, evaluation is somewhat suboptimal secondary to motion artifact. 1. No acute findings of the brain. No visualized infarct. 2. Moderate to advanced T2 hyperintensities within the periventricular and subcortical white matter w hich are nonspecific however likely represent chronic microvascular ischemic changes. Report Dictated By: Daquan Moralez MD at 01/22/2019 11:17 AM Report E-Signed By: Daquan Moralez MD at 01/22/2019 11:20 AM WSN:[id number]
--- NOTE | 2019-01-22 12:54 | Hospitalist Progress Note ---
Subjective Progress Notes Subjective Remains confused, RIOS overnight. Asking about when she can go home. Patient Complains of: Neurological: Confusion Gastrointestinal: No Nausea, No Vomiting Physical Exam Vital Signs Date Time Temp Pulse Resp B/P (MAP) Pulse Ox O2 Delivery O2 Flow Rate FiO2 01/22/19 11:48 93 Room Air 01/22/19 10:00 85 14 116/59 (78) 01/22/19 07:40 98.2 1.0 Intake and Output 01/22/19 07:02 Intake Total 2182 ml Output Total 350 ml Balance 1832 ml Intake Oral 1798 ml IV Total 384 ml Output Urine Total 350 ml # Voids 5 # Bowel Movements 2 General Appearance: Alert, Awake, No Acute Distress Neuro: No Gross deficits Cardiovascular: Normal Rhythm & Peripheral Pulses Respiratory: No Respiratory Distress Extremities: Soft and Non Tender, Warm, Pulses, Perfused Result Diagram: 01/21/19 0518 01/22/19 0942 Assessment and Plan Problems: (1) Hyponatremia Status: Chronic Assessment & Plan: Most likely due to poor nutritional status and excessive water/beer intake. She had acute worsening from 120 (01/15) to 104 (01/17). She received one liter of NS in ER and developed a water diuresis with a reported 2L output in ER and another 650 ml out upon arrival to the ICU. A repeat BMP was done upon arrival to ICU and her sodium had increased to 112 mmol/L. Her sodium did go as high as 120 on 01/20 related to saline administration, but was corrected down with D5W. Desmopressin 2mcg given x2 since admission. She is at increased risk for osmotic demyelination syndrome due to her initial sodium level of 104 mmol/L and history of alcoholism. She needs to correct no faster then a rate of 6 mmol/L per 24 hours (which overall, she is correcting slower than that rate.) Sodium did fall after stopping IV fluids. Received 1g PO Na tablet ., sodium then increased rapidly from 111 to 122. Urine output is limited and DDAVP did not greatly impact Na. (2) Change in mental status Status: Acute Assessment & Plan: Likely due to an acute drop in her sodium from 120 to 104. Still somewhat disoriented, but not having symptoms consistent with osmotic demyelination syndrome. MRI negative for acute pathology, she is receiving Wernicke level thiamine dosing. (3) Hypomagnesemia Status: Acute Assessment & Plan: Continue with replacement. Recheck magnesium daily. (4) Hypokalemia Status: Acute Assessment & Plan: Persistent. Continue with K+ and Mg++ replacement. Follow. (5) QT prolongation Status: Acute Assessment & Plan: Likely due to electrolyte abnormalities listed above. Avoid any QT prolonging drugs. Improving on recent ECG. (6) Alcoholism Status: Chronic Assessment & Plan: The patient drinks at least 12 beers daily. She has had withdrawal in the past. [facility] protocol stopped 01.22 after no evidence of w/d since admission. (7) Urinary tract infection Status: Acute Assessment & Plan: Culture grew multiple colony types from the urine on 01/13. The culture from 01/17 has no growth to date. She is afebrile and has a normal WBC count. She was initially on Keflex 500mg BID, which has been stopped (8) Decubitus ulcer Status: Acute Assessment & Plan: R buttock. Keep clean and protected. Romeo placed. Wound care to evaluate. (9) Hypertension Status: Chronic Assessment & Plan: She is on losartan and amlodipine which will be held for now with close monitoring of her BP. Her BPs have been moderately elevated intermittently. No changes at this time. Exam Sepsis Risk: No Definite Risk Problem Qualifiers (1) Change in mental status: Altered mental status type: delirium Qualified Codes: R41.0 - Disorientation, unspecified KASSIDY LATIF DO Jan 22, 2019 12:54
[2019-01-22] MEDS: MELATONIN 3 MG TAB PO SCH (21:25)
[2019-01-23] VITALS (10 sets, daily range): BP systolic 81–140; BP diastolic 42–82
--- NOTE | 2019-01-23 08:19 | Hospitalist Progress Note ---
Subjective Progress Notes Subjective Agitation appears less. She seems to be less impulsive. Physical Exam Vital Signs Date Time Temp Pulse Resp B/P (MAP) Pulse Ox O2 Delivery O2 Flow Rate FiO2 01/23/19 07:02 90 Room Air 01/23/19 07:00 97.7 66 11 01/23/19 06:00 133/82 (99) 01/22/19 07:40 1.0 Intake and Output 01/23/19 07:02 Intake Total 2371 ml Balance 2371 ml Intake Oral 1240 ml IV Total 1131 ml # Voids 3 General Appearance: Alert, Awake Cardiovascular: Regular Rate and Rhythm Respiratory: Clear to Auscultation GI: Soft and Non-Tender Extremities: Warm, Perfused Result Diagram: 01/21/19 0518 01/23/19 0454 Assessment and Plan Problems: (1) Hyponatremia Status: Chronic Assessment & Plan: Most likely due to poor nutritional status and excessive water/beer intake. She has had rather variable response to IV fluids/increased oral supplementation. She has shown a general trend to slightly higher sodium, but required intermittent hypotonic fluids and/or DDAVP to keep rate of rise controlled. At this point will continue with fluid restriction, avoid IV fluids or additional oral sodium supplementation, and monitor sodium. Will transfer out of ICU today. (2) Change in mental status Status: Acute Assessment & Plan: Likely due to an acute drop in her sodium from 120 to 104. Still somewhat disoriented, but not having symptoms consistent with osmotic demyelination syndrome. MRI negative for acute pathology, she is receiving Wernicke level thiamine dosing. (3) Hypomagnesemia Status: Acute Assessment & Plan: Continue with replacement. Monitor magnesium periodically. (4) Hypokalemia Status: Acute Assessment & Plan: Resolved. Continue with K+ and Mg++ replacement. Monitor. (5) QT prolongation Status: Acute Assessment & Plan: Improved/resolved. Likely due to electrolyte abnormalities listed above. Avoid any QT prolonging drugs. (6) Alcoholism Status: Chronic Assessment & Plan: The patient drinks at least 12 beers daily. She has had withdrawal in the past. CIWA protocol stopped 01/22/19 after no evidence of withdrawal. (7) Urinary tract infection Status: Acute Assessment & Plan: Culture grew multiple colony types from the urine on 01/13. The culture from 01/17 has no growth to date. She is afebrile and has a normal WBC count. She was initially on Keflex 500mg BID, which has been stopped (8) Decubitus ulcer Status: Acute Assessment & Plan: R buttock. Keep clean and protected. Romeo initially placed, but has now been removed. (9) Hypertension Status: Chronic Assessment & Plan: She had been on losartan and amlodipine, which have been held since admit. Her BPs have been in low normal to normal range. Will plan on continuing to hold the antihypertensive medications. Exam Sepsis Risk: No Definite Risk Problem Qualifiers (1) Change in mental status: Altered mental status type: delirium Qualified Codes: R41.0 - Disorientation, unspecified MIKE AMIN MD Jan 23, 2019 08:19
--- NOTE | 2019-01-23 09:22 | Medical Nutrition Therapy ---
Nutrition Anthropometrics Height (Inches): 67.00 Height (Calculated Centimeters: 170.922503 Weight (Pounds): 155 Weight (Calculated Kilograms): 70.307 BMI: 24.3 Evan Nutrition Score: Probably Inadequate Evan Nutrition Risk Score: 16 Dietary Referral Nutrition Risk Factors: Nutrition Risk Comment: Physical Findings Physical Appearance: wnr Skin Appearance Skin Appearance: Edema Edema Location Modifier: Edema Location: Type of Edema: Degree of Edema: Gastrointestinal Symptoms GI Symtoms: Appetite Changes Tube Present: Bowel Sounds: Recent Bowel Pattern: Stool Characteristics: Nutritional Diagnosis Nutritional Risk Acuity 2: Pr Appetite > 3d Nutritional Risk Acuity 3: ST I/II Pressure Ulcer, Alcohol abuse Past Medical History: alcohol 12+ beers/day, hyponatreia, Nutritional Acuity: 2-Moderate Nutrition Diagnosis: Inadequate Food Intake, Excessive Alcohol Intake Nutrition Etiology: Alcohol Addiction Nutrition Problem/Etiology/Sym: AEB intake reported 12+ beers/day Energy Requirement: 1585 (MSJ) Protein Requirement: 70 (1gm/kg) Fluid Requirement: 1585 (1ml/kcal) Diet Type: Diet as Tolerated GABRIELLA/REG Nutrition Intervention: Cont diet as ordered, Encourage intake Additional Diet Restrictions: OFFER BREANNA AT BREAKFAST AND SUPPER MEALS Diet Comment To RSA: ENCOURAGE HIGH PROTEIN, HIGH KCAL FOODS Nutrition Monitoring & Eval Nutrition Goals: Eat 75-100% Meal, Fluid Restrictions RD Patient Assessment Time: [address] Assessment Type: RD Assessment Patient Nutrition Acuity: 2-Moderate Follow Up Date: Jan 27, 2019 Nutritional Comment: 01/19 Pt admitted for AMS with hyponaterina, hypomagnesium, kypokalemeia. currently Alb 2.9, Na 120, Mg 2.3, K+ 3.7. Pt has hx of drinking 12+ beers/day. Pt has unstated decubitus to buttock. Will offer wound healing nutr supplement. Pt on regualr diet and eating 0-10% of meals. Will encourage high protein, high kcal. BMI is within acceptable range. Will cont to monitor and encourage intake AYSHA 01/23 Pt cont on Gabriella. Intake average 36% of small to regular portions. pt taking occasional nutr supplement. Cont to offer nutr supplement and encourage high protein foods to assist with healing. Alb 3.4, Na 119, RBG range 107-239. No hx of diabetes but pt was receiving dextrose. Will cont to monitor and encourage intake. TUSHAR DHILLON Jan 23, 2019 09:22
[2019-01-23] MEDS: FOLIC ACID 1 MG TAB PO SCH (09:25)
[2019-01-23] MEDS: MAGNESIUM OXIDE 400 MG TAB PO SCH ×2 (09:25→20:30)
[2019-01-23] MEDS: THIAMINE HCL 200 MG/2 ML INJ IVP SCH ×2 (10:09→14:34)
[2019-01-23] MEDS: BENZONATATE 100 MG CAP PO PRN (20:30)
[2019-01-23] MEDS: MELATONIN 3 MG TAB PO SCH (20:30)
[2019-01-24 02:58] VITALS: BP 104/67
[2019-01-24 06:05] LABS: PLATELET COUNT, AUTOMATED 187 K/uL (150-450)
[2019-01-24 06:50] VITALS: BP 131/63
[2019-01-24] MEDS: THIAMINE HCL 200 MG/2 ML INJ IVP SCH (09:24)
[2019-01-24] MEDS: FOLIC ACID 1 MG TAB PO SCH (09:24)
[2019-01-24] MEDS: MAGNESIUM OXIDE 400 MG TAB PO SCH ×2 (09:24→20:54)
--- NOTE | 2019-01-24 10:05 | Hospitalist Progress Note ---
Subjective Progress Notes Subjective This patient was admitted for altered mental status. She had no acute changes overnight. Patient Complains of: Cardiovascular: No: Chest Pain Respiratory: No: Shortness of Breath Physical Exam Vital Signs Date Time Temp Pulse Resp B/P (MAP) Pulse Ox O2 Delivery O2 Flow Rate FiO2 01/24/19 07:45 92 Room Air 01/24/19 06:50 98.2 70 16 131/63 (85) 01/22/19 07:40 1.0 Intake and Output 01/24/19 07:02 Intake Total 820 ml Balance 820 ml Intake Oral 820 ml # Voids 13 # Bowel Movements 3 Neuro: No Gross deficits Cardiovascular: Regular Rate and Rhythm Respiratory: Clear to Auscultation Result Diagram: 01/24/1954101/24/19541 Assessment and Plan Problems: (1) Hyponatremia Status: Chronic Assessment & Plan: She did present with a sodium of 104. She was treated intermittently with fluids and DDAVP. She has received no specific treatment over the last few days, and her sodium is beginning to normalize. (2) Change in mental status Status: Acute Assessment & Plan: Secondary to chronic alcoholism and hyponatremia. Her mentation has been gradually improving. (3) Hypomagnesemia Status: Acute Assessment & Plan: Resolved with supplementation. (4) Hypokalemia Status: Acute Assessment & Plan: Resolved with supplementation. (5) QT prolongation Status: Acute Assessment & Plan: Resolved. (6) Alcoholism Status: Chronic Assessment & Plan: The patient drinks at least 12 beers daily. She was on CIWA protocol, but is no longer requiring treatment. She is on thiamine replacement. (7) Urinary tract infection Status: Acute Assessment & Plan: Culture grew multiple colony types from the urine on 01/13. The culture from 01/17 has no growth to date. She is afebrile and has a normal WBC count. She was initially on Keflex 500mg BID, which has been stopped (8) Decubitus ulcer Status: Acute Assessment & Plan: R buttock. Keep clean and protected. Romeo initially placed, but has now been removed. (9) Hypertension Status: Chronic Assessment & Plan: She had been on losartan and amlodipine, which have been held since admit. Her BPs have been in low normal to normal range. Exam Sepsis Risk: No Definite Risk Problem Qualifiers (1) Change in mental status: Altered mental status type: delirium Qualified Codes: R41.0 - Disorientation, unspecified LEANDRO PADRON DO Jan 24, 2019 10:05
[2019-01-24 11:13] VITALS: BP 110/59
--- NOTE | 2019-01-24 13:46 | NUR ---
Physical Therapy Impression PT lauren completed. Pt notes that she feels she is at her baseline and felt that she was "doing pretty good". Pt encouraged to have assistance when attempting stairs at home and PT recommends [facility] PT services to gain strength and balance in order to improve safety skills. Physical Therapy Goals 1. Pt to joshua up/down 12 steps with rail and SBA/CGA 2. Pt to be modified indep for bed mobility and sup<>sit trnsfrs 3. Pt to be Modified indep/SBA for sit to/from stand transfers 4. Pt to be SBA/CGA for ambulation x 100' using rail in hallway or hand held assist for balance. Patient's Goals
[2019-01-24 15:30] VITALS: BP 158/59
[2019-01-24 20:30] VITALS: BP 139/70
[2019-01-24] MEDS: MELATONIN 3 MG TAB PO SCH (20:54)
[2019-01-24 23:05] VITALS: BP 145/63
[2019-01-25 02:54] VITALS: BP 113/62
[2019-01-25 06:27] VITALS: BP 145/71
[2019-01-25 07:53] LABS: PLATELET COUNT, AUTOMATED 191 K/uL (150-450)
[2019-01-25] MEDS: MAGNESIUM OXIDE 400 MG TAB PO SCH ×2 (08:20→20:42)
[2019-01-25] MEDS: FOLIC ACID 1 MG TAB PO SCH (08:20)
[2019-01-25] MEDS: THIAMINE HCL 200 MG/2 ML INJ IVP SCH (08:21)
[2019-01-25 11:38] VITALS: BP 148/62
--- NOTE | 2019-01-25 12:50 | Hospitalist Progress Note ---
Subjective Progress Notes Subjective No new complaints. Physical Exam Vital Signs Date Time Temp Pulse Resp B/P (MAP) Pulse Ox O2 Delivery O2 Flow Rate FiO2 01/25/19 11:38 98.2 61 18 148/62 (90) 96 Room Air 01/22/19 07:40 1.0 Intake and Output 01/25/19 07:02 Intake Total 780 ml Balance 780 ml Intake Oral 780 ml # Voids 11 # Bowel Movements 1 General Appearance: Alert, Awake, No Acute Distress Neuro: No Gross deficits Cardiovascular: Regular Rate and Rhythm Respiratory: Clear to Auscultation GI: Soft and Non-Tender Extremities: Warm, Perfused Psych: Appropriate Mood & Affect Result Diagram: 01/25/1972901/25/19729 Assessment and Plan Problems: (1) Hyponatremia Status: Chronic Assessment & Plan: She did present with a sodium of 104. She was treated intermittently with fluids and DDAVP. She has received no specific treatment over the last few days, and her sodium is beginning to normalize. (2) Change in mental status Status: Acute Assessment & Plan: Secondary to chronic alcoholism and hyponatremia. Her mentation has been gradually improving. (3) Hypomagnesemia Status: Acute Assessment & Plan: Resolved with supplementation. (4) Hypokalemia Status: Acute Assessment & Plan: Resolved with supplementation. (5) QT prolongation Status: Acute Assessment & Plan: Resolved. (6) Alcoholism Status: Chronic Assessment & Plan: The patient drinks at least 12 beers daily. She was on CIWA protocol, but is no longer requiring treatment. She is on thiamine replacement. The importance of abstinence from alcohol including beer was discussed in depth with the patient. (7) Urinary tract infection Status: Acute Assessment & Plan: Culture grew multiple colony types from the urine on 01/13. The culture from 01/17 has no growth to date. She is afebrile and has a normal WBC count. She was initially on Keflex 500mg BID, which has been stopped (8) Decubitus ulcer Status: Acute Assessment & Plan: R buttock. Keep clean and protected. Romeo initially placed, but has now been removed. (9) Hypertension Status: Chronic Assessment & Plan: She had been on losartan and amlodipine, which have been held since admit. Her BPs have been in low normal to normal range. Time Spent on Plan of Care: < 30 min Exam Sepsis Risk: No Definite Risk Problem Qualifiers (1) Change in mental status: Altered mental status type: delirium Qualified Codes: R41.0 - Disorientation, unspecified RHYS AMIN MD Jan 25, 2019 12:50
[2019-01-25 15:22] VITALS: BP 155/69
[2019-01-25 18:35] VITALS: BP 184/90
[2019-01-25] MEDS: MELATONIN 3 MG TAB PO SCH (20:42)
[2019-01-25 23:53] VITALS: BP 157/86
[2019-01-26 04:46] VITALS: BP 136/72
[2019-01-26 06:54] VITALS: BP 119/66
[2019-01-26] MEDS: MAGNESIUM OXIDE 400 MG TAB PO SCH (09:11)
[2019-01-26] MEDS: THIAMINE HCL 200 MG/2 ML INJ IVP SCH (09:11)
[2019-01-26] MEDS: FOLIC ACID 1 MG TAB PO SCH (09:11)
--- NOTE | 2019-01-26 09:58 | Hospitalist Depart ---
Discharge Summary Reason for Hosp/Final Diag: (1) Hyponatremia Status: Chronic Hospital Course & Plan: She did present with a sodium of 104. She was treated intermittently with fluids and DDAVP. She has received no specific treatment over the last few days, and her sodium is beginning to normalize. (2) Change in mental status Status: Acute Hospital Course & Plan: Secondary to chronic alcoholism and hyponatremia. Her mentation has been gradually improving. (3) Hypomagnesemia Status: Acute Hospital Course & Plan: Resolved with supplementation. (4) Hypokalemia Status: Acute Hospital Course & Plan: Resolved with supplementation. (5) QT prolongation Status: Acute Hospital Course & Plan: Resolved. (6) Alcoholism Status: Chronic Hospital Course & Plan: The patient drinks at least 12 beers daily. She was on CIWA protocol, but is no longer requiring treatment. She was placed on thiamine replacement. The importance of abstinence from alcohol including beer was discussed in depth with the patient. (7) Urinary tract infection Status: Acute Hospital Course & Plan: Culture grew multiple colony types from the urine on 01/13. The culture from 01/17 has no growth to date. She is afebrile and has a normal WBC count. She was initially on Keflex 500mg BID, which has been stopped (8) Decubitus ulcer Status: Acute Hospital Course & Plan: R buttock. Keep clean and protected. Romeo initially placed, but has now been removed. (9) Hypertension Status: Chronic Hospital Course & Plan: She had been on losartan and amlodipine, which have been held since admit. Her BPs have been in low normal to normal range. Her blood pressures have slightly increased. Will stop her losartan, since there is small chance of hyponatremia. She will continue amlodipine. She will follow up with PCP in one week for blood pressure. Departure Latest Vital Signs Vital Signs 01/22/19 01/26/19 07:40 06:54 Temp 99.0 Pulse 85 Resp 15 B/P (MAP) 119/66 (83) Pulse Ox 91 O2 Delivery Room Air O2 Flow Rate 1.0 Weight (Pounds): 155 Result Diagram: 01/25/19 0730 01/26/19 0810 Condition: Improved Discharge: Home, Home Health PT/OT Follow Up For: PT For Strengthening, PT Evaluation and Treat Discharge Instructions Home Meds Active Scripts Amlodipine Besylate (AMLODIPINE BESYLATE) 10 Mg Tablet, 1 TAB PO QDAY, #90 TAB 3 Refills Prov:MARTÍN PEÑA MD 07/10/18 Reported Medications Magnesium Oxide (MAGNESIUM OXIDE) 400 Mg Tablet, 400 MG PO BID 01/17/19 Mu-Vits-Min Th/Lycopene/Lutein (CENTRUM SILVER TABLET) 1 Each Tablet, 1 EACH PO DAILY 01/17/19 Calcium Carbonate/Vitamin D3 (CALCIUM + VITAMIN D TABLET) 1 Each Tablet, 1 EACH PO DAILY 01/17/19 Thiamine HCl (B-1) 100 Mg Tablet, 1 TAB PO DAILY 01/17/19 Folic Acid (FOLIC ACID) 1 Mg Tablet, 1 MG PO QDAY, TAB 01/17/19 Discontinued Scripts Sodium Chloride (SODIUM CHLORIDE) 1 Gm Tab, 1 GM PO QDAY for 14 Days, #14 TAB Prov:AGUSTO DUKE DO 01/13/19 Cephalexin Monohydrate (CEPHALEXIN) 500 Mg Cap, 500 MG PO BID for 7 Days, #14 CAP 0 Refills Prov:AGUSTO DUKE DO 01/13/19 Losartan Potassium (LOSARTAN POTASSIUM) 100 Mg Tablet, 100 MG PO QDAY, #90 TAB 3 Refills Prov:MARTÍN PEÑA MD 07/10/18 Diet: Regular Activity: As Tolerated Special Instructions: Home Health PT for strengthing Do not drink alcohol. Follow up with Dr. Peña in one week. 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
--- NOTE | 2019-01-26 10:03 | NUR ---
Occupational Therapy Impression Initial OT evaluation completed. Pt reports being at baseline and ready to discharge home. Independent ADLs. Ready for discharge home when medically appropriate. Occupational Therapy Goals Patient's Goal
--- NOTE | 2019-01-26 10:23 | NUR ---
Face to Face, Discharge Summary, and PT/OT Notes given to Helen from [facility] as she was rounding on the floor.
[2019-01-26] MEDS ORDERED: THIAMINE HCL 100 MG TAB PO SCH (11:00)
[2019-01-26 11:37] VITALS: BP 134/75
--- NOTE | 2019-01-26 13:32 | NUR ---
PHYSICAL THERAPY INFORMATION TRANSFER SHEET BED MOBILITY: Independent TRANSFERS: Independent GAIT: 100 ' with Railing instead of assistive device; and Standby Assistance/CGA Weightbearing Status: no restrictions STAIRS: 4 with rail and SBA/CGA EXERCISES: Verbalizes Needs: Yes Understands Directions Yes Cooperative: Yes Family Teaching: Yes Physical Therapy Comment: Pt encouraged to have family present initially when she completes stairs to her room in the basement.
[2019-01-29] MEDS ORDERED: THIAMINE HCL 100 MG TAB PO SCH (09:00)
== END 2019-01-26 13:05 | disposition home health service (06) | DRG 641 ==
LOC: ER 20:18 → ICU 21:57 → MED 01-23 09:30
PROVIDERS: ADMIT Internal Medicine; ATTEND Internal Medicine
DX: E87.1 Hypo-osmolality and hyponatremia (principal); N39.0 Urinary tract infection, site not specified; E83.42 Hypomagnesemia; E87.6 Hypokalemia; I45.81 Long QT syndrome; E78.5 Hyperlipidemia, unspecified; F10.20 Alcohol dependence, uncomplicated; I10 Essential (primary) hypertension; L89.312 Pressure ulcer of right buttock, stage 2; Z72.0 Tobacco use; Z91.81 History of falling; Z79.899 Other long term (current) drug therapy; Z85.810 Personal history of malignant neoplasm of tongue
CPT/HCPCS: 36415; 70450; 70551; 71045; 73522; 80320; 81001; 82040; 82140; 82247; 82310; 82374; 82435; 82565; 82607; 82746; 82803; 82947; 83605; 83735; 83930; 83935; 84075; 84100; 84132; 84155; 84295; 84300; 84450; 84460; 84484; 84520; 85025; 85610; 86140; 87040; 87088; 93005; 96365; 96366; 97162; 97165; 99291; J2060; J2597; J3411; J3475; J3480; J7030; J7060; J7070

== ENCOUNTER → 2019-01-17 | Outpatient (CLI) | payer MEDICARE ==
[~2019-01-17] MED LIST changes: +CALC-852 PO; +FOLI-68 PO; +MAGN400T36 PO; +MULT-27 PO; +THIA100T6 PO
[2019-01-19 10:36] VITALS: BMI 24.3
== END ==
LOC: AMB 19:48
PROVIDERS: ATTEND Nurse Practitioner
DX: R53.1 Weakness (principal); R15.9 Full incontinence of feces; R32 Unspecified urinary incontinence
CPT/HCPCS: A0425; A0427

== ENCOUNTER 2019-01-29 11:22 | Inpatient (IN) | payer MEDICARE, BC ==
[~2019-01-29] VITALS: Ht 170.2 cm; Wt 63.3 kg
[~2019-01-29 11:22] MED LIST changes: +CALC-852 PO; +FOLI-68 PO; +MAGN400T36 PO; +MULT-27 PO; +THIA100T6 PO
[2019-01-29] MEDS ORDERED: fentaNYL CITR 100 MCG/2 ML AMP ONE (11:45)
--- NOTE | 2019-01-29 11:49 | EKG ---
FACILITY: [facility] PATIENT NAME: KELLY VENCES : [id number] MR: [id number] V: [id number] EXAM DATE: ORDERING PHYSICIAN: TYLER PAN TECHNOLOGIST: RUBI Test Reason : FALL Blood Pressure : / mmHG Vent. Rate : 077 BPM Atrial Rate : 077 BPM P-R Int : 140 ms QRS Dur : 094 ms QT Int : 440 ms P-R-T Axes : 079 073 078 degrees QTc Int : 497 ms Normal sinus rhythm Prolonged QT Abnormal ECG When compared with ECG of 18-JAN-2019 10:04, No significant change was found Confirmed by Ladarius Oviedo ([id number] on 01/29/2019 10:38:02 PM Referred By: MAXIM Confirmed By:Ladarius Knapp
[2019-01-29 11:53] LABS: PLATELET COUNT, AUTOMATED 303 K/uL (150-450)
--- NOTE | 2019-01-29 11:54 | ER Report ---
History and Physical Time Seen By MD: 11:25 Hx. of Stated Complaint: patient fell at home injuring the right hip. pelvic binder in place. No LOC, no C-spine tenderness HPI/ROS CHIEF COMPLAINT: Fall, hip deformity HISTORY OF PRESENT ILLNESS: 63-year-old female lives at home with family, states that she was walking around her home just prior to arrival when she lost her balance. She fell and was unable to get up. Family called EMS. Patient complains of right hip pain. She denies hitting her head or other extremities. She has continued sensation in her foot. She has had no prior orthopedic surgeries. She did not have preceding or subsequent headache, chest pain, trouble breathing. She denies recent alcohol use and states she smokes one cigarette per month. She has had no recent change in medications. Recently admitted for hyponatremia, altered mental status. REVIEW OF SYSTEMS: Constitutional: No fever, no chills. Eyes: No discharge. ENT: No sore throat. Cardiovascular: No chest pain, no palpitations. Respiratory: No cough, no shortness of breath. Gastrointestinal: No abdominal pain, no vomiting. Genitourinary: no dysuria Musculoskeletal: above Skin: No rashes. Neurological: No headache. Remainder of the 14 system rev: Yes Allergies: Coded Allergies: No Known Drug Allergies (Unverified , 10/12/14) Home Meds Active Scripts Amlodipine Besylate (AMLODIPINE BESYLATE) 10 Mg Tablet, 1 TAB PO QDAY, #90 TAB 3 Refills Prov:MARTÍN GRAY MD 07/10/18 Reported Medications Magnesium Oxide (MAGNESIUM OXIDE) 400 Mg Tablet, 400 MG PO BID 01/17/19 Mu-Vits-Min Th/Lycopene/Lutein (CENTRUM SILVER TABLET) 1 Each Tablet, 1 EACH PO DAILY 01/17/19 Calcium Carbonate/Vitamin D3 (CALCIUM + VITAMIN D TABLET) 1 Each Tablet, 1 EACH PO DAILY 01/17/19 Thiamine HCl (B-1) 100 Mg Tablet, 1 TAB PO DAILY 01/17/19 Folic Acid (FOLIC ACID) 1 Mg Tablet, 1 MG PO QDAY, TAB 01/17/19 Discontinued Scripts Sodium Chloride (SODIUM CHLORIDE) 1 Gm Tab, 1 GM PO QDAY for 14 Days, #14 TAB Prov:AGUSTO DUKE DO 01/13/19 Cephalexin Monohydrate (CEPHALEXIN) 500 Mg Cap, 500 MG PO BID for 7 Days, #14 CAP 0 Refills Prov:AGUSTO DUKE DO 01/13/19 Losartan Potassium (LOSARTAN POTASSIUM) 100 Mg Tablet, 100 MG PO QDAY, #90 TAB 3 Refills Prov:MARTÍN GRAY MD 07/10/18 Reviewed Nurses Notes: Yes Old Medical Records Reviewed: Yes Hx Smoking: Yes Smoking Status: Current: Every Day Smoker Hx Substance Use Disorder: No Hx Alcohol Use: Yes (OCC) Constitutional Vital Sign - Last 24 Hours 01/29/19 01/29/19 01/29/19 01/29/19 11:22 11:23 11:25 11:30 Temp 98.3 Pulse 75 76 Resp 16 B/P (MAP) 127/98 133/73 (93) 132/64 (86) Pulse Ox 100 98 O2 Delivery Room Air 01/29/19 01/29/19 01/29/19 01/29/19 11:42 11:45 12:00 12:02 Pulse 75 72 Resp 22 16 B/P (MAP) 149/69 (95) 140/63 (88) Pulse Ox 100 99 01/29/19 01/29/19 01/29/19 01/29/19 12:15 12:20 12:30 12:40 Pulse 90 77 Resp 15 14 B/P (MAP) 142/63 (89) 165/62 (96) Pulse Ox 99 97 01/29/19 01/29/19 01/29/19 01/29/19 12:45 13:00 13:15 13:20 Pulse 74 72 Resp 8 9 B/P (MAP) 147/79 (101) 139/58 (85) 136/60 (85) Pulse Ox 100 99 01/29/19 01/29/19 01/29/19 01/29/19 13:30 13:40 13:45 14:00 Pulse 70 74 Resp 10 11 B/P (MAP) 143/65 (91) 143/68 (93) 152/60 (90) Pulse Ox 99 100 Physical Exam General Appearance: The patient is alert, has no immediate need for airway protection and no signs of toxicity. Eyes: Pupils equal and round no pallor or injection. ENT, Mouth: Mucous membranes are moist. Respiratory: There are no retractions, lungs are clear to auscultation. Cardiovascular: Regular rate and rhythm. no m/r/g Gastrointestinal: Abdomen is soft and non tender, no masses, bowel sounds normal. Neurological: alert, grossly nl Skin: Warm and dry, no rashes. Musculoskeletal: Neck is supple non tender. right lower extremity, external rotated, shortened pulses 2+ DP, PT, nl sensation distally, able to wiggle toes DIFFERENTIAL DIAGNOSIS: After history and physical exam differential diagnosis was considered for hip fracture, pelvic fracture, hip dislocation, or other emergent cause/result of fall Medical Decision Making Data Points Result Diagram: 01/29/19 1120 01/29/19 1120 Laboratory Hematology Test 01/29/19 11:20 White Blood Count 6.2 k/uL (4.5-11.0) Red Blood Count 3.64 M/uL (4.17-5.56) L Hemoglobin 12.9 g/dL (12.0-16.0) Hematocrit 37.2 % (34.0-47.0) Mean Corpuscular Volume 102.0 fL (80.0-96.0) H Mean Corpuscular Hemoglobin 35.5 pg (26.0-33.0) H Mean Corpuscular Hemoglobin Concent 34.8 g/dL (32.0-36.0) Red Cell Distribution Width 13.2 % (11.5-14.5) Platelet Count 303 K/uL (150-450) Mean Platelet Volume 7.6 fL (7.2-11.1) Neutrophils (%) (Auto) 74.8 % (39.4-72.5) H Lymphocytes (%) (Auto) 16.8 % (17.6-49.6) L Monocytes (%) (Auto) 6.5 % (4.1-12.4) Eosinophils (%) (Auto) 0.9 % (0.4-6.7) Basophils (%) (Auto) 1.0 % (0.3-1.4) Nucleated RBC Relative Count (auto) 0.0 /100WBC Neutrophils # (Auto) 4.6 K/uL (2.0-7.4) Lymphocytes # (Auto) 1.0 K/uL (1.3-3.6) L Monocytes # (Auto) 0.4 K/uL (0.3-1.0) Eosinophils # (Auto) 0.1 K/uL (0.0-0.5) Basophils # (Auto) 0.1 K/uL (0.0-0.1) Nucleated RBC Absolute Count (auto) 0.00 K/uL Peripheral Blood Smear No Y/N Chemistry Test 01/29/19 11:20 Sodium Level 127 mmol/L (137-145) Potassium Level 3.4 mmol/L (3.5-5.0) Chloride Level 86 mmol/L (98-107) Carbon Dioxide Level 25 mmol/L (22-31) Blood Urea Nitrogen 7 mg/dl (7-18) Creatinine 0.70 mg/dl (0.52-1.04) Glomerular Filtration Rate Calc > 60.0 Random Glucose 171 mg/dl (75-110) Lactate 3.1 mmol/L (0.7-2.1) Calcium Level 9.4 mg/dl (8.4-10.2) Total Bilirubin 1.1 mg/dl (0.2-1.3) Aspartate Amino Transf (AST/SGOT) 72 U/L (0-35) Alanine Aminotransferase (ALT/SGPT) 65 U/L (0-56) Alkaline Phosphatase 143 U/L (0-126) Total Protein 6.7 g/dl (6.3-8.2) Albumin 3.6 g/dl (3.5-5.0) Coagulation Test 01/29/19 11:20 Prothrombin Time 14.4 seconds (12.0-14.4) Prothromb Time International Ratio 1.12 Activated Partial Thromboplast Time 40 seconds (23-35) Toxicology Test 01/29/19 11:20 Serum Alcohol < 10 mg/dl Urinalysis Test 01/29/19 12:43 Urine Color Straw Urine Clarity Clear Urine pH 7.0 pH (4.8-9.5) Urine Specific [place] 1.001 Urine Protein Negative mg/dL (NEGATIVE) Urine Glucose (UA) Negative mg/dL (NEGATIVE) Urine Ketones Negative mg/dL (NEGATIVE) Urine Blood Negative (NEGATIVE) Urine Nitrite Negative (NEGATIVE) Urine Bilirubin Negative (NEGATIVE) Urine Urobilinogen Negative mg/dL (0.2-1.9) Urine Leukocyte Esterase Moderate (NEGATIVE) Urine RBC <1 /HPF (0-2/HPF) Urine WBC 5 /HPF (0-5/HPF) Urine Squamous Epithelial Cells Few /LPF (NONE-FEW) Urine Bacteria Few /HPF (NONE-FEW) Urine Mucus None /HPF (NONE-FEW) EKG/Imaging EKG Interpretation 12 lead EKG: Rhythm: normal sinus rhythm [place]: normal QRS: normal ST segments: NSR with borderline prolonged qt Monitor Interpretation: Normal Sinus Rhythm ED Course/Re-evaluation ED Course 63 f presents with r hip deformity after fall, concerning for fx. Xray shows r hip intratrochanteric fx. Of note, pt stated she had no prior orthopedic surgeries, but has left hip daina arthroplasty. She does not know where/when this was performed I consulted Dr. Purcell for admission. He will plan operation for Saturday. Cecilia ent will be admitted to hospitalist for management of other chronic medical problems including complications of chronic alcoholism, hyponatremia. I performed femoral nerve block with good relief. There is no evidence of other injuries. Procedure Procedure: Femoral nerve block Indication: Intertrochanteric fracture refractory pain Consent: Verbal consent after discussion of risks and benefits Preparation: Standard sterile preparation performed Procedure: Using sterile ultrasound guidance, 6 mL's of 0.5% bupivacaine was injected both at the right femoral proximal nerve, as well as the fascia erich. There were no complications. Patient tolerated this well with moderate relief. Decision to Disposition Date: Jan 29, 2019 Decision to Disposition Time: 12:30 Depart Departure Latest Vital Signs Vital Signs Date Time Temp Pulse Resp B/P (MAP) Pulse Ox O2 Delivery O2 Flow Rate FiO2 01/29/19 14:00 74 11 152/60 (90) 100 01/29/19 11:23 98.3 Room Air Core Temperature (Celsius): 36.1 Impression: Primary Impression: Intertrochanteric fracture Condition: Improved Disposition: Admitted from ER Referrals: MARTÍN GRAY MD (PCP) Problem Qualifiers Primary Impression: Intertrochanteric fracture Encounter type: initial encounter Fracture type: closed Fracture alignment: displaced Laterality: right Qualified Codes: S72.141A - Displaced intertrochanteric fracture of right femur, initial encounter for closed fracture TYLER PAN MD Jan 29, 2019 11:54
[2019-01-29 11:59] LABS: INR 1.12
[2019-01-29] MEDS ORDERED: fentaNYL CITR 100 MCG/2 ML AMP IVP ONE (12:30)
--- NOTE | 2019-01-29 13:08 | RADIOLOGY IMAGING REPORT ---
FACILITY: [facility] - [place] PATIENT NAME: Arely Mac : 1955 MR: [id number] V: [id number] EXAM DATE: ORDERING PHYSICIAN: TYLER PAN TECHNOLOGIST: Location: [facility] [place] Patient: Arely Mac : 1955 Visit/Account:[id number] Date of Sevice: 01/29/2019 Exam type: HIP RIGHT History: pre op, right hip pain Comparison: January 17, 2019. Findings: AP view the pelvis and crosstable lateral view of the right hip... There is a A comminuted intratroch anteric fracture of the right hip with slight superior placement of the right femoral shaft. This wa s not present on the prior study. The hip arthroplasty appears in good anatomic alignment IMPRESSION: 1. Comminuted intratrochanteric fracture of the right hip with slight superior displacement of the r ight femoral shaft Report Dictated By: Carrie Brandt MD at 01/29/2019 12:58 PM Report E-Signed By: Carrie Brandt MD at 01/29/2019 1:00 PM WSN:[email or web address]
--- NOTE | 2019-01-29 13:08 | RADIOLOGY IMAGING REPORT ---
FACILITY: [facility] PATIENT NAME: Arely Mac : 1955 MR: [id number] V: [id number] EXAM DATE: ORDERING PHYSICIAN: TYLER PAN TECHNOLOGIST: Location: [facility] [place] Patient: Arely Mac : 1955 Visit/Account:[id number] Date of Sevice: 01/29/2019 Exam type: CHEST SINGLE AP History: pre op Comparison: January 17, 2019. Findings: The irregular density in the left lung base identified on the prior study is much less prominent and likely represents a superimposed shadow. There is no evidence of acute appearing infiltrates, pleura l effusions or pulmonary edema. The cardiac silhouette is normal in size. There are old left-sided rib fractures IMPRESSION: 1. No acute cardiopulmonary process is seen Report Dictated By: Carrie Brandt MD at 01/29/2019 1:00 PM Report E-Signed By: Carrie Brandt MD at 01/29/2019 1:02 PM WSN:[email or web address]
[2019-01-29] MEDS ORDERED: FLUSH 10 ML SYR IVP PRN (14:30)
[2019-01-29] MEDS ORDERED: ACETAMINOPHEN 325 MG TAB PO PRN (14:30)
--- NOTE | 2019-01-29 15:16 | History & Physical ---
History of Present Illness Chief Complaint Hip pain History of Present Illness 63F presented after fall with R hip pain. PMHx significant for HTN, hyponatremia and alcohol abuse. Fell today prior to presenting while with family. Was unable to get up so was brought to ER for further evaluation. Found to have intratrochanteric hip Fx and admitted for repair on Saturday. Has not been drinking since recent discharge on 01.26. History Problems: (1) Tobacco abuse Status: Chronic (2) Alcoholism Status: Chronic (3) Hyponatremia Status: Chronic Home Meds Active Scripts Amlodipine Besylate (AMLODIPINE BESYLATE) 10 Mg Tablet, 1 TAB PO QDAY, #90 TAB 3 Refills Prov:MARTÍN GRAY MD 07/10/18 Reported Medications Magnesium Oxide (MAGNESIUM OXIDE) 400 Mg Tablet, 400 MG PO BID 01/17/19 Mu-Vits-Min Th/Lycopene/Lutein (CENTRUM SILVER TABLET) 1 Each Tablet, 1 EACH PO DAILY 01/17/19 Calcium Carbonate/Vitamin D3 (CALCIUM + VITAMIN D TABLET) 1 Each Tablet, 1 EACH PO DAILY 01/17/19 Thiamine HCl (B-1) 100 Mg Tablet, 1 TAB PO DAILY 01/17/19 Folic Acid (FOLIC ACID) 1 Mg Tablet, 1 MG PO QDAY, TAB 01/17/19 Discontinued Scripts Sodium Chloride (SODIUM CHLORIDE) 1 Gm Tab, 1 GM PO QDAY for 14 Days, #14 TAB Prov:AGUSTO DUKE DO 01/13/19 Cephalexin Monohydrate (CEPHALEXIN) 500 Mg Cap, 500 MG PO BID for 7 Days, #14 CAP 0 Refills Prov:AGUSTO DUKE DO 01/13/19 Losartan Potassium (LOSARTAN POTASSIUM) 100 Mg Tablet, 100 MG PO QDAY, #90 TAB 3 Refills Prov:MARTÍN GRAY MD 07/10/18 Allergies: Coded Allergies: No Known Drug Allergies (Unverified , 10/12/14) Patient History: Cardiac arrest MOTHER, , Age:67 FH: back pain BROTHER OR SISTER FH: diabetes mellitus BROTHER OR SISTER Hx Smoking: Yes Smoking Status: Current: Every Day Smoker Hx Alcohol Use: Yes (OCC) Social Drug Use: Never Review of Systems All Systems Reviewed/Normal: Yes, Except as Noted Cardiovascular: No Chest Pain Respiratory: No Shortness of Breath Musculoskeletal: Pain Exam Vital Signs Vital Signs Date Time Temp Pulse Resp B/P (MAP) Pulse Ox O2 Delivery O2 Flow Rate FiO2 01/29/19 14:00 74 11 152/60 (90) 100 01/29/19 11:23 98.3 Room Air General Appearance: Alert, Awake, No Acute Distress Neuro: No Gross deficits Cardiovascular: Normal Rhythm & Peripheral Pulses Respiratory: No Respiratory Distress GI: Abd Soft and Non-Tender Musculoskeletal: Other (R hip pain) Extremities: Soft and Non Tender, Warm, Pulses, Perfused Medical Decision Making Data Points Result Diagram: 01/29/19 1120 01/29/19 1120 EKG / Imaging EKG Interpretation NSR prolonged QTc Assessment and Plan Problems: (1) Hip fracture Assessment & Plan: Ortho consulted out of ER. Patient has no cardiac history, respiratory status ok despite tobacco abuse. Has not been drinking since previous hospitalization. She is an acceptable surgical risk. Anticipate repair on Saturday. (2) Tobacco abuse Status: Chronic Assessment & Plan: Nicotine replacement PRN if necessary. (3) Alcoholism Status: Chronic Assessment & Plan: No EtOH since discharge 07.08 (4) Hyponatremia Status: Chronic Assessment & Plan: Near her historic sodium level. Previously was labile with small sodium changes, will monitor. Venous Thromboembolism Antithrombotics Is Pt On Any Antithrombotics?: No (SCD prior to surgery, ) Exam Sepsis Risk: No Definite Risk COLORADO KASSIDY HEART DO Jan 29, 2019 15:16
[2019-01-29 16:01] VITALS: BP 120/68
[2019-01-29] MEDS: oxyCODON/ACET (*)5/325MG (CII) 1 TAB TAB PO PRN (16:14)
[2019-01-29] MEDS ORDERED: HYDROmorphone HCL 2 MG/ML SDV IVP PRN (18:15)
[2019-01-29 18:55] VITALS: BP 109/58
[2019-01-30] VITALS (21 sets, daily range): BP systolic 88–142; BP diastolic 36–90; Ht 170.2 cm; Wt 63.3 kg
[2019-01-30] MEDS: oxyCODON/ACET (*)5/325MG (CII) 1 TAB TAB PO PRN ×3 (00:12→13:25)
[2019-01-30] MEDS: amLODIPine BESYL(*) 5 MG TAB PO SCH (08:49)
[2019-01-30] MEDS: THIAMINE HCL 100 MG TAB PO SCH (09:00)
[2019-01-30] MEDS: FOLIC ACID 1 MG TAB PO SCH (09:00)
[2019-01-30] MEDS ORDERED: FAMOTIDINE 20 MG TAB PO ONE (09:55)
[2019-01-30] MEDS ORDERED: NS(*) 0.9% 1000 ML BAG 1,000 ML IV PRN (10:05)
[2019-01-30] MEDS: KCL (*) 20 MEQ/100 ML PREMIX 100 ML IV SCH ×2 (10:30→12:37)
--- NOTE | 2019-01-30 12:41 | Hospitalist Progress Note ---
Subjective Progress Notes Subjective The patient has no new complaints. Her pain is controlled. Physical Exam Vital Signs Date Time Temp Pulse Resp B/P (MAP) Pulse Ox O2 Delivery O2 Flow Rate FiO2 01/30/19 11:29 97.8 74 18 126/47 (73) 95 Nasal Cannula 2.0 Intake and Output 01/30/19 07:02 Intake Total 240 ml Output Total 2050 ml Balance -1810 ml Intake Oral 240 ml Output Urine Total 2050 ml General Appearance: Alert, Awake, No Acute Distress Neuro: No Gross deficits Eyes: PERRLA Cardiovascular: Regular Rate and Rhythm GI: Soft and Non-Tender Extremities: Warm, Perfused Psych: Appropriate Mood & Affect Result Diagram: 01/29/19 1120 01/30/19 0718 Monitor Interpretation: Normal Sinus Rhythm Assessment and Plan Problems: (1) Hip fracture Assessment & Plan: Dr. Purcell was consulted through the ER and plans to take the patient to OR this afternoon. The patient has no cardiac history. Her initial EKG shows mild QT prolongation likely due to hypokalemia. Will replace her potassium and repeat an EKG prior to surgery. She is able to do stairs without a problem. Her respiratory status is stable with normal CXR. She is a smoker so likely has some COPD. She is not on oxygen at baseline. The patient has not been drinking since previous hospitalization. She is an acceptable surgical risk. (2) Tobacco abuse Status: Chronic Assessment & Plan: Nicotine replacement PRN if necessary. (3) Alcoholism Status: Chronic Assessment & Plan: No EtOH since discharge 01/26. (4) Hyponatremia Status: Chronic Assessment & Plan: The patient had hyponatremia for years due to chronic alcohol abuse. She recently was admitted with a sodium level of 104. Today her sodium is markedly improved at 130 which is the highest her level has been since September of 2017. She continues to abstain from alcohol. Time Spent on Plan of Care: < 30 min Exam Sepsis Risk: No Definite Risk RHYS AMIN MD Jan 30, 2019 12:41
[2019-01-30] MEDS ORDERED: NORMOSOL R SOLN(*) 1000 ML BAG 1,000 ML IV ONE (13:00)
[2019-01-30] MEDS ORDERED: ROPIVACAINE 0.2% 20 ML VIAL ONE (14:26)
--- NOTE | 2019-01-30 15:01 | EKG ---
FACILITY: [facility] - [place] PATIENT NAME: KELLY VENCES : [id number] MR: [id number] V: [id number] EXAM DATE: ORDERING PHYSICIAN: RHYS AMIN TECHNOLOGIST: Test Reason : pre-op Blood Pressure : / mmHG Vent. Rate : 075 BPM Atrial Rate : 075 BPM P-R Int : 144 ms QRS Dur : 074 ms QT Int : 410 ms P-R-T Axes : 068 052 060 degrees QTc Int : 457 ms Normal sinus rhythm Normal ECG When compared with ECG of 29-JAN-2019 11:36, QT no longer prolonged Confirmed by RHYS CAMEJO ([id number]) on 01/30/2019 5:50:35 PM Referred By: Confirmed By:RHYS CAMEJO
[2019-01-30] MEDS ORDERED: fentaNYL CITR 100 MCG/2 ML AMP ONE ×3 (15:10→17:28)
[2019-01-30] MEDS ORDERED: PROPOFOL EMUL(*) 10MG/ML 20 ML 20 ML ONE (15:11)
[2019-01-30] MEDS ORDERED: LIDOCAINE MPF 1% 5 ML VIAL ONE (15:11)
[2019-01-30] MEDS ORDERED: SUCCINYLCHOL CHL 100MG/5ML SYR IVP ONE (15:13)
[2019-01-30] MEDS ORDERED: ceFAZolin(*) 1 GM VIAL 1 GM in NS(*) 0.9% 100 ML MINI-BAG 100 ML IVPB ONE (15:15)
[2019-01-30] MEDS ORDERED: MIDAZOLAM 2 MG/2 ML VIAL IVP PRN (15:15)
[2019-01-30] MEDS ORDERED: DEXAMETHASONE SOD 4 MG/ML VIAL ONE (15:31)
[2019-01-30] MEDS ORDERED: ONDANSETRON 4 MG/2 ML VIAL ONE (15:35)
[2019-01-30] MEDS ORDERED: diphenhydrAMINE 25 MG CAP PO PRN (17:05)
[2019-01-30] MEDS ORDERED: ACETAMINOPHEN 500 MG TAB PO PRN (17:05)
[2019-01-30] MEDS ORDERED: MAGNESIUM HYDROXIDE* 30ML UDCP PO PRN (17:05)
[2019-01-30] MEDS ORDERED: KETOROLAC 30 MG/ML VIAL IVP PRN (17:05)
[2019-01-30] MEDS ORDERED: PROMETHAZINE 25 MG/ML 1 ML AMP IVP PRN (17:05)
[2019-01-30] MEDS ORDERED: FLUSH 10 ML SYR IVP PRN (17:05)
[2019-01-30] MEDS ORDERED: ONDANSETRON 4 MG/2 ML VIAL IVP PRN (17:05)
[2019-01-30] MEDS ORDERED: KCL/D5LR 20 MEQ/1000 ML PREMIX 1,000 ML IV PRN (17:05)
[2019-01-30] MEDS ORDERED: BISACODYL 10 MG SUPP PR PRN (17:05)
[2019-01-30] MEDS ORDERED: MAGNESIUM CITRATE 300 ML BTL PO PRN (17:05)
--- NOTE | 2019-01-30 17:21 | OPERATIVE REPORT 1 ---
EVENT DATE: January 30, 2019 SURGEON: Jan Purcell MD ANESTHESIOLOGIST: Edison Head MD ANESTHESIA: General. RESAW CARRIAGE OPERATOR: Luis Fernando Osborne PA-C PREOPERATIVE DIAGNOSIS Right intratrochanteric hip fracture. POSTOPERATIVE DIAGNOSIS Right intratrochanteric hip fracture. PROCEDURE PERFORMED Intramedullary nailing of the right hip. DESCRIPTION OF PROCEDURE Patient was brought to the operating room and placed on a traction table. She had her right leg placed in traction and left leg flexed, externally rotated, and abducted. Before we prepped her under fluoroscopy, we reduced the fracture by doing slight internal rotation and a bit of traction. We were able to almost anatomically reduce the fracture both on AP and on lateral. At this point, we prepped and draped in the normal sterile fashion and then placed a large curtain drape up over top. Once this was ready, we then made a small incision just proximal to the greater trochanter. Skin incised with a 15 blade down to subcutaneous tissue. Subcutaneous tissue bluntly dissected down to the greater trochanter. Once the greater trochanter was identified, a large pin was then placed into the trochanter under fluoroscopy, getting it down into the canal. Both checked on AP and lateral, had the K-wire in the canal perfectly aligned. We then reamed over top of it without any difficulty. We then placed a 125 short Gamma nail down without any difficulty. At this point, we checked AP and lateral to make sure it was in good position, which it was. We then placed the outrigger on board. We were able to place the wire guide into the outrigger at 125 degrees, made a small hole, placed the outrigger in, and drilled lateral to medial under fluoroscopy into the femoral head. We got a good position on the AP. On the lateral, it was slightly anterior, but I think it was completely appropriate. At this point, we reamed over top of it, and we measured a 95 femoral neck screw, placed the femoral neck screw without any difficulty, femoral head screw without any difficulty, and then we locked it down using the intramedullary locking system, locked the nibbler operator. At this point, checked AP and lateral and had good position. We then placed a distal screw in the nail using the static locking hole, drilled across it, measured it, and placed a 35 mm screw across it. We took off the outrigger and check AP, lateral, and oblique. Everything was in the anatomic position. We then closed using 2-0 Vicryl in the fascia and then 3-0 Monocryl, eric, and Adaptic 4 x 4's. Patient went to Recovery. No complications. MTDD
[2019-01-30] MEDS ORDERED: NICOTINE INH SYSTEM 10 MG/INH INH PRN (18:45)
[2019-01-30] MEDS ORDERED: NICOTINE CARTRIDGE 1 EA PO PRN (18:45)
--- NOTE | 2019-01-30 19:31 | RADIOLOGY IMAGING REPORT ---
FACILITY: [facility] - [place] PATIENT NAME: Arely Mac : 1955 MR: [id number] V: [id number] EXAM DATE: ORDERING PHYSICIAN: NUVIA MALAGON TECHNOLOGIST: Location: [facility] Patient: Arely Mac : 1955 Visit/Account:[id number] Date of Sevice: 01/30/2019 C-ARM FLUORO 1 HR HISTORY: RIGHT HIP GAMMA NAILING Intraoperative films. FINDINGS: Intraoperative films demonstrating intramedullary jessica and femoral neck compression screw traversing a previously seen and described comminuted intertrochanteric fracture. There is good anatomic alignme nt. Impression 1. Intraoperative films as described. Fluoroscopic time of 53.9 seconds. DAP [id number] Report Dictated By: Sukhi Appiah MD at 01/30/2019 7:24 PM Report E-Signed By: Sukhi Appiah MD at 01/30/2019 7:25 PM WSN:[email or web address]
[2019-01-31] MEDS: oxyCODON/ACET (*)5/325MG (CII) 1 TAB TAB PO PRN ×4 (00:11→18:10)
[2019-01-31] MEDS: ceFAZolin(*) 1 GM VIAL 1 GM in NS(*) 0.9% 100 ML MINI-BAG 100 ML IVPB SCH ×3 (00:11→15:38)
[2019-01-31 04:02] VITALS: BP 122/52
[2019-01-31 06:50] LABS: PLATELET COUNT, AUTOMATED 175 K/uL (150-450)
[2019-01-31] MEDS: THIAMINE HCL 100 MG TAB PO SCH (08:55)
[2019-01-31] MEDS: amLODIPine BESYL(*) 5 MG TAB PO SCH ×2 (08:55→09:00)
[2019-01-31] MEDS: FOLIC ACID 1 MG TAB PO SCH (08:55)
--- NOTE | 2019-01-31 10:14 | Hospitalist Progress Note ---
Subjective Progress Notes Subjective Patient her for hip fracture, no acute changes overnight. Patient Complains of: Neurological: Weakness; No: Syncope, Confusion Cardiovascular: No: Chest Pain, Palpitations Respiratory: No: Cough, Congestion, Shortness of Breath Gastrointestinal: No Nausea, No Vomiting Genitourinary: Other (bueno catheter) Musculoskeletal: Pain (surgical site pain); No: Sprain, Strain Physical Exam Vital Signs Date Time Temp Pulse Resp B/P (MAP) Pulse Ox O2 Delivery O2 Flow Rate FiO2 01/31/19 04:02 97.1 75 16 122/52 (75) 90 Nasal Cannula 2.0 Intake and Output 01/31/19 07:02 Intake Total 3091 ml Output Total 3375 ml Balance -284 ml Intake Oral 486 ml IV Total 1405 ml Other 1200 ml Output Urine Total 3350 ml Estimated Blood Loss 25 ml # Voids 2 General Appearance: Alert, Awake, No Acute Distress Neuro: No Gross deficits Eyes: PERRLA Cardiovascular: Regular Rate and Rhythm Respiratory: Clear to Auscultation Chest: No Tenderness GI: Soft and Non-Tender Result Diagram: 01/31/1933 01/31/1933 Assessment and Plan Problems: (1) Hip fracture Assessment & Plan: Surgery done by Dr. Purcell on 01/30. Patient started on aspirin 325 for anticoagulation. (2) Tobacco abuse Status: Chronic Assessment & Plan: Nicotine replacement PRN if necessary. (3) Alcoholism Status: Chronic Assessment & Plan: History of alcoholism, not requiring CIWA at this time. We are replacing Thiamine (4) Hyponatremia Status: Chronic Assessment & Plan: Chronic Hyponatremia secondary to alcoholism. Sodium level has remained stable on this admission Exam Sepsis Risk: No Definite Risk MARTÍN OVIEDO Jan 31, 2019 10:14
[2019-01-31] MEDS: ASPIRIN 325 MG ENTERIC COATED PO SCH (10:32)
[2019-01-31 10:58] VITALS: BP 111/96
[2019-01-31 12:08] VITALS: BP 97/58
--- NOTE | 2019-01-31 13:30 | NUR ---
Physical Therapy Impression PT eval complete. Pt performed 2 sit<>stand transfers from bed. On first attempt, Pt unable to ambulate due to pain. On second attempt, Pt performed stand pivot transfer from bed>chair using RW and CGA. Recommend short-term subacute rehab prior to returning home to daughter's home. Physical Therapy Goals 1. Mod I bed mobility. 2. Mod I transfers. 3. Mod I gait x 150' with RW. 4. Ascend/descend 1 flight of stairs SBA. Patient's Goals
[2019-01-31 15:43] VITALS: BP 108/51
[2019-01-31 19:11] VITALS: BP 129/59
[2019-02-01] MEDS: oxyCODON/ACET (*)5/325MG (CII) 1 TAB TAB PO PRN ×2 (02:55→09:26)
[2019-02-01 02:56] VITALS: BP 121/55
[2019-02-01 05:55] LABS: PLATELET COUNT, AUTOMATED 177 K/uL (150-450)
[2019-02-01 07:28] VITALS: BP 107/59
[2019-02-01] MEDS: FOLIC ACID 1 MG TAB PO SCH (09:21)
[2019-02-01] MEDS: ASPIRIN 325 MG ENTERIC COATED PO SCH (09:21)
[2019-02-01] MEDS: THIAMINE HCL 100 MG TAB PO SCH (09:21)
[2019-02-01] MEDS: amLODIPine BESYL(*) 5 MG TAB PO SCH (09:32)
--- NOTE | 2019-02-01 11:09 | Hospitalist Progress Note ---
Subjective Progress Notes Subjective She denies cp/sob. Physical Exam Vital Signs Date Time Temp Pulse Resp B/P (MAP) Pulse Ox O2 Delivery O2 Flow Rate FiO2 02/01/19 08:10 97 Nasal Cannula 2.5 02/01/19 07:28 97.7 94 20 107/59 (75) Intake and Output 02/01/19 07:02 Intake Total 1400 ml Output Total 2500 ml Balance -1100 ml Intake Oral 1400 ml Output Urine Total 2500 ml # Voids 7 General Appearance: Alert, Awake, No Acute Distress Neuro: Other (Forgetful to some events) Cardiovascular: Regular Rate and Rhythm Respiratory: Clear to Auscultation Extremities: No Edema Result Diagram: 02/01/1951702/01/19517 Assessment and Plan Problems: (1) Hip fracture Assessment & Plan: Surgery done by Dr. Purcell on 01/30. Patient on aspirin 325mg daily for blood clot prevention. She will need ECF before going home to improve strength. (2) Tobacco abuse Status: Chronic Assessment & Plan: Nicotine replacement PRN if necessary. (3) Alcoholism Status: Chronic Assessment & Plan: History of alcoholism, not requiring CIWA at this time. Thiamine and folate supplements daily. (4) Hyponatremia Status: Chronic Assessment & Plan: Chronic Hyponatremia secondary to low dietary intake and excessive beer intake. Sodium level has remained stable on this admission Exam Sepsis Risk: No Definite Risk NICHOLE ACOSTA MD Feb 01, 2019 11:09
[2019-02-01 14:08] VITALS: BP 154/76
[2019-02-01] MEDS ORDERED: CELECOXIB 200 MG CAP PO PRN (14:25)
[2019-02-01 14:42] VITALS: BP 132/84
[2019-02-01] MEDS: oxyCODONE HCL 5 MG CAP PO PRN ×2 (14:42→22:46)
[2019-02-01] MEDS: ACETAMINOPHEN 500 MG TAB PO PRN (19:01)
[2019-02-01 19:45] VITALS: BP 132/78
[2019-02-01] MEDS ORDERED: MELATONIN 3 MG TAB PO SCH (21:00)
[2019-02-01 22:41] VITALS: BP 142/69
[2019-02-02 05:14] VITALS: BP 133/50
[2019-02-02] MEDS: oxyCODONE HCL 5 MG CAP PO PRN (05:30)
[2019-02-02 05:40] LABS: PLATELET COUNT, AUTOMATED 181 K/uL (150-450)
[2019-02-02 07:41] VITALS: BP 134/69
[2019-02-02 07:46] VITALS: BP 126/81
[2019-02-02] MEDS: ACETAMINOPHEN 500 MG TAB PO PRN (07:49)
--- NOTE | 2019-02-02 08:37 | Transfer Summary (ECF/SWB) ---
Transfer Summary (ECF/[facility]) Problems: (1) Hip fracture Assessment & Plan: Surgery done by Dr. Purcell on 01/30. Patient on aspirin 325mg daily for blood clot prevention. She will go to [facility] today for further PT and rehab. (2) Tobacco abuse Status: Chronic Assessment & Plan: Nicotine replacement PRN if necessary. (3) Alcoholism Status: Chronic Assessment & Plan: History of alcoholism, has not shown any signs of detoxing, no CIWA needed at this time. Thiamine and folate supplements daily. (4) Hyponatremia Status: Chronic Assessment & Plan: Chronic Hyponatremia secondary to low dietary intake and excessive alcohol intake. Sodium level has remained stable on this admission Latest Vital Signs Vital Signs Date Time Temp Pulse Resp B/P (MAP) Pulse Ox O2 Delivery O2 Flow Rate FiO2 02/02/19 08:17 97 Nasal Cannula 02/02/19 07:46 98.1 84 126/81 (96) 4.0 02/02/19 07:41 14 Result Diagram: 02/02/19 0509 02/02/19 0509 Condition: Improved Disposition: SNF/NH Treatment Goals and Plan Patient requires assisted and/or skilled rehabilitation with the goal to increase independence with ADL's, functional strength and mobility. Continue and adjust medication regimen. Services Required: PT, OT Copies To 1: MARTÍN GRAY MD ; MARTÍN OVIEDO Feb 02, 2019 08:37
[2019-02-02] MEDS ORDERED: amLODIPine BESYL(*) 5 MG TAB PO SCH (09:00)
[2019-02-02 09:33] VITALS: BP 110/58
[2019-02-02] MEDS: THIAMINE HCL 100 MG TAB PO SCH (09:37)
[2019-02-02] MEDS: ASPIRIN 325 MG ENTERIC COATED PO SCH (09:38)
[2019-02-02] MEDS: FOLIC ACID 1 MG TAB PO SCH (09:38)
== END 2019-02-02 11:06 | DRG 481 ==
LOC: ER 11:23 → MED 14:09 → UNDODISIN 02-02 09:59
PROVIDERS: ADMIT Internal Medicine; ATTEND Internal Medicine
PROC: 0QS636Z Reposition Right Upper Femur with Intramedullary Internal Fixation Device, Percutaneous Approach (ICD-10-PCS; principal; 2019-01-29)
DX: S72.141A Displaced intertrochanteric fracture of right femur, initial encounter for closed fracture (principal); E87.1 Hypo-osmolality and hyponatremia; F17.210 Nicotine dependence, cigarettes, uncomplicated; F10.20 Alcohol dependence, uncomplicated; I10 Essential (primary) hypertension; W18.30XA Fall on same level, unspecified, initial encounter; Y90.0 Blood alcohol level of less than 20 mg/100 ml; Y99.8 Other external cause status
CPT/HCPCS: 36415; 71045; 76000; 80320; 81001; 82040; 82247; 82310; 82374; 82435; 82565; 82947; 83605; 83735; 84075; 84132; 84155; 84295; 84450; 84460; 84520; 85025; 85610; 85730; 86850; 86900; 86901; 93005; 96374; 97162; 99285; C1713; J0330; J0690; J1100; J1885; J2001; J2405; J2704; J2795; J3010; J3480; J7030; Q0163

== ENCOUNTER 2019-02-02 10:12 | Inpatient (IN) | payer BC, MEDICARE ==
[2019-01-30 13:41] VITALS: Ht 170.2 cm; Wt 65.8 kg
[~2019-02-02] VITALS: Ht 170.2 cm; Wt 65.8 kg
[2019-02-02] MEDS ORDERED: CELECOXIB 200 MG CAP PO PRN (11:28)
[2019-02-02] MEDS ORDERED: BISACODYL 10 MG SUPP PR PRN (11:28)
[2019-02-02] MEDS ORDERED: diphenhydrAMINE 25 MG CAP PO PRN (11:28)
[2019-02-02] MEDS ORDERED: NICOTINE INH SYSTEM 10 MG/INH INH PRN (11:28)
[2019-02-02] MEDS ORDERED: NICOTINE CARTRIDGE 1 EA PO PRN (11:28)
[2019-02-02] MEDS ORDERED: MAGNESIUM CITRATE 300 ML BTL PO PRN (11:28)
[2019-02-02 11:30] VITALS: BP 112/59
[2019-02-02] MEDS: oxyCODONE HCL 5 MG CAP PO PRN ×2 (12:12→18:18)
--- NOTE | 2019-02-02 12:42 | Consultant Pharmacy Review ---
Dietitian Teacher Review Medication Review Do All Mecications have a Diag: Yes Beers Criteria Medication 2015 Anticholinergics exclude TCAs: Diphenhydramine Disease-Drug Interactions History of Falls/Fractures: Opioids Pneumococcal Vaccine HX Pneumo Vac ([id number]): No Comments Regarding the Review Patient is a candidate for Prevnar 13 if patient is willing to receive. Monitor patient for falls due to OxyIR and diphenhydramine orders. SHALINI CANTU Feb 02, 2019 12:42
--- NOTE | 2019-02-02 14:12 | NUR ---
Physical Therapy Impression PT ECF eval complete. Pt unable to fully recall reason and timing for recent move from [place] to her daughter's home in [place]. CGA for STS transfers with cues to push up from support surface. PT provided step by step verbal and tactile cues for sequencing and use of RW for ambulation. Pt tolerated ambulation 2x5' with RW and CGA, with long sitting break in between ambulation bouts. Pt will benefit from skilled PT intervention in order to increase independence with functional mobility and decrease risk of falls prior to d/c home. Physical Therapy Goals 1: Pt to complete bed mobility with Kaitlynn 2: Pt to complete transfers with Kaitlynn and RW 3: Pt to ambulate 150' with SBA and RW 4: Pt to asc/desc 3x4 stairs with railing and SBA 5: Pt to ambulate 10' on uneven surface with SBA. Patient's Goals
--- NOTE | 2019-02-02 14:49 | OT ECF NOTE ---
Type of Note: Initial Note Primary Medical Diagnosis: Generalized weakness s/p Right Hip ORIF. *WBAT* Occupational Therapy Evaluation Date: 02/02/19 SUBJECTIVE: Prior Hospitalization: [facility] 01/29/19 thru 02/02/19. DOS: 01/30/[address] Purcell Prior Level of Function: Independent with ADLs/medication management. Ambulation with no assistive device. Family assists with IADLs. Prior Living Status: Bi-level house Living with family-Daughter and son-in-law Assist by family Community Services: No known needs Home Accessibility: Stairs with rails-Resides in basement Stairs without rails-to enter home Basement in home Walk-in shower Equipment Owned: None Medical Complications/Past Medical History: HTN, hyponatremia. Please refer to EMR for further details. Psychosocial Support: Supportive family Pain Scale (0-10): No pain at rest. Pain reported with functional mobility. No numerical rating provided. OBJECTIVE: Patient oriented to self and location. Not oriented to date. Reporting January 1975. Reoriented appropriately with cues. Strength: MMT: Right Left Shoulder Flexion WFL WFL Elbow Flexion WFL WFL Wrist Extension WFL WFL Medical Doctor WFL WFL (5= normal, 4= good, 3= fair, 2= poor, 1= trace) ROM: Both upper extremities, WFL Sensation: No paraesthesia reported Functional Transfer: Assistive Device: Front wheeled walker, Gait belt. Stand pivot. Transfer Ability: Minimum assistance, 1-person assist, Verbal cues ADL: Upper body dressing: Assistive device: Upper body dressing ability: N/T Lower body dressing: Assistive device: Bedside Commode Lower body dressing ability: Maximum assistance Toileting: Assistive device: Bedside Commode Toileting ability: Maximum assistance Grooming/hygiene: Assistive device: Grooming ability: N/T Bathing: Assistive device: Bathing ability: N/T Standardized Assessment: Rachel Index of Activities of Daily Livin/20 upon initial evaluation (02/02/19). ASSESSMENT: Arely presents to [facility] requiring one assist for ADLs and stand pivot transfers with RW. At [facility], she was independent with ADLs and ambulating with no assistive device. She will benefit from skilled OT services to improve activity tolerance and optimize independence for ADLs prior to discharge home with assist from family. Problem List/Current Limitations: Pain Decreased activity tolerance Decreased strength Decreased ROM Decreased balance Generalized weakness Poor safety awareness Decreased problem solving Short Term Goals: 1) Pt will be Modified Independent UB/LB dressing. 2) Pt will be Independent grooming/hygiene. 3) Pt will be Min A shower task seated. 4) Pt will be Modified Independent toilet task. 5) Pt will be educated on appropriate adaptive equipment needs. 6) Pt Rachel Index of ADLs score will improve by 2 points. Prison Goals: Return home with continued assist from family and services. Patient Goals: Move around better Rehabilitation Prognosis: Good Barriers to Discharge: Pain PLAN: The patient will benefit from skilled occupational therapy services 5 times per week for 2 weeks including: Ther ex ADL training Safety training Ther act IADL training Home assessment Transfer training Adaptive equip training Bed mobility Energy conservation Thank you for this referral. If you have any questions, concerns, or comments about this report or plan, please contact me at . Eliane Andrew MS, OTR/L Occupational Therapist [place]
--- NOTE | 2019-02-02 15:24 | PT ECF NOTE ---
Type of Note: Initial Note Primary Medical Diagnosis: R) hip ORIF, s/p hip fracture Physical Therapy Evaluation Date: 02/02/2019 SUBJECTIVE: Prior Hospitalization: [facility] 01/29/19-02/02/19 Prior Level of Function: Pt reports that she was I) with no AD at PLOF Prior Living Status: Bi-level house, Living with family -- pt reports that she lives in the basement at her daughter's home, with 12 stairs with railing to access basement Community Services: No known needs Home Accessibility: Stairs with rails Equipment Owned: None Medical Complications/Past Medical History: See EMR Psychosocial Support: Daughter Pain Scale (0-10): 4/10 at rest, 6/10 with mobility OBJECTIVE: Strength: Right Lower Extremity: DF: 4/5 Knee flexion: <3/5 Knee extension: <3/5 Hip flexion: <3/5 Left Lower Extremity: DF: 4/5 Knee flexion: 3+/5 Knee extension: 3+/5 Hip flexion: <3/5 ROM: R) LE limited by pain Sensation: WNL Other Neuro findings: Non noted Bed Mobility: Not tested, pt up in chair Transfers: CGA with RW Gait: CGA with RW, 2x5' Stairs: NT ASSESSMENT: PT ECF eval complete. Pt unable to fully recall reason and timing for recent move from [facility] to her daughter's home in [place]. CGA for STS transfers with cues to push up from support surface. PT provided step by step verbal and tactile cues for sequencing and use of RW for ambulation. Pt tolerated ambulation 2x5' with RW and CGA, with long sitting break in between ambulation bouts. Pt will benefit from skilled PT intervention in order to increase independence with functional mobility and decrease risk of falls prior to d/c home. Problem List/Current Limitations: Pain Decreased activity joshua Decreased strength Decreased ROM Decreased balance Decreased problem solving Confusion Short Term Goals: 1: Pt to complete bed mobility with Kaitlynn 2: Pt to complete transfers with Kaitlynn and RW 3: Pt to ambulate 150' with SBA and RW 4: Pt to asc/desc 3x4 stairs with railing and SBA 5: Pt to ambulate 10' on uneven surface with SBA. Optomechanical Technician Goals: Pt to d/c to prior living situation with decreased need of assistance from others. Patient Goals: "Get out of her" Rehabilitation Prognosis: Good Barriers for Discharge: Apparent confusion, high level of independence needed to d/c home. PLAN: The patient will benefit from skilled physical therapy services 5 times per week for 2 weeks including: Therapeutic Exercise Therapeutic Activities Transfer Training Gait Training Stair Training Manual Therapy Safety Training Neuromuscular Re-educ. Pt/Caregiver Training Bed Mobility Thank you for this referral. If you have any questions, concerns, or comments about this report or plan, please contact me at . Genie Du, PT, DPT [place]
[2019-02-02 15:52] VITALS: BP 113/61
[2019-02-02] MEDS: ACETAMINOPHEN 500 MG TAB PO PRN (15:58)
[2019-02-02] MEDS: MELATONIN 3 MG TAB PO SCH (20:38)
[2019-02-02] MEDS: MAGNESIUM OXIDE 400 MG TAB PO SCH (20:38)
[2019-02-03] MEDS: oxyCODONE HCL 5 MG CAP PO PRN ×4 (00:30→20:23)
[2019-02-03] MEDS: ACETAMINOPHEN 500 MG TAB PO PRN ×2 (04:43→13:56)
[2019-02-03] MEDS: MAGNESIUM HYDROXIDE* 30ML UDCP PO PRN (06:37)
[2019-02-03 07:20] VITALS: BP 105/53
--- NOTE | 2019-02-03 08:42 | NUR ---
Physical Therapy Impression Patient presents in room and is agreeable to therapy. Before getting up from chair nursing came in to give patient her pain meds. Patient transferred from chair to standing [facility] with cuing for technique and sequencing. Patient instructed in gait training beginning with weight shifts side to side and front to back leading left and right. Patient then began ambulation with short shuffling antalgic gait. Patient instructed to increase step length and weight shift to improve gait. Patient ambulated ~24 feet with encouragement for distance. Patient was in pain throughout gait. Patient instructed to kick leg out fot stand to sit transfer back to chair. Patient left in chair with call light and all needs met. Nursing notified of pain. Physical Therapy Goals 1: Pt to complete bed mobility with Kaitlynn 2: Pt to complete transfers with Kaitlynn and RW 3: Pt to ambulate 150' with SBA and RW 4: Pt to asc/desc 3x4 stairs with railing and SBA 5: Pt to ambulate 10' on uneven surface with SBA. Patient's Goals
[2019-02-03] MEDS: amLODIPine BESYL(*) 5 MG TAB PO SCH (08:53)
[2019-02-03] MEDS: MAGNESIUM OXIDE 400 MG TAB PO SCH ×2 (08:53→20:23)
[2019-02-03] MEDS: FOLIC ACID 1 MG TAB PO SCH (08:53)
[2019-02-03] MEDS: CALCIUM CARBONATE/VITAMIN D3 PO SCH (08:53)
[2019-02-03] MEDS: MULTIVITAMINS TAB PO SCH (08:53)
[2019-02-03] MEDS: THIAMINE HCL 100 MG TAB PO SCH (08:53)
[2019-02-03] MEDS: ASPIRIN 325 MG ENTERIC COATED PO SCH (08:53)
--- NOTE | 2019-02-03 10:33 | NUR ---
Occupational Therapy Impression CGA ambulation 2x10ft with RW. Cues for sequencing and improving safety with RW. SBA UB dressing. SBA LB dressing with no AE. CGA pulling clothing over hips. Pt declines toileting at this time. Reporting fatigue and increased pain, seated up in chair with ice at end of tx. Reporting relief. Continue POC. Occupational Therapy Goals 1) Pt will be Modified Independent UB/LB dressing. 2) Pt will be Independent grooming/hygiene. 3) Pt will be Min A shower task seated. 4) Pt will be Modified Independent toilet task. 5) Pt will be educated on appropriate adaptive equipment needs. 6) Pt Rachel Index of ADLs score will improve by 2 points. Patient's Goal
--- NOTE | 2019-02-03 12:53 | SPEECH INITIAL EVALUATION ---
INITIAL SPEECH THERAPY EVALUATION REPORT Cognitive Communication Assessment Patient Name: Arely Mac Ordering Provider: Hospitalist Date of Evaluation: 02/03/19 Patient : 1955, 63yo F Clinician: Abbey Rivera M.S., CCC-PRINT PRODUCTION MANAGER Treatment Dx: moderate cognitive linguistic deficits. BACKGROUND The patient is a 63-year old female admitted to [facility] for ORIF s/p hip fracture after a fall at home. She lives in the basement of her daughters house. Daughter and grandchildren also live in the home. PT reports cognitive concerns as the patient is unable to fully recall recent events and requires step by step verbal and tactile cues for sequencing and use of RW for ambulation. PLOF is independent with ADL and assist from family IADLs including cooking, transportation. An ST consult was requested to analyze cognitive linguistic status and assist in developing recommendations for safe discharge from hospital environment. Primary Medical Diagnosis: hip fracture Pain Scale (0-10): 6 on scale of 1-10 LOC / Participation: alert, cooperative Motor Speech: WFL; non-apraxic; non-dysarthric Voice: hoarse voice Dysphagia: no concerns reported at this time from patient or staff COGNITIVE LINGUISTIC ASSESSMENT Pt was seen at the bedside for cognitive linguistic analysis using the [employer] Cognitive Assessment, (Version 7.1) paired with informal evaluation procedures. The pt obtained a score of 20/30 (>26/30=WNL) on the MOCA, exhibiting mild cognitive linguistic deficits. Affected domains include delayed recall, orientation, and executive function. Pt did not fully recall recent events without assist. She knew she had fallen at home but did not recall breaking her hip or having surgery until reminded. Pt struggled with following instructions and required repeated /simplified instructions to complete several tasks . Pt inverted the current year to 1919 and did not self-correct when cued. Relative areas of strength were attention, language, and visuospatial skills. She demonstrated potential for new learning but struggled to recall new details independently following delay with and without distraction. When asked if she should currently be using her RW some of the time vs all of the time, the patient responded some of the time. Following a short discussion with education, the patient reported she had meant to say all of the time. It is unclear if she misspoke or if she was confused regarding safety precautions. The pt did not recognize her mistakes independently. Even with max assist she failed to correct most errors. Once her errors were identified and explained to her, she recognized them and demonstrated frustration with herself for making the error. Responses to direct questions and statements during conversation were topically appropriate and without semantic or syntactic error. At this time, the pt appears to be functioning mild cognitive-linguistic deficits. Medical record reports alcohol addiction and cognitive function prior to admittance is not clear though some prior loss of function is suspected. If patient DCs to home with current cognitive deficits, full-time supervision is recommended to ensure patient is following instructions/precautions for safety with ADLs and IADLs Skilled ST services are warranted to continue therapeutic assessment of cognitive linguistic skills and to provide cognitive rehabilitation and pt/caregiver instruction in strategies to support identified areas of impairment for safe and successful transition from hospital environment. RECOMMENDATIONS 1. ST 3x/wk 2. Full-time supervision if pt DCs to home with current cognitive deficits PROGNOSIS: Fair, expressed willingness to work with ST BARRIERS TO SUCCESS: PLOF PLAN OF CARE Short Term Goals 1. The patient will recall 6/6 safety precautions with min assist for safe return to home. 2. The patient will refer to external aides when provided with min assist to support retention of functional, novel information with 90% acc for improved safety and knowledge of medical info, safety precautions/instructions Access Spec Goals 1. Pt will demonstrate skills needed for safe return to home Thank you for this referral. Please call [phone] with any questions or concerns. Abbey Rivera M.S., CCC-PRINT PRODUCTION MANAGER MTDD
--- NOTE | 2019-02-03 14:12 | NUR ---
Frequent urination Arely has been voiding frequently today, anywhere from 50-275cc/void. She stated that this has been a problem she's had for years. She also has a history of hyponatremia as well as alcoholism, and stated that she usually drinks a lot of beer. She also swallows a lot of water when trying to get her pills to go down. Pt had voided x2 while speech therapist was in the room, and as soon as ST left, pt had to go again, and total volume for the 3 voids was 415cc. So, first I checked post-void residual x2 with bladder scanner, which showed a residual of estimated 289 (after the 3rd void) and 231 cc (after a void of 275cc). Pt has been drinking out of a hospital mug (850cc), so this was replaced with a 300cc cup. I taught her the reason for changing out mug for cup and that we would encourage her to use applesauce for swallowing her pills. We will continue to monitor her I/O.
--- NOTE | 2019-02-03 14:30 | Medical Nutrition Therapy ---
Nutrition Anthropometrics Height (Inches): 67.00 Height (Calculated Centimeters: 170.708463 Weight (Pounds): 149 Weight (Calculated Kilograms): 67.585 BMI: 23.3 Evan Nutrition Score: Probably Inadequate Evan Nutrition Risk Score: 16 Dietary Referral Nutrition Risk Factors: Nutrition Risk Comment: Alcoholic, appears malnourished Physical Findings Physical Appearance: WNR Skin Appearance Skin Appearance: Edema Edema Location Modifier: Edema Location: Type of Edema: Degree of Edema: Gastrointestinal Symptoms GI Symtoms: Constipation Tube Present: Bowel Sounds: Recent Bowel Pattern: Constipated Stool Characteristics: Nutrition/Food History Fair Nutritional Diagnosis Nutritional Risk Acuity 2: Pr Appetite > 3d Nutritional Risk Acuity 3: ST I/II Pressure Ulcer, Alcohol abuse Past Medical History: alcohol 12+ beers/day, hyponatremia Nutritional Acuity: 3-Mild Energy Requirement: 1632 (MSJ (AF1.3)) Protein Requirement: 68 (1g/kg) Fluid Requirement: 1693 (25mL/kg) Nutrition Intervention: Cont diet as ordered Nutrition Monitoring & Eval RD Patient Assessment Time: [address] Assessment Type: RD Assessment Patient Nutrition Acuity: 3-Mild Follow Up Date: Feb 10, 2019 Nutritional Comment: 02/03/19-Reviewed current and past medical hx. Pt admitted to [facility] s/p hip fracture. Signifcant PMH includes ETOH abuse, hyponatremia, Tongue cancer. Pt stated her typical intake is 2-3 small meals per day at home. Reports a usual body weight of 145-150 lbs and no recent wt loss. Wt on 01/30/19 was 139.5 and current wt 02/02/19 was 149 lbs. Pertinent rx include oxycodone. Taking MVI, Ca/D3, Thiamin, Folic Acid, Mag Ox. Per nursing pt last BM was 01/29/19. Currently recieving dulcolax and MOM. She is on a regular diet, and recently put on a fluid restriction to prevent hyponatremia. She is eating well here 100% x last 3 meals. Given pt history of ETOH abuse will perfrom malnutrition physical assessment next visit. Will continue to monitor intakes, weight, hyponatremia.BORIS RUIZ Feb 03, 2019 14:30
[2019-02-03 16:48] VITALS: BP 110/60
[2019-02-03] MEDS: MELATONIN 3 MG TAB PO SCH (20:22)
[2019-02-04] VITALS (15 sets, daily range): BP systolic 95–158; BP diastolic 44–76
[2019-02-04] MEDS: MAGNESIUM HYDROXIDE* 30ML UDCP PO PRN (02:27)
[2019-02-04] MEDS: oxyCODONE HCL 5 MG CAP PO PRN ×4 (02:27→20:47)
[2019-02-04] MEDS: ACETAMINOPHEN 500 MG TAB PO PRN (06:38)
--- NOTE | 2019-02-04 08:04 | ECF History & Physical ---
Transfer Summary (ECF/[facility]) Problems: (1) Hip fracture Assessment & Plan: Surgery done by Dr. Purcell on 01/30. Patient on aspirin 325mg daily for blood clot prevention. She will go to [facility] today for further PT and rehab. (2) Tobacco abuse Status: Chronic Assessment & Plan: Nicotine replacement PRN if necessary. (3) Alcoholism Status: Chronic Assessment & Plan: History of alcoholism, has not shown any signs of detoxing, no CIWA needed at this time. Thiamine and folate supplements daily. (4) Hyponatremia Status: Chronic Assessment & Plan: Chronic Hyponatremia secondary to low dietary intake and excessive alcohol intake. Sodium level has remained stable on this admission Latest Vital Signs Vital Signs Date Time Temp Pulse Resp B/P (MAP) Pulse Ox O2 Delivery O2 Flow Rate FiO2 02/02/19 08:17 97 Nasal Cannula 02/02/19 07:46 98.1 84 126/81 (96) 4.0 02/02/19 07:41 14 Result Diagram: 02/02/19 0509 02/02/19 0509 Condition: Improved Disposition: SNF/NH Treatment Goals and Plan Patient requires mcfp and/or skilled rehabilitation with the goal to increase independence with ADL's, functional strength and mobility. Continue and adjust medication regimen. Services Required: PT, OT Copies To 1: MARTÍN GRAY MD ; MARTÍN OVIEDO Feb 02, 2019 08:37 <Electronically signed by MARTÍN OVIEDO> D/ MOHSEN/TIFFANY CC: MARTÍN GRAY MD MTDD
[2019-02-04] MEDS: MULTIVITAMINS TAB PO SCH (08:52)
[2019-02-04] MEDS: CALCIUM CARBONATE/VITAMIN D3 PO SCH (08:52)
[2019-02-04] MEDS: THIAMINE HCL 100 MG TAB PO SCH (08:52)
[2019-02-04] MEDS: amLODIPine BESYL(*) 5 MG TAB PO SCH (08:52)
[2019-02-04] MEDS: ASPIRIN 325 MG ENTERIC COATED PO SCH (08:52)
[2019-02-04] MEDS: MAGNESIUM OXIDE 400 MG TAB PO SCH ×2 (08:52→20:47)
[2019-02-04] MEDS: FOLIC ACID 1 MG TAB PO SCH (08:52)
--- NOTE | 2019-02-04 10:32 | NUR ---
Physical Therapy Impression Patient presents in chair and reluctantly agrees to therapy. Patient was moaning prior to me walking in room. Nursing reports patient had her pain pill and is not due for another one. Patient was SBA for transfer from chair. Patient instructed in gait training with FWW ~38 feet with significantly decreased adonay. Step to gait and decreased weight shift onto right LE. Patient instructed to shift weight and increase step length but is unable to do this at this time. Patient had increased distance today from 24 feet to 38 feet. Patient was yelling during therapy from pain. Nursing was notified of this. Patient educated that we need to improve the quality of her gait and push a little harder with each session. Physical Therapy Goals 1: Pt to complete bed mobility with Kaitlynn 2: Pt to complete transfers with Kaitlynn and RW 3: Pt to ambulate 150' with SBA and RW 4: Pt to asc/desc 3x4 stairs with railing and SBA 5: Pt to ambulate 10' on uneven surface with SBA. Patient's Goals
--- NOTE | 2019-02-04 11:00 | Hospitalist Progress Note ---
Subjective Progress Notes Subjective No complaints at this time. Working with PT/OT. Patient Complains of: Cardiovascular: No: Chest Pain, Palpitations Respiratory: No: Shortness of Breath Physical Exam Vital Signs Date Time Temp Pulse Resp B/P (MAP) Pulse Ox O2 Delivery O2 Flow Rate FiO2 02/04/19 07:15 91 Nasal Cannula 4.0 02/04/19 07:15 98.0 80 18 112/59 (76) Intake and Output 02/04/19 01:02 Intake Total 1790 ml Output Total 1215 ml Balance 575 ml Intake Oral 1790 ml Output Urine Total 1215 ml Bladder Scan Volume Amount 289 mL 231 # Voids 21 General Appearance: Alert, Awake, No Acute Distress Cardiovascular: Regular Rate and Rhythm Respiratory: No Respiratory Distress Assessment and Plan Problems: (1) Hip fracture Assessment & Plan: Surgical repair done by Dr. Purcell on 01/30. Patient on aspirin 325mg daily for anticoagulation. She continues to work with PT/OT for strength building. MOCA score of 20/30 showing mild cognitive linguistic deficits. ST recommending constant supervision upon discharge if current deficits do not improve. Oxy IR changed to Q4 PRN for better pain management. (2) Alcoholism Status: Chronic Assessment & Plan: History of alcoholism. Thiamine and folic acid supplements daily. Did not detox on this admission. (3) Tobacco abuse Status: Chronic Assessment & Plan: Nicotine replacement PRN if necessary. (4) Hyponatremia Status: Chronic Assessment & Plan: Chronic Hyponatremia secondary to low dietary intake and excessive alcohol intake. Sodium level has remained stable on this admission. Fluid restriction of 2000cc per day. MARTÍN OVIEDO Feb 04, 2019 11:00
--- NOTE | 2019-02-04 13:28 | NUR ---
Occupational Therapy Impression CGA ambulation 2x15ft with RW. V/c's for sequencing functional mobility and use of RW. Min A shower seated. Set-up UB dressing. Set-up LB dressing with CGA pulling clothing over hips. Set-up grooming seated. Pt requires Max A to manage donning/doffing of nasal cannula.Pt progressing well towards OT goals, limited by pain and requires cues for safety with tasks. Continue POC. Occupational Therapy Goals 1) Pt will be Modified Independent UB/LB dressing. 2) Pt will be Independent grooming/hygiene. 3) Pt will be Min A shower task seated. 4) Pt will be Modified Independent toilet task. 5) Pt will be educated on appropriate adaptive equipment needs. 6) Pt Rachel Index of ADLs score will improve by 2 points. Patient's Goal
--- NOTE | 2019-02-04 14:26 | NUR ---
PT. refused nail care/manicures or hair care for ACTIVITIES
[2019-02-04] MEDS: MELATONIN 3 MG TAB PO SCH (20:47)
--- NOTE | 2019-02-04 21:03 | NUR ---
At 1910 staff heard a crash in the patient's room and the patient cussing. Upon entering the room patient was found on floor in front of her chair. Arely states she was reaching for her glass of water and "slid" out of the chair. Patient assisted to chair by staff and she stated she was having some increased pain. Hospitalist notified and an order for a xray of the right hip given. No results are back at this time. VS are WNLs and no new neurological deficits noted. Patient alert and oriented at this time. Nursing supervisor printing shop and patient's daughter notified. Ortho to be notified in the am if Xray WNLs.
--- NOTE | 2019-02-04 21:48 | RADIOLOGY IMAGING REPORT ---
[place] [facility] [place] NAME: Arely Mac : 1955 MR: [id number] V: [id number] EXAM DATE: ORDERING PHYSICIAN: LEANDRO PADRON TECHNOLOGIST: Location: [facility] [place] Patient: Arely Mac : 1955 Visit/Account:[id number] Date of Sevice: 02/04/2019 EXAMINATION: HIP RIGHT HISTORY: fall with increased pain COMPARISON: 01/29/2019. FINDINGS: AP view of the pelvis AP and frog-leg lateral views of the right hip are obtained. Bones: Redemonstration of a recent comminuted intertrochanteric fracture of the right femur. No new areas of acute fracture are identified. Joint spaces: Right hip joint space is maintained. No dislocation. Hardware: Short antegrade intramedullary jessica in the right femur with proximal interlocking screw stephan ersing the right femoral neck. There is also a distal interlocking screw in the femoral diaphysis. No evidence of hardware loosening. Left hip arthroplasty. Alignment: Alignment of the fracture fragments of the proximal right femur are improved compared wit h the preoperative examination. There is mild displacement of some of the fracture fragments. Soft tissues: Cutaneous eric along the right hip. IMPRESSION: Internal fixation hardware traverses the recent intertrochanteric fracture of the proximal right femu r. No dislocation or evidence of a new acute fracture since the previous examination. Report Dictated By: Errol Donis MD at 02/04/2019 9:35 PM Report E-Signed By: Errol Donis MD at 02/04/2019 9:43 PM WSN:[id number]
[2019-02-05 00:40] VITALS: BP 133/70
[2019-02-05 01:15] VITALS: BP 104/67
[2019-02-05 02:15] VITALS: BP 124/65
[2019-02-05 03:15] VITALS: BP 140/78
[2019-02-05] MEDS: oxyCODONE HCL 5 MG CAP PO PRN ×3 (03:35→18:08)
[2019-02-05 07:31] VITALS: BP 118/67
[2019-02-05] MEDS: amLODIPine BESYL(*) 5 MG TAB PO SCH (09:00)
[2019-02-05] MEDS: MULTIVITAMINS TAB PO SCH (09:45)
[2019-02-05] MEDS: CALCIUM CARBONATE/VITAMIN D3 PO SCH (09:45)
[2019-02-05] MEDS: MAGNESIUM OXIDE 400 MG TAB PO SCH ×2 (09:46→20:22)
[2019-02-05] MEDS: ASPIRIN 325 MG ENTERIC COATED PO SCH (09:46)
[2019-02-05] MEDS: THIAMINE HCL 100 MG TAB PO SCH (09:46)
[2019-02-05] MEDS: FOLIC ACID 1 MG TAB PO SCH (09:46)
--- NOTE | 2019-02-05 12:31 | NUR ---
Physical Therapy Impression Pt requires [id number] instruction for path negotiation and even to turn safely in front of chair prior to sitting. Pt appears limited in problem solving strategies including taking off O2 in order to ambulate to the BR, stating that the tubing is not long enough, however, tubing is more than long enough. Physical Therapy Goals 1: Pt to complete bed mobility with Kaitlynn 2: Pt to complete transfers with Kaitlynn and RW 3: Pt to ambulate 150' with SBA and RW 4: Pt to asc/desc 3x4 stairs with railing and SBA 5: Pt to ambulate 10' on uneven surface with SBA. Patient's Goals
--- NOTE | 2019-02-05 12:42 | NUR ---
Patient Tx update 02-05-19 Pt continues to demonstrate retrograde amnesia and does not indep recall recent medical events including breaking her hip and having hip surgery. However she does recall the fall indep. Speech Therapy administered the Pilbox Text: Pt failed pillbox test due to not completing the task within allotted time (5min). However, the patient made no omission, commission, or misplacement errors. Pt demonstrated several good approach techniques including replacing lids addy and grouping completed pill bottles in a distinct location. Poor techniques included errors of action/self-regulation (poor working memory and motor programming ie: dropping pills) and planning/attention errors (time to complete task, distraction from task, and not preparing pill box prior to handling pills) Pt is not expected to be successful with med management independently at home at this time. She reports she was managing her own medication prior to this hospital stay.
[2019-02-05 16:50] VITALS: BP 115/64
[2019-02-05] MEDS: MELATONIN 3 MG TAB PO SCH (20:22)
--- NOTE | 2019-02-05 21:15 | NUR ---
patient found drinking water from her ice pack. Pack taken away and discussed with patient the reason why she is on a fluid restriction. Patient verbalized understanding but will require more reminders.
[2019-02-06] VITALS: BP 124/66
[2019-02-06] MEDS: ACETAMINOPHEN 500 MG TAB PO PRN (06:10)
[2019-02-06 07:20] VITALS: BP 124/75
[2019-02-06] MEDS: MAGNESIUM OXIDE 400 MG TAB PO SCH ×2 (08:31→21:05)
[2019-02-06] MEDS: CALCIUM CARBONATE/VITAMIN D3 PO SCH (08:31)
[2019-02-06] MEDS: THIAMINE HCL 100 MG TAB PO SCH (08:31)
[2019-02-06] MEDS: oxyCODONE HCL 5 MG CAP PO PRN ×3 (08:31→21:05)
[2019-02-06] MEDS: MULTIVITAMINS TAB PO SCH (08:31)
[2019-02-06] MEDS: FOLIC ACID 1 MG TAB PO SCH (08:31)
[2019-02-06] MEDS: ASPIRIN 325 MG ENTERIC COATED PO SCH (08:31)
[2019-02-06] MEDS: amLODIPine BESYL(*) 5 MG TAB PO SCH (08:32)
--- NOTE | 2019-02-06 11:55 | NUR ---
Occupational Therapy Impression CGA ambulation 2x25ft with RW. One seated rest break. CGA toileting. V/c's for improving yogi-care hygiene. CGA grooming standing sinkfront. Independent donning/doffing socks. UB ther ex with red theraband, pt requires cues and demonstration. SpO2 >92% on 1L throughout tx. Improved tolerance for functional mobility and safety with RW this tx. Continue POC. Occupational Therapy Goals 1) Pt will be Modified Independent UB/LB dressing. 2) Pt will be Independent grooming/hygiene. 3) Pt will be Min A shower task seated. 4) Pt will be Modified Independent toilet task. 5) Pt will be educated on appropriate adaptive equipment needs. 6) Pt Rachel Index of ADLs score will improve by 2 points. Patient's Goal
--- NOTE | 2019-02-06 17:28 | NUR ---
Physical Therapy Impression Pt is progressing with ease of transfers and safer ambulation strategies with FWW. Pt continues to requires assistance to manage O2 tubing safely and generally has the nasal canula wrapped around her neck rather than her ears upon Pt's arrival and requires assistance to reposition this safely. Pt tolerated TUG test and completed this in 1 minute 30 seconds, being very cautious with turns and sitting. Physical Therapy Goals 1: Pt to complete bed mobility with Kaitlynn 2: Pt to complete transfers with Kaitlynn and RW 3: Pt to ambulate 150' with SBA and RW 4: Pt to asc/desc 3x4 stairs with railing and SBA 5: Pt to ambulate 10' on uneven surface with SBA. Patient's Goals
[2019-02-06 17:35] VITALS: BP 126/71
[2019-02-06] MEDS: MELATONIN 3 MG TAB PO SCH (21:05)
[2019-02-07 05:30] VITALS: BP 109/64
[2019-02-07] MEDS: ACETAMINOPHEN 500 MG TAB PO PRN ×2 (05:59→22:07)
[2019-02-07] MEDS: CALCIUM CARBONATE/VITAMIN D3 PO SCH (08:38)
[2019-02-07] MEDS: MAGNESIUM OXIDE 400 MG TAB PO SCH ×2 (08:38→21:21)
[2019-02-07] MEDS: amLODIPine BESYL(*) 5 MG TAB PO SCH (08:38)
[2019-02-07] MEDS: MULTIVITAMINS TAB PO SCH (08:38)
[2019-02-07] MEDS: THIAMINE HCL 100 MG TAB PO SCH (08:38)
[2019-02-07] MEDS: FOLIC ACID 1 MG TAB PO SCH (08:38)
[2019-02-07] MEDS: ASPIRIN 325 MG ENTERIC COATED PO SCH (08:38)
[2019-02-07 15:21] VITALS: BP 140/63
--- NOTE | 2019-02-07 16:06 | NUR ---
Inability to call daughter Patient had tried several times today to phone her daughter Soha, and each time she ends up talking to the hospital custom feed mill operator helper. Even with directions from both custom feed mill operator helper and me, she has been unable to "dial 9 and then the number." I wrote the number on the white board as well as on a slip of paper which I placed on her bedside table, and she is still unable. This RN has dialed the phone number x3 so far for the patient, and each time it rings, but there is no answer. I've also notified the hospital custom feed mill operator helper that she can either remind her to dial 9 and then the number or can dial the number for the patient. The custom feed mill operator helper responded that she has already dialed the phone number for the patient "at least 4 or 5 times today." We will notify Soha when she next comes in.
[2019-02-07] MEDS: MELATONIN 3 MG TAB PO SCH (21:21)
[2019-02-08 07:10] VITALS: BP 117/60
[2019-02-08] MEDS: CALCIUM CARBONATE/VITAMIN D3 PO SCH (08:50)
[2019-02-08] MEDS: MULTIVITAMINS TAB PO SCH (08:50)
[2019-02-08] MEDS: FOLIC ACID 1 MG TAB PO SCH (08:50)
[2019-02-08] MEDS: THIAMINE HCL 100 MG TAB PO SCH (08:50)
[2019-02-08] MEDS: ASPIRIN 325 MG ENTERIC COATED PO SCH (08:50)
[2019-02-08] MEDS: MAGNESIUM OXIDE 400 MG TAB PO SCH ×2 (08:50→20:53)
[2019-02-08] MEDS: amLODIPine BESYL(*) 5 MG TAB PO SCH (08:51)
--- NOTE | 2019-02-08 08:56 | NUR ---
Found drinking water in bathroom Patient was found standing in the bathroom with walker, with a cup, chugging water. Taught that she is on a fluid restriction because she has polydipsia, which is drinking too much water. Her response was anger, said, "I've had it with this place. I'm going back to [place]!" She has been very busy this morning, changing channels both on the TV remote and on the phone (she swears the phone works to change channels) until the TV quit working and I called [employer]Security, who unplugged TV and plugged it back in and thereby got it working again.
[2019-02-08 15:50] VITALS: BP 136/57
[2019-02-08] MEDS: MELATONIN 3 MG TAB PO SCH (20:53)
[2019-02-08] MEDS: ACETAMINOPHEN 500 MG TAB PO PRN (20:54)
[2019-02-09 07:45] VITALS: BP 105/60
[2019-02-09] MEDS: MULTIVITAMINS TAB PO SCH (08:57)
[2019-02-09] MEDS: CALCIUM CARBONATE/VITAMIN D3 PO SCH (08:57)
[2019-02-09] MEDS: ASPIRIN 325 MG ENTERIC COATED PO SCH (08:57)
[2019-02-09] MEDS: FOLIC ACID 1 MG TAB PO SCH (08:57)
[2019-02-09] MEDS: amLODIPine BESYL(*) 5 MG TAB PO SCH (08:57)
[2019-02-09] MEDS: THIAMINE HCL 100 MG TAB PO SCH (08:57)
[2019-02-09] MEDS: ACETAMINOPHEN 500 MG TAB PO PRN ×2 (08:57→20:39)
[2019-02-09] MEDS: MAGNESIUM OXIDE 400 MG TAB PO SCH ×2 (08:57→20:39)
--- NOTE | 2019-02-09 11:52 | NUR ---
Occupational Therapy Impression SBA ambulation x100ft, x125ft with RW. SBA sit<>stands from chair with arms and low, soft couch. No loss of balance over thresholds and on low profile carpet/lamenent. SBA toilet transfer with and without toilet riser. Pt reports improved safety and (I) with toilet riser. Will recommend toilet riser for at home. Independent LB dressing. Discussed possible AE needs to include walker/shower chair/toilet riser with arms. Will provide list for pt and family. Pt progressing well towards goals. Continue POC. Recommend HH and supervision for IADLs upon discharge home. Occupational Therapy Goals 1) Pt will be Modified Independent UB/LB dressing. 2) Pt will be Independent grooming/hygiene. 3) Pt will be Min A shower task seated. 4) Pt will be Modified Independent toilet task. 5) Pt will be educated on appropriate adaptive equipment needs. 6) Pt Rachel Index of ADLs score will improve by 2 points. Patient's Goal
--- NOTE | 2019-02-09 11:54 | NUR ---
Physical Therapy Impression Pt progressing well with functional mobility. SBA for transfers, with trial of STS training from lowered sofa, pt with good tolerance. Ambulation x150' total with RW and CGA. Emphasis on ambulation on carpeted surface with multiple turns in order to simulate home environment. PT instruction for asc/desc platform stair with use of RW, as well as with single railing with cues for sequencing and safety. Pt with good tolerance. Continue with POC. Physical Therapy Goals 1: Pt to complete bed mobility with Kaitlynn 2: Pt to complete transfers with Kaitlynn and RW 3: Pt to ambulate 150' with SBA and RW 4: Pt to asc/desc 3x4 stairs with railing and SBA 5: Pt to ambulate 10' on uneven surface with SBA. Patient's Goals
--- NOTE | 2019-02-09 12:57 | Hospitalist Progress Note ---
Subjective Progress Notes Subjective No new complaints. She doesn't remember falling out of a chair but denies pain other than mild discomfort at her surgical site which has been managed with Tylenol per nursing. Physical Exam Vital Signs Date Time Temp Pulse Resp B/P (MAP) Pulse Ox O2 Delivery O2 Flow Rate FiO2 02/09/19 07:45 98.2 89 15 105/60 (75) 93 Room Air 02/08/19 07:10 0.5 Intake and Output 02/09/19 07:03 Intake Total 1320 ml Balance 1320 ml Intake Oral 1320 ml # Voids 21 # Bowel Movements 10 General Appearance: Alert, Awake, No Acute Distress Neuro: Other (Short term memory is poor at times.) Cardiovascular: Regular Rate and Rhythm Respiratory: Clear to Auscultation GI: Soft and Non-Tender Extremities: Warm, Perfused Psych: Appropriate Mood & Affect Assessment and Plan Problems: (1) Hip fracture Assessment & Plan: Surgical repair done by Dr. Purcell on 01/30. Patient on aspirin 325mg daily for anticoagulation. She continues to work with PT/OT for strength building. MOCA score of 20/30 showing mild cognitive linguistic deficits. ST recommending constant supervision upon discharge if current deficits do not improve. Oxy IR changed to Q4 PRN for better pain management. The patient has been mostly using Tylenol for pain. (2) Alcoholism Status: Chronic Assessment & Plan: History of alcoholism. Thiamine and folic acid supplements daily. Did not detox on this admission. (3) Tobacco abuse Status: Chronic Assessment & Plan: Nicotine replacement PRN if necessary. (4) Hyponatremia Status: Chronic Assessment & Plan: Chronic Hyponatremia secondary to low dietary intake and excessive alcohol intake. Sodium level has remained stable on this admission. Fluid restriction of 2000cc per day was ordered. Will recheck labs in am. Time Spent on Plan of Care: < 30 min RHYS AIMN MD Feb 09, 2019 12:57
--- NOTE | 2019-02-09 13:01 | NUR ---
5-day MDS completed with pt. C: 13, D: 03, E: fluctuations in inattention and disorganized thinking, Q: plan to DC to community, referral already made for HHS at DC. Will continue to follow for DC needs.
[2019-02-09 15:33] VITALS: BP 140/69
--- NOTE | 2019-02-09 15:46 | Medical Nutrition Therapy ---
Nutrition Anthropometrics Height (Inches): 67.00 Height (Calculated Centimeters: 170.071784 Weight (Pounds): 140 Weight (Calculated Kilograms): 63.871 BMI: 23.3 Evan Nutrition Score: Probably Inadequate Evan Nutrition Risk Score: 16 Dietary Referral Nutrition Risk Factors: Nutrition Risk Comment: Alcoholic, appears malnourished Physical Findings Physical Appearance: WNR Skin Appearance Skin Appearance: Edema Edema Location Modifier: Edema Location: Type of Edema: Degree of Edema: Gastrointestinal Symptoms GI Symtoms: Constipation Tube Present: Bowel Sounds: Recent Bowel Pattern: Constipated Stool Characteristics: Nutrition/Food History Snacks: Typically eats 2 meals/day at home Nutritional Diagnosis Nutritional Risk Acuity 2: Pr Appetite > 3d Nutritional Risk Acuity 3: ST I/II Pressure Ulcer, Alcohol abuse Past Medical History: alcohol 12+ beers/day, hyponatremia Nutritional Acuity: 3-Mild Energy Requirement: 1632 (MSJ (AF1.3)) Protein Requirement: 68 (1g/kg) Fluid Requirement: 1693 (25mL/kg) Nutrition Intervention: Cont diet as ordered Nutrition Monitoring & Eval Nutrition Goals: Eat 75-100% Meal, Fluid Restrictions Nutrition Follow-Up: Fair Intake Nutrition Monitoring: Weight, PO Intake RD Patient Assessment Time: [address] Assessment Type: RD Re-Assessment Patient Nutrition Acuity: 3-Mild Follow Up Date: Feb 17, 2019 Nutritional Comment: 02/03/19-Reviewed current and past medical hx. Pt admitted to [facility] s/p hip fracture. Signifcant PMH includes ETOH abuse, hyponatremia, Tongue cancer. Pt stated her typical intake is 2-3 small meals per day at home. Reports a usual body weight of 145-150 lbs and no recent wt loss. Wt on 01/30/19 was 139.5 and current wt 02/02/19 was 149 lbs. Pertinent rx include oxycodone. Taking MVI, Ca/D3, Thiamin, Folic Acid, Mag Ox. Per nursing pt last BM was 01/29/19. Currently recieving dulcolax and MOM. She is on a regular diet, and recently put on a fluid restriction to prevent hyponatremia. She is eating well here 100% x last 3 meals. Given pt history of ETOH abuse will perfrom malnutrition physical assessment next visit. Will continue to monitor intakes, weight, hyponatremia.SHEFALI 02/09/19: Spoke with pt this afternoon. Pt states appetite is good, eating 82% of meals on average. Spoke with pt about getting adequate protein at every meal, discussed sources of protein. Did malnutrition physical assessment. Pt had some evidence of subcutaneous fat loss around orbital region. Appears to be some loss of muscle mass at gastrocnemicus, biceps, deltoids. 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 She only eats 2 meals/day at home <75% of estimated needs for >1 month. In the context of chronic illness alcholism, pt would qualify for moderate protein calorie malnutriton. Pt wt has decreased by ~6% since last assess on 02/03/19, however the pt was put on a fluid restriction and this could be loss of water weight. Will continue to encourage protein intake and weight.BORIS RUIZ Feb 09, 2019 15:46
--- NOTE | 2019-02-09 16:00 | NUR ---
ST Impression Cognitive linguistic tx session completed with focus on deficits in memory, insight, and problem solving. Pt recalled 2/4 safety precautions independently (following extensive verbal and written review), increasing to 3/4 with mod assist. Pt also continues with general confusion re: current location, situation, and timeline of hospitalization. Pt referred to cell phone to independently recall month, date, day of week. However, pt continues with lacking knowledge of current year, and difficulty recalling recent or upcoming events. Established visual aide (calendar) in room to assist with orientation and knowledge of hospitalization course (hospital admission, hip surgery date, transfer to [facility], upcoming meeting). Pt will likely require repeated reinforcement and assisted exposure to information. During problem solving activities, pt exhibited emerging recognition of the importance of fall prevention precautions; however, insight is significantly lacking with reduced mental flexibility when asked to apply these techniques to the pt's own life or hypothetical scenarios upon d/c to home environment. It is suspected pt is near PLOF from a cognitive-linguistic standpoint. ST will continue to see x1-2 additional tx sessions to reinforce prevention techniques and address other safety concerns.
[2019-02-09] MEDS: MELATONIN 3 MG TAB PO SCH (20:39)
[2019-02-10 06:33] LABS: PLATELET COUNT, AUTOMATED 367 K/uL (150-450)
[2019-02-10 07:24] VITALS: BP 131/72
[2019-02-10] MEDS: amLODIPine BESYL(*) 5 MG TAB PO SCH (09:00)
[2019-02-10 09:03] VITALS: BP 119/64
[2019-02-10] MEDS: MAGNESIUM OXIDE 400 MG TAB PO SCH ×2 (09:04→20:20)
[2019-02-10] MEDS: CALCIUM CARBONATE/VITAMIN D3 PO SCH (09:04)
[2019-02-10] MEDS: MULTIVITAMINS TAB PO SCH (09:04)
[2019-02-10] MEDS: THIAMINE HCL 100 MG TAB PO SCH (09:04)
[2019-02-10] MEDS: ASPIRIN 325 MG ENTERIC COATED PO SCH (09:04)
[2019-02-10] MEDS: FOLIC ACID 1 MG TAB PO SCH (09:05)
--- NOTE | 2019-02-10 13:52 | NUR ---
Physical Therapy Impression Pt demonstrating improved activity tolerance. PT instructed pt in standing balance task with UE and trunk movement while pt completed large crossword puzzle, simulating other functional tasks. Pt with improved standing tolerance, but with pain towards end of standing bout. Pt requires verbal cues for safety with stand to sit with walker as she tends to neglect the walker when going to sit. Ambulation x160' with RW and overall good tolerance. COntinue with POC Physical Therapy Goals 1: Pt to complete bed mobility with Kaitlynn 2: Pt to complete transfers with Kaitlynn and RW 3: Pt to ambulate 150' with SBA and RW 4: Pt to asc/desc 3x4 stairs with railing and SBA 5: Pt to ambulate 10' on uneven surface with SBA. Patient's Goals
--- NOTE | 2019-02-10 14:03 | NUR ---
Occupational Therapy Impression SBA ambulation x70ft, x40ft, x90ft with RW. Incorporating dynamic balance challenges with B UEs with SBA. Pt able to retrieve item off floor with SBA. Independent grooming standing [id number]. Continue POC. Occupational Therapy Goals 1) Pt will be Modified Independent UB/LB dressing. 2) Pt will be Independent grooming/hygiene. 3) Pt will be Min A shower task seated. 4) Pt will be Modified Independent toilet task. 5) Pt will be educated on appropriate adaptive equipment needs. 6) Pt Rachel Index of ADLs score will improve by 2 points. Patient's Goal
--- NOTE | 2019-02-10 14:34 | NUR ---
Dr. Choi's office notified that resident was still an inpatient.
--- NOTE | 2019-02-10 15:33 | NUR ---
Pt. was offered activities this afternoon while sitting up in chair and watching tv. She said she would like to try and walk outside tomorrow morning because her leg is hurting. I will check in with her tomorrow. Pt. participated in [employer] exchange. Pt. is sending a card to [facility] and would like her exchanged card sent back to her.
--- NOTE | 2019-02-10 15:45 | NUR ---
ST Impression Cognitive linguistic tx session completed w/ continued focus on deficits in memory, insight, and problem solving. Pt recalled 2/3 safety precautions independently, increasing to 3/3 with min assist. Pt exhibited reduced confusion re: current location, situation, and timeline of hospitalization vs prior encounter. She referred to external visual aides (calendar, wall signage, etc) either independently or with min assist to support temporal orientation (including knowledge of current year), course of hospitalization, and past/ upcoming events. However, pt will likely benefit from repeated reinforcement and assisted exposure to information. Thought pt continues to exhibit some reduced insight into functional deficits and safety concerns, it appears that she is at her baseline from a cognitive linguistic standpoint. ST to d/c at this time. Please do not hesitate to contact if change in status warrants repeat evaluation.
[2019-02-10 17:00] VITALS: BP 118/66
[2019-02-10] MEDS: MELATONIN 3 MG TAB PO SCH (20:20)
[2019-02-10] MEDS: ACETAMINOPHEN 500 MG TAB PO PRN (20:24)
[2019-02-11 07:16] VITALS: BP 134/67
[2019-02-11] MEDS: FOLIC ACID 1 MG TAB PO SCH (08:54)
[2019-02-11] MEDS: amLODIPine BESYL(*) 5 MG TAB PO SCH (08:54)
[2019-02-11] MEDS: MAGNESIUM OXIDE 400 MG TAB PO SCH ×2 (08:54→20:35)
[2019-02-11] MEDS: MULTIVITAMINS TAB PO SCH (08:54)
[2019-02-11] MEDS: THIAMINE HCL 100 MG TAB PO SCH (08:54)
[2019-02-11] MEDS: ASPIRIN 325 MG ENTERIC COATED PO SCH (08:54)
[2019-02-11] MEDS: CALCIUM CARBONATE/VITAMIN D3 PO SCH (08:54)
--- NOTE | 2019-02-11 15:17 | NUR ---
Physical Therapy Impression Pt demonstrated a step-to gait pattern. Verbal cueing for increasing stance phase on R LE and stride length with L LE. Pt able to improve gait quality with verbal cueing. Pt politely declined stair training today due to increased pain and soreness in R LE. Physical Therapy Goals 1: Pt to complete bed mobility with Kaitlynn 2: Pt to complete transfers with Kaitlynn and RW 3: Pt to ambulate 150' with SBA and RW 4: Pt to asc/desc 3x4 stairs with railing and SBA 5: Pt to ambulate 10' on uneven surface with SBA. Patient's Goals
--- NOTE | 2019-02-11 15:19 | NUR ---
ACTIVITIES: Pt. was offered to go outside, and do bingo. Pt. accepted to do bingo. We didn't get to go outside because it started raining heavily. Pt. enjoyed bingo to, "get out and do something but watch TV."
[2019-02-11 17:05] VITALS: BP 138/70
[2019-02-11] MEDS: ACETAMINOPHEN 500 MG TAB PO PRN (20:35)
[2019-02-11] MEDS: MELATONIN 3 MG TAB PO SCH (20:35)
[2019-02-12 07:24] VITALS: BP 123/72
[2019-02-12] MEDS: amLODIPine BESYL(*) 5 MG TAB PO SCH (09:00)
[2019-02-12] MEDS: MAGNESIUM OXIDE 400 MG TAB PO SCH ×2 (09:12→20:27)
[2019-02-12] MEDS: CALCIUM CARBONATE/VITAMIN D3 PO SCH (09:13)
[2019-02-12] MEDS: THIAMINE HCL 100 MG TAB PO SCH (09:13)
[2019-02-12] MEDS: FOLIC ACID 1 MG TAB PO SCH (09:13)
[2019-02-12] MEDS: ASPIRIN 325 MG ENTERIC COATED PO SCH (09:13)
[2019-02-12] MEDS: MULTIVITAMINS TAB PO SCH (09:13)
--- NOTE | 2019-02-12 09:31 | NUR ---
[id number] completed and categorical determination faxed to [facility] at [phone].
--- NOTE | 2019-02-12 12:28 | NUR ---
Occupational Therapy Impression UB ther ex HEP. SBA ambulation 2x50ft with RW. Dyspneic with functional mobility this date. SpO2 >92% on room air, HR 120s. Mod (I) toileting. Pt has met all skilled OT goals. Reports no further concerns to address with OT at this time. Plan for final visit tomorrow to address further needs and (I) with UB HEP for continued strengthening. Occupational Therapy Goals 1) Pt will be Modified Independent UB/LB dressing. 2) Pt will be Independent grooming/hygiene. 3) Pt will be Min A shower task seated. 4) Pt will be Modified Independent toilet task. 5) Pt will be educated on appropriate adaptive equipment needs. 6) Pt Rachel Index of ADLs score will improve by 2 points. Patient's Goal
[2019-02-12] MEDS: ACETAMINOPHEN 500 MG TAB PO PRN ×2 (15:12→23:39)
--- NOTE | 2019-02-12 15:26 | NUR ---
Physical Therapy Impression Pt tolerated TUG test and completed this in 30 seconds. Thereafter, pt addressed stair trng up/down 5 steps with B) hands on single rail. Pt became somewhat fearful after descending 5 stairs but was able to return up the stairs and complete ambulation x 200' with hallway with one sitting rest break after 100'. Pt progressing well but indicates that she hopes to have her room on the main floor once home rather than doing the stairs. Physical Therapy Goals 1: Pt to complete bed mobility with Kaitlynn 2: Pt to complete transfers with Kaitlynn and RW 3: Pt to ambulate 150' with SBA and RW 4: Pt to asc/desc 3x4 stairs with railing and SBA 5: Pt to ambulate 10' on uneven surface with SBA. Patient's Goals
[2019-02-12] MEDS: MELATONIN 3 MG TAB PO SCH (20:27)
[2019-02-13 07:25] VITALS: BP 129/65
[2019-02-13] MEDS: ASPIRIN 325 MG ENTERIC COATED PO SCH (08:35)
[2019-02-13] MEDS: CALCIUM CARBONATE/VITAMIN D3 PO SCH (08:35)
[2019-02-13] MEDS: FOLIC ACID 1 MG TAB PO SCH (08:38)
[2019-02-13] MEDS: MAGNESIUM OXIDE 400 MG TAB PO SCH ×2 (08:38→20:25)
[2019-02-13] MEDS: THIAMINE HCL 100 MG TAB PO SCH (08:38)
[2019-02-13] MEDS: MULTIVITAMINS TAB PO SCH (08:38)
[2019-02-13] MEDS: ACETAMINOPHEN 500 MG TAB PO PRN ×2 (08:39→20:24)
[2019-02-13] MEDS: amLODIPine BESYL(*) 5 MG TAB PO SCH (09:00)
[2019-02-13 15:12] VITALS: BP 120/71
--- NOTE | 2019-02-13 15:24 | NUR ---
VM left for dtr Soha regarding pt's care conference scheduled for 02/17 at 1415. [facility] invited as well.
--- NOTE | 2019-02-13 15:26 | NUR ---
14-day MDS completed with pt. C: 12, D: 01, E: fluctuations in inattention and disorganized thinking, Q: plan to DC to community, referral already made for HHS at DC. Will continue to follow for DC needs.
--- NOTE | 2019-02-13 15:40 | NUR ---
Physical Therapy Impression Pt with minimal recall of previous therapy sessions and minimal carryover of previous gait training. Pt able to ambulate 350' with RW and SBA with verbal cueing for step through gait pattern. Pt able to ascend/descend 4 stairs x 4 reps with bilateral handrails and CGA. Pt required constant verbal cueing for appropriate sequence for stair negotiation. Pt will benefit from additional gait and stair training. Physical Therapy Goals 1: Pt to complete bed mobility with Kaitlynn 2: Pt to complete transfers with Kaitlynn and RW 3: Pt to ambulate 150' with SBA and RW 4: Pt to asc/desc 3x4 stairs with railing and SBA 5: Pt to ambulate 10' on uneven surface with SBA. Patient's Goals
[2019-02-13] MEDS: MELATONIN 3 MG TAB PO SCH (20:24)
[2019-02-14] MEDS: ACETAMINOPHEN 500 MG TAB PO PRN ×2 (05:49→20:33)
[2019-02-14 07:28] VITALS: BP 150/76
[2019-02-14] MEDS: MULTIVITAMINS TAB PO SCH (09:11)
[2019-02-14] MEDS: THIAMINE HCL 100 MG TAB PO SCH (09:11)
[2019-02-14] MEDS: ASPIRIN 325 MG ENTERIC COATED PO SCH (09:11)
[2019-02-14] MEDS: amLODIPine BESYL(*) 5 MG TAB PO SCH (09:12)
[2019-02-14] MEDS: MAGNESIUM OXIDE 400 MG TAB PO SCH ×2 (09:12→20:33)
[2019-02-14] MEDS: CALCIUM CARBONATE/VITAMIN D3 PO SCH (09:12)
[2019-02-14] MEDS: FOLIC ACID 1 MG TAB PO SCH (09:12)
[2019-02-14 15:55] VITALS: BP 133/85
--- NOTE | 2019-02-14 18:12 | NUR ---
Pt up walking in room without walker, looking in closet. Pt states "I need new clothes, these are all dirty". Pt teaching provided re: calling for assistance and waiting for help prior to ambulating to avoid falls. Pt states "I haven't fallen, that was over 6 months ago that I last fell". Pt was assisted back to chair with new clothes, call light within reach.
[2019-02-14] MEDS: MELATONIN 3 MG TAB PO SCH (20:33)
[2019-02-15 07:25] VITALS: BP 130/67
[2019-02-15] MEDS: CALCIUM CARBONATE/VITAMIN D3 PO SCH (08:35)
[2019-02-15] MEDS: MAGNESIUM OXIDE 400 MG TAB PO SCH ×2 (08:35→20:46)
[2019-02-15] MEDS: THIAMINE HCL 100 MG TAB PO SCH (08:35)
[2019-02-15] MEDS: amLODIPine BESYL(*) 5 MG TAB PO SCH (08:35)
[2019-02-15] MEDS: MULTIVITAMINS TAB PO SCH (08:35)
[2019-02-15] MEDS: ASPIRIN 325 MG ENTERIC COATED PO SCH (08:35)
[2019-02-15] MEDS: FOLIC ACID 1 MG TAB PO SCH (08:35)
[2019-02-15] MEDS: ACETAMINOPHEN 500 MG TAB PO PRN ×2 (08:40→20:46)
[2019-02-15 15:35] VITALS: BP 130/65
[2019-02-15] MEDS: MELATONIN 3 MG TAB PO SCH (20:46)
[2019-02-16] MEDS: ACETAMINOPHEN 500 MG TAB PO PRN ×2 (05:43→20:27)
[2019-02-16 07:43] VITALS: BP 94/65
[2019-02-16] MEDS: amLODIPine BESYL(*) 5 MG TAB PO SCH (09:00)
[2019-02-16] MEDS: MULTIVITAMINS TAB PO SCH (09:24)
[2019-02-16] MEDS: FOLIC ACID 1 MG TAB PO SCH (09:24)
[2019-02-16] MEDS: ASPIRIN 325 MG ENTERIC COATED PO SCH (09:24)
[2019-02-16] MEDS: CALCIUM CARBONATE/VITAMIN D3 PO SCH (09:24)
[2019-02-16] MEDS: MAGNESIUM OXIDE 400 MG TAB PO SCH (09:24)
[2019-02-16] MEDS: THIAMINE HCL 100 MG TAB PO SCH (09:24)
--- NOTE | 2019-02-16 10:07 | NUR ---
OCCUPATIONAL THERAPY Dressing Assistance: Independent Dressing Aid Required: None Bathing Assistance: Mod (I) with occasional assist to manage handheld shower head. Bathing Equipment: Shower Chair Home Assessment: Not Completed-Would benefit from fall prevention assessment and education within the home. Feeding Assistance: Independent Feeding Specialized Equipment: None Toilet Use: Modified I/ AE Verbalizes Needs: Yes Understands Precautions: Yes Cooperative: Yes Family Teaching: Yes Occupational Therapy Comment:
--- NOTE | 2019-02-16 10:18 | OT ECF NOTE ---
Type of Note: Discharge Note Primary Medical Diagnosis: Generalized weakness s/p Right Hip ORIF. *WBAT* Occupational Therapy Evaluation Date: 02/02/19 SUBJECTIVE: Prior Hospitalization: [facility] 01/29/19 thru 02/02/19. DOS: 01/30/[address] Purcell Prior Level of Function: Independent with ADLs/medication management. Ambulation with no assistive device. Family assists with IADLs. Prior Living Status: Bi-level house Living with family-Daughter and son-in-law Assist by family Community Services: No known needs Home Accessibility: Stairs with rails-Resides in basement Stairs without rails-to enter home Basement in home Walk-in shower Equipment Owned: None Medical Complications/Past Medical History: HTN, hyponatremia. Please refer to EMR for further details. Psychosocial Support: Supportive family Pain Scale (0-10): No pain at rest. Pain reported with functional mobility. No numerical rating provided. OBJECTIVE: Patient oriented to self and location. Not oriented to date. Reporting January 1977. Reoriented appropriately with cues. 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 WFL (5= normal, 4= good, 3= fair, 2= poor, 1= trace) ROM: Both upper extremities, WFL Sensation: No paraesthesia reported Functional Transfer: Assistive Device: Front wheeled walker Transfer Ability: Modified Independent ADL: Upper body dressing: Assistive device: None Upper body dressing ability: Independent Lower body dressing: Assistive device: None Lower body dressing ability: Independent Toileting: Assistive device: Toilet riser Toileting ability: Modified Independent Grooming/hygiene: Assistive device: None Grooming ability: Independent Bathing: Assistive device: Shower chair Bathing ability: Modified Independent with assist to manage hand held shower head. Standardized Assessment: Rachel Index of Activities of Daily Livin/20 upon initial evaluation (02/02/19). upon discharge (02/16/19). ASSESSMENT: Arely presented to [facility] requiring one assist for ADLs and stand pivot transfers with RW. At [facility], she was independent with ADLs and ambulating with no assistive device. She has met all skilled OT goals and presents with no further questions/concerns for OT at this time. Short Term Goals: 1) Pt will be Modified Independent UB/LB dressing. GOAL MET 2) Pt will be Independent grooming/hygiene. GOAL MET 3) Pt will be Min A shower task seated. GOAL MET 4) Pt will be Modified Independent toilet task. GOAL MET 5) Pt will be educated on appropriate adaptive equipment needs. GOAL MET 6) Pt Rachel Index of ADLs score will improve by 2 points. GOAL MET Subject Scientific Research Goals: Return home with continued assist from family and HH services. Patient Goals: Move around better Rehabilitation Prognosis: Good Barriers to Discharge: Pain PLAN: The patient will discharge home with HH services and assist from family for IADLs. Thank you for this referral. If you have any questions, concerns, or comments about this report or plan, please contact me at . Eliane Andrew MS, OTR/L Occupational Therapist [place]
--- NOTE | 2019-02-16 11:10 | NUR ---
Physical Therapy Impression Patient presents in room and is agreeable to therapy. Patient was taken outside for ambulation on uneven terrain. Patient was taken in w/c with no leg rests to first floor to ambulate outdoors in front of OP rehab clinic. Patient ambulated with FWW CGA on uneven terrain ~530 feet on cement, grass, rocks with one seated rest break residential. Patient also descended and ascended a long ramp. Patient was able to maneuver her walker over uneven terrain with CGA only for safety. Patient's plan is to d/c from physical therapy tomorrow and d/c from facility the following day. Patient demonstrated step through gait and good safety awareness with ambulation. Patient was left in room with call light and all needs met. Physical Therapy Goals 1: Pt to complete bed mobility with Kaitlynn 2: Pt to complete transfers with Kaitlynn and RW 3: Pt to ambulate 150' with SBA and RW 4: Pt to asc/desc 3x4 stairs with railing and SBA 5: Pt to ambulate 10' on uneven surface with SBA. Patient's Goals
[2019-02-16 12:31] VITALS: BP 111/61
--- NOTE | 2019-02-16 14:44 | Medical Nutrition Therapy ---
Nutrition Anthropometrics Height (Inches): 67.00 Height (Calculated Centimeters: 170.332026 Weight (Pounds): 140 Weight (Calculated Kilograms): 63.871 BMI: 23.3 Evan Nutrition Score: Probably Inadequate Evan Nutrition Risk Score: 16 Dietary Referral Nutrition Risk Factors: Nutrition Risk Comment: Alcoholic, appears malnourished Physical Findings Physical Appearance: WNR Skin Appearance Skin Appearance: Edema Edema Location Modifier: Edema Location: Type of Edema: Degree of Edema: Gastrointestinal Symptoms GI Symtoms: Constipation Tube Present: Bowel Sounds: Recent Bowel Pattern: Constipated Stool Characteristics: Nutritional Diagnosis Nutritional Risk Acuity 2: Pr Appetite > 3d Nutritional Risk Acuity 3: ST I/II Pressure Ulcer, Alcohol abuse Past Medical History: alcohol 12+ beers/day, hyponatremia Nutritional Acuity: 3-Mild Energy Requirement: 1632 (MSJ (AF1.3)) Protein Requirement: 68 (1g/kg) Fluid Requirement: 1693 (25mL/kg) Nutrition Intervention: Cont diet as ordered Nutrition Monitoring & Eval Nutrition Goals: Eat 75-100% Meal Nutrition Follow-Up: Good Intake RD Patient Assessment Time: [address] Assessment Type: RD Re-Assessment Patient Nutrition Acuity: 3-Mild Follow Up Date: Feb 24, 2019 Nutritional Comment: 02/03/19-Reviewed current and past medical hx. Pt admitted to [facility] s/p hip fracture. Signifcant PMH includes ETOH abuse, hyponatremia, Tongue cancer. Pt stated her typical intake is 2-3 small meals per day at home. Reports a usual body weight of 145-150 lbs and no recent wt loss. Wt on 01/30/19 was 139.5 and current wt 02/02/19 was 149 lbs. Pertinent rx include oxycodone. Taking MVI, Ca/D3, Thiamin, Folic Acid, Mag Ox. Per nursing pt last BM was 01/29/19. Currently recieving dulcolax and MOM. She is on a regular diet, and recently put on a fluid restriction to prevent hyponatremia. She is eating well here 100% x last 3 meals. Given pt history of ETOH abuse will perfrom malnutrition physical assessment next visit. Will continue to monitor intakes, weight, hyponatremia.SHEFALI 02/09/19: Spoke with pt this afternoon. Pt states appetite is good, eating 82% of meals on average. Spoke with pt about getting adequate protein at every meal, discussed sources of protein. Did malnutrition physical assessment. Pt had some evidence of subcutaneous fat loss around orbital region. Appears to be some loss of muscle mass at gastrocnemicus, biceps, deltoids. 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 She only eats 2 meals/day at home <75% of estimated needs for >1 month. In the context of chronic illness alcholism, pt would qualify for moderate protein calorie malnutriton. Pt wt has decreased by ~6% since last assess on 02/03/19, however the pt was put on a fluid restriction and this could be loss of water weight. Will continue to encourage protein intake and weight.SHEFALI 02/16/19: Spoke with pt this afternoon. She reports good appetite. Her average meal intake is ~86% since last assessment on 02/09/19. No new weight, will request. Encouraged pt to continue to eat plenty of protein for healing. Will continue to monitor intake and weight.BORIS RUIZ Feb 16, 2019 14:44
--- NOTE | 2019-02-16 15:03 | Hospitalist Progress Note ---
Subjective Progress Notes Subjective Doing well. No new complaints. Physical Exam Vital Signs Date Time Temp Pulse Resp B/P (MAP) Pulse Ox O2 Delivery O2 Flow Rate FiO2 02/16/19 13:00 94 Room Air 02/16/19 12:31 111/61 (78) 02/16/19 07:43 97.0 89 17 02/15/19 15:35 95.0 Intake and Output 02/16/19 07:03 Intake Total 1440 ml Balance 1440 ml Intake Oral 1440 ml # Voids 7 General Appearance: Alert, Awake, Other (The patient looks much younger now than she did on admission. Color is much better. She is much more alert.) Neuro: No Gross deficits Eyes: PERRLA Cardiovascular: Regular Rate and Rhythm Respiratory: Clear to Auscultation GI: Soft and Non-Tender Extremities: Warm, Perfused Psych: Appropriate Mood & Affect Result Diagram: 02/13/19 0701 Assessment and Plan Problems: (1) Hip fracture Assessment & Plan: Surgical repair done by Dr. Purcell on 01/30. Patient on asp irin 325mg daily for anticoagulation. She continues to work with PT/OT for strength building. MOCA score of 20/30 showing mild cognitive linguistic deficits. ST recommending constant supervision upon discharge if current deficits do not improve. The patient has been mostly using Tylenol for pain. (2) Alcoholism Status: Chronic Assessment & Plan: History of alcoholism. Thiamine and folic acid supplements daily. Did not detox on this admission. (3) Tobacco abuse Status: Chronic Assessment & Plan: Nicotine replacement ordered but has not been used. (4) Hyponatremia Status: Chronic Assessment & Plan: Chronic Hyponatremia secondary to low dietary intake and excessive alcohol intake. Sodium level has remained stable on this admission. Fluid restriction of 2000cc per day was stopped and her sodium has remained stable. Time Spent on Plan of Care: < 30 min RHYS AMIN MD Feb 16, 2019 15:03
--- NOTE | 2019-02-16 15:09 | Hospitalist Depart ---
Discharge Summary Reason for Hosp/Final Diag: (1) Hip fracture Hospital Course & Plan: Surgical repair done by Dr. Purcell on 01/30. Patient on aspirin 325mg daily for anticoagulation. She should continue this until March 01. She was transferred to [facility] and continued to work with PT/OT for strength building. The patient has been mostly using Tylenol for pain. (2) Alcoholism Status: Chronic Hospital Course & Plan: History of alcoholism. Thiamine and folic acid supplements ordered daily. Did not detox on this admission as she had recently had an inpatient admission for severe hyponatremia and did detox then. (3) Tobacco abuse Status: Chronic Hospital Course & Plan: Nicotine replacement ordered but was not used. (4) Hyponatremia Status: Chronic Hospital Course & Plan: Chronic Hyponatremia secondary to low dietary intake and excessive alcohol intake. Sodium level remained stable on this admission. (5) Cognitive decline Status: Chronic Hospital Course & Plan: MOCA score of 20/30 showing mild cognitive linguistic deficits. ST recommending constant supervision upon discharge if deficits persist. Departure Weight (Pounds): 140 Weight (Ounces): 13.0 Result Diagram: 02/13/19 0701 Condition: Improved Discharge: Home, Home Health PT/OT Follow Up For: PT For Strengthening, OT For ADL's, ST Evaluation and Treat Home Health RN Follow Up For: Nursing Assessment Home Health INTERVENTIONAL NURSE Follow Up For: ADL Assistance Time Spent: < 30 min Discharge Instructions Home Meds Active Scripts Melatonin (MELATONIN) 3 Mg Tablet, 3 MG PO QHS PRN for INSOMNIA, #30 TAB Prov:RHYS AMIN MD 02/16/19 Aspirin (ASPIRIN EC) 325 Mg Tablet.dr 325 MG PO QDAY, #30 TAB Prov:RHYS AMIN MD 02/16/19 Amlodipine Besylate (AMLODIPINE BESYLATE) 10 Mg Tablet, 1 TAB PO QDAY, #90 TAB 3 Refills Prov:MARI GRAY MD 07/10/18 Reported Medications Magnesium Oxide (MAGNESIUM OXIDE) 400 Mg Tablet, 400 MG PO BID 01/17/19 Mu-Vits-Min Th/Lycopene/Lutein (CENTRUM SILVER TABLET) 1 Each Tablet, 1 EACH PO DAILY 01/17/19 Calcium Carbonate/Vitamin D3 (CALCIUM + VITAMIN D TABLET) 1 Each Tablet, 1 EACH PO DAILY 01/17/19 Thiamine HCl (B-1) 100 Mg Tablet, 1 TAB PO DAILY 01/17/19 Folic Acid (FOLIC ACID) 1 Mg Tablet, 1 MG PO QDAY, TAB 01/17/19 Follow up Referrals: Internal Medicine - In Two Weeks @ [facility]Primary with MARI GRAY MD Diet: Regular Activity: As Tolerated Special Instructions: The patient is to continue abstinence from all alcohol at discharge. Copies to: MARI GRAY MD ; Venous Thromboembolism Antithrombotics Is Pt On Any Antithrombotics?: Yes (ASA for DVT prophylaxis.) [id number] Certification Face to Face Home Health Certification Patient's Primary Care Provider: Mari Gray MD Institutional Provider conducted the [id number] encounter. Electronic Undersigning Physician Certifies Home Health. I certify that the patient has been under my care and that I had a [id number] encounter that meets the physician [id number] encounter requirements with this patient. This patient is home-bound due to safety issues and continues to require assistance with ADL's. I certify that based on my findings, that Nursing, Aides and the following Home Health services are medically necessary: PT, OT, ST Medical Necessity: Nursing, Rehab Date Face to Face Conducted: Feb 16, 2019 RHYS AMIN MD Feb 16, 2019 15:09
[2019-02-16 15:10] VITALS: BP 127/63
[2019-02-16] MEDS ORDERED: ASPI-764 PO (15:12)
[2019-02-16] MEDS ORDERED: MELA3TAB31 PO (15:12)
[2019-02-16] MEDS: MELATONIN 3 MG TAB PO SCH (20:26)
[2019-02-17 07:20] VITALS: BP 146/84
[2019-02-17] MEDS: ACETAMINOPHEN 500 MG TAB PO PRN ×2 (07:53→21:19)
--- NOTE | 2019-02-17 08:01 | NUR ---
Dr. Choi's office notified of discharge planned for tomorrow 02/18. Face to face for home health therapy was completed by Dr. Luan Sandhu.
--- NOTE | 2019-02-17 09:00 | NUR ---
DC MDS completed with pt. C: 13, D: 02, E: fluctuations in inattention and disorganized thinking, Q: plan to DC to community, referral already made for HHS at [place]. Will continue to follow for DC needs.
[2019-02-17] MEDS: CALCIUM CARBONATE/VITAMIN D3 PO SCH (09:07)
[2019-02-17] MEDS: THIAMINE HCL 100 MG TAB PO SCH (09:07)
[2019-02-17] MEDS: MULTIVITAMINS TAB PO SCH (09:08)
[2019-02-17] MEDS: ASPIRIN 325 MG ENTERIC COATED PO SCH (09:08)
[2019-02-17] MEDS: FOLIC ACID 1 MG TAB PO SCH (09:08)
[2019-02-17] MEDS: amLODIPine BESYL(*) 5 MG TAB PO SCH (09:08)
--- NOTE | 2019-02-17 15:39 | NUR ---
ACTIVITIES: pt. ambulated outside, and socialized with other pt. Outside for about 30 minutes.
--- NOTE | 2019-02-17 15:49 | PT ECF NOTE ---
Type of Note: Discharge Note Primary Medical Diagnosis: R) hip ORIF, s/p hip fracture Physical Therapy Evaluation Date: 02/02/2019 SUBJECTIVE: Prior Hospitalization: [facility] 01/29/19-02/02/19 Prior Level of Function: Pt reports that she was I) with no AD at PLOF Prior Living Status: Bi-level house, Living with family -- pt reports that she lives in the basement at her daughter's home, with 12 stairs with railing to access basement Community Services: No known needs Home Accessibility: Stairs with rails Equipment Owned: None Medical Complications/Past Medical History: See EMR Psychosocial Support: Daughter Pain Scale (0-10): None reported with d/c visit. OBJECTIVE: Strength: Right Lower Extremity: DF: 4/5 Knee flexion: 4-/5 Knee extension: 4-/5 Hip flexion: 4-/5 Left Lower Extremity: DF: 4/5 Knee flexion: 4-/5 Knee extension: 4-/5 Hip flexion: 4-/5 ROM: B) LE's WFL Sensation: WNL Other Neuro findings: None noted Bed Mobility: Indep Transfers: Mod Indep with RW Gait: Mod indep with RW x 300' Stairs: Verbal cues for proper technique and SBA with rail for up/down 12 steps. ASSESSMENT: From a mobility standpoint, pt's last visit today addressed all final goals and pt demos adequate strength overall for improved functional mobility. Pt demos poor carry over of teaching for safer technique with stairs and would benefit from family SBA and verbal cues for "up with the good and down with the bad" until she is further able to habituate this skill in her environment. Pt would benefit from further rehab in the home environment as well, with [facility] scheduled to follow up. Short Term Goals: (Met) 1: Pt to complete bed mobility with Kaitlynn 2: Pt to complete transfers with Kaitlynn and RW 3: Pt to ambulate 150' with SBA and RW 4: Pt to asc/desc 3x4 stairs with railing and SBA 5: Pt to ambulate 10' on uneven surface with SBA. Mcfp Goals: Pt to d/c to prior living situation with decreased need of assistance from others. (Met) Patient Goals: "Get out of here" Rehabilitation Prognosis: Good Barriers for Discharge: Apparent confusion, high level of independence needed to d/c home. PLAN: Pt to have [facility] services as follow up to continue with habituation of safety awareness skills. Thank you for this referral. If you have any questions, concerns, or comments about this report or plan, please contact me at . H. Mckayla Sofia, PT, MPT, OMS MTDD
[2019-02-17 16:10] VITALS: BP 145/75
[2019-02-17] MEDS: MELATONIN 3 MG TAB PO SCH (21:19)
[2019-02-18 06:52] LABS: PLATELET COUNT, AUTOMATED 436 K/uL (150-450)
[2019-02-18 07:35] VITALS: BP 125/72
[2019-02-18] MEDS: ASPIRIN 325 MG ENTERIC COATED PO SCH (08:28)
[2019-02-18] MEDS: MULTIVITAMINS TAB PO SCH (08:28)
[2019-02-18] MEDS: FOLIC ACID 1 MG TAB PO SCH (08:28)
[2019-02-18] MEDS: CALCIUM CARBONATE/VITAMIN D3 PO SCH (08:28)
[2019-02-18] MEDS: amLODIPine BESYL(*) 5 MG TAB PO SCH (08:28)
[2019-02-18] MEDS: THIAMINE HCL 100 MG TAB PO SCH (08:28)
--- NOTE | 2019-02-18 09:12 | NUR ---
Report phoned to BIRGIT Linares at [facility].
== END 2019-02-18 16:00 | disposition home or self-care (01) | DRG 560 ==
LOC: UNDOADMIN 10:12 → SWB 10:12 → UNDOADMIN 11:07
PROVIDERS: ADMIT Internal Medicine; ATTEND Internal Medicine
DX: S72.414D Nondisplaced unspecified condyle fracture of lower end of right femur, subsequent encounter for closed fracture with routine healing (principal); E87.1 Hypo-osmolality and hyponatremia; F17.210 Nicotine dependence, cigarettes, uncomplicated; R41.81 Age-related cognitive decline
CPT/HCPCS: 36415; 82040; 82247; 82310; 82374; 82435; 82565; 82947; 84075; 84132; 84155; 84295; 84450; 84460; 84520; 85025; 97161; 97166